=== PATIENT | male | born 1940 | race Caucasian/White ===

== ENCOUNTER → 2016-08-07 | Outpatient (CLI) | payer MEDICARE, BC ==
[~2016-08-07] MED LIST: REGADENOSON 0.4 MG/5 ML SYRINGE IV ONE
--- NOTE | 2016-08-07 11:11 | NM ---
EXAMINATION TYPE: NM stress Lexiscan cardiolite DATE OF EXAM: 08/07/2016 COMPARISON: NONE HISTORY: Atherosclerosis TECHNIQUE: After the intravenous administration of 10.6 mCi Tc 99m Sestamibi - Cardiolite resting SP ECT images acquired 45 minutes post injection. The patient received 0.4mg Lexiscan, 26.9 mCi Tc 99m Sestamibi - Stress images obtained [address] injection FINDINGS: There is good uptake of radiopharmaceutical by the left ventricle without fixed defect or i nducible ischemic change. Wall motion is normal and ejection fraction is calculated at 59%. IMPRESSION: I DO NOT SEE CONVINCING EVIDENCE OF INDUCIBLE ISCHEMIC CHANGE AT THIS TIME.
--- NOTE | 2016-08-07 11:45 | EST ---
DATE OF SERVICE: 08/07/2016 AGE: 76Y SEX: M HT: 5'5-1/2" WT: 173 lbs. Protocol Varun: Other: Lexiscan Cardiolite Stage: Dur. of Exercise: *Heart Rate Blood Pressure *Rest: 77 Rest: 143/76 * *Max. Achieved: 93 Maximum BP: 199/57 85% PMHR: 122 100% PMHR: 143 *METS: INDICATIONS: MEDICATIONS: Patient was given Lexiscan injection over a period of 15 seconds. The peak heart rate of 93 was achieved. Maximum blood pressure of 199/57 mmHg was noted. Resting EKG shows normal sinus rhythm with a QRS morphology suggestive of a right bundle branch block pattern was noted. No significant ST segment change from the baseline was noted. The results of the nuclear study will follow.
== END | disposition home or self-care (01) ==
LOC: RADNMMAIN 07:35
PROVIDERS: ATTEND Internal Medicine
DX: I25.810 Atherosclerosis of coronary artery bypass graft(s) without angina pectoris (principal); E11.9 Type 2 diabetes mellitus without complications; E78.2 Mixed hyperlipidemia; I61.9 Nontraumatic intracerebral hemorrhage, unspecified
CPT/HCPCS: 93017; 78452; A9500; J2785

== ENCOUNTER → 2016-09-03 | Outpatient (CLI) | payer MEDICARE, BC ==
--- NOTE | 2016-09-03 11:27 | XR ---
EXAMINATION TYPE: XR chest 2V DATE OF EXAM: 09/03/2016 COMPARISON: 11/07/10 HISTORY: Shortness of breath TECHNIQUE: Frontal and lateral views of the chest are obtained. FINDINGS: Scattered senescent parenchymal changes noted. Hyperinflation compatible with COPD. No evidence for infiltrate. No evidence for atelectasis. Heart size is stable. Mediastinal structures are stable and grossly unremarkable. No evidence for hilar prominence. Degenerative changes dorsal spine. IMPRESSION: 1. No evidence for acute pulmonary disease.
== END ==
LOC: RADXRMAIN 11:01
PROVIDERS: ATTEND Family Medicine
DX: R05 Cough (principal); R06.02 Shortness of breath
CPT/HCPCS: 71020

== ENCOUNTER → 2017-01-17 | Outpatient (CLI) | payer MEDICARE, BC ==
--- NOTE | 2017-01-17 15:47 | PN ---
PROGRESS NOTE DATE OF SERVICE: 01/17/2017 76-year-old gentleman has been followed in Sleep Center for treatment of obstructive sleep apnea-hypopnea syndrome. Patient continued successfully to use his CPAP equipment without problems related to the mask, tube, filters. [place] Sleepiness Scale today is 4. I checked his CPAP unit. CPAP pressure is 6 cm of water. Leak is only 11 L/minute which is acceptable. Apnea-hypopnea index is 1.4, which is normal range. Usage is 22/30 nights for more than 4 hours for 1 month and for 6 months is 115/180 nights for more than 4 hours. Average usage is 4.7 hours. MEDICATIONS: Verapamil, aspirin, omeprazole, Nitrostat, Lipitor, tamsulosin, finasteride, Flonase, tolterodine, Advil, , Martha, Gabapentin, calcium supplement. PHYSICAL EXAM: GENERAL Patient in no distress. VITAL SIGNS BP 125/56, HR 64, RR 16, oxygen saturation at room air 94% HEENT PERRLA, EOMI, evaluation of oropharynx showed extremely low position of soft palate. NECK Supple, no JVD. Thyroid is not palpable. LUNGS Clear to percussion and to auscultation. Good air exchange. No wheezing or rhonchi. HEART S1, S2 regular. No murmurs, gallops, or rubs. ABDOMEN Soft and nontender. Bowel sounds are present. No organomegaly appreciated. EXTREMITIES No clubbing or cyanosis. ARTIFICIAL GLASS EYE MAKER Awake, alert, and oriented X3. Cranial nerves 2 to 7 intact. There is no fasciculation or atrophy. noted. No focal deficits observed. IMPRESSION: 1. Obstructive sleep apnea-hypopnea syndrome on control with CPAP at 6 cm of water. Patient demonstrated great compliance with treatment benefitting from treatment. 2. Coronary artery disease, status post CABG in 1993. 3. Status post brain surgery for vessel problem in 1998. 4. Status post right knee surgery. 5. History of benign prostatic hypertrophy. 6. History of sinusitis. 7. Status post back surgery. 8. History of emphysema. PLAN: 1. Prescription for all necessary CPAP supplies. 2. Continue to use equipment every night for the whole night. 3. Sleep hygiene with time in bed for at least 8 hours. 4. No driving if feeling sleepiness. 5. Followup visit in 1 year or earlier if patient has any problems. Thank you very much for allowing me to participate in management of your patient. Sincerely, Ismael Aquino MD, PhD, FAASM Diplomat of [place] [employer] [place] [employer] Physician Office Rep of [facility] [place] OSORIO / FIFI: [id number] /
== END ==
LOC: SLEEP 14:01
PROVIDERS: ATTEND Internal Medicine
DX: G47.33 Obstructive sleep apnea (adult) (pediatric) (principal); I25.10 Atherosclerotic heart disease of native coronary artery without angina pectoris; N40.0 Benign prostatic hyperplasia without lower urinary tract symptoms; J43.9 Emphysema, unspecified; J32.9 Chronic sinusitis, unspecified; Z98.890 Other specified postprocedural states; Z79.899 Other long term (current) drug therapy; Z79.82 Long term (current) use of aspirin

== ENCOUNTER → 2017-04-19 | Outpatient (CLI) | payer MEDICARE, BC ==
--- NOTE | 2017-04-23 10:42 | P.ARTDOP ---
Arterial Doppler LOWER EXTREMITY ARTERIAL DOPPLER: DATE OF SERVICE: 04/19/17 Reason for study: Right leg claudication. Doppler waveforms: Atypical bilaterally throughout.. Pulse volume recording: []. Pressure gradients: Across the knee bilaterally. Ankle-brachial indices: 0.87 on the right and 0.80 on the left.. 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
== END | disposition home or self-care (01) ==
LOC: RADUSWWP 13:21
PROVIDERS: ATTEND Internal Medicine
DX: I25.810 Atherosclerosis of coronary artery bypass graft(s) without angina pectoris (principal); E11.9 Type 2 diabetes mellitus without complications; I61.9 Nontraumatic intracerebral hemorrhage, unspecified; G47.33 Obstructive sleep apnea (adult) (pediatric)
CPT/HCPCS: 93923

== ENCOUNTER → 2017-07-16 | Outpatient (CLI) | payer MEDICARE, BC ==
--- NOTE | 2017-07-16 18:15 | XR ---
EXAMINATION TYPE: XR chest 2V DATE OF EXAM: 07/16/2017 COMPARISON: Prior chest 09/03/2016 HISTORY: MRI clearance TECHNIQUE: Frontal and lateral views of the chest are obtained. FINDINGS: The exam is stable. Patient is post median sternotomy. 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 Ventriculoperitoneal shunt tubing is present. Cardiac mediastin al silhouette, pulmonary vascularity and vidya are stable. Suspect some postop change in the upper abd omen. No epicardial pacing leads are evident. IMPRESSION: No acute cardiopulmonary process.
--- NOTE | 2017-07-16 18:15 | XR ---
Skull series HISTORY: Pre-MRI 2 views of the skull. Ventriculostomy tube is noted. No radiopaque foreign body evident. IMPRESSION: Postop changes.
== END | disposition home or self-care (01) ==
LOC: RADXRMAIN 15:49
PROVIDERS: ATTEND Physical Medicine & Rehabilitation
DX: Z03.89 Encounter for observation for other suspected diseases and conditions ruled out (principal); Z95.1 Presence of aortocoronary bypass graft; Z98.890 Other specified postprocedural states
CPT/HCPCS: 70250; 71046

== ENCOUNTER → 2017-08-22 | Outpatient (CLI) | payer MEDICARE, BC ==
--- NOTE | 2017-08-27 10:49 | US ---
EXAMINATION TYPE: US thyroid st tissue head/neck DATE OF EXAM: 08/22/2017 COMPARISON: NONE CLINICAL HISTORY: 77-year-old male E11.0 Parotid mass. Right parotid mass seen on recent outside x-ra y per patient. TECHNIQUE: Multiple sonographic images of the thyroid gland are obtained. FINDINGS: GLAND SIZE: Right Lobe: 5.8 x 1.8 x 2.4 cm Overall Parenchyma: homogenous Left Lobe: 5.6 x 1.9 x 1.9 cm Overall Parenchyma: homogeneous Isthmus Thickness: 0.5 cm NODULES RIGHT: # of nodules measured on right: 1 1. 1.4 X 0.5 x 1.0 cm colloid cyst at the upper pole. This nodule is wider than tall and shows no i ntranodular vascularity. Prior size: no previous LEFT: # of nodules measured on left: 2 1. 0.9 X 0.8 x 1.0 cm hypoechoic mixed nodule at the lower pole with well-defined margins and small calcifications. This nodule is wider than tall and shows no intranodular vascularity. Prior size: no previous 2. 0.6 X 0.6 x 0.6 cm hypoechoic mixed nodule at the lower pole with well-defined margins and small calcifications. This nodule is wider than tall and shows no intranodular vascularity. Prior size: no previous ISTHMUS: # of nodules measured in the isthmus: 1 1. 0.9 X 0.7 x 0.8 cm hypoechoic mixed nodule well-defined margins. This nodule is wider than tall and shows no intranodular vascularity. Small calcifications are present within. Prior size: no previous Bilateral neck scanned, no evidence of lymphadenopathy. Cattle Examiner notes: Enlarged thyroid with bilateral nodules described above. Right parotid: 2.7 x 1.2cm hypoechoic vascular mass Left parotid: appears wnl IMPRESSION: 1. Findings suggest multinodular goiter. There are a few solid nodules on the left and in the isthmus measuring up to 1 cm. These can be followed. 2. A 1.4 cm colloid cyst on the right. 3. 2.7 x 1.2 cm hypoechoic vascular mass within the left parotid gland. Benign and malignant salivary gland tumors are in the differential. Tissue sampling should be considered.
== END | disposition home or self-care (01) ==
LOC: RADUSWWP 08-16 15:15
PROVIDERS: ATTEND Family Medicine
DX: E04.2 Nontoxic multinodular goiter (principal); E04.1 Nontoxic single thyroid nodule
CPT/HCPCS: 76536

== ENCOUNTER → 2017-09-12 | Outpatient (CLI) | payer MEDICARE, BC ==
--- NOTE | 2017-09-12 09:25 | FL ---
ESOPHOGRAM. HISTORY: Dysphagia Esophagram was performed per the air contrast technique. The patient swallowed barium and effervesce nt crystals without difficulty or delay. Esophageal peristalsis and motility appear to be within normal limits. There is no evidence for filling defect, mass or diverticulum. Small hiatal hernia noted. Subsequently single contrast cervical esophagram was performed which fails demonstrate evidence for a spiration penetration or mass. IMPRESSION: 1. Small reducible hiatal hernia. Otherwise unremarkable study.
== END | disposition home or self-care (01) ==
LOC: RADFLWHC 08:00
PROVIDERS: ATTEND Otolaryngology
DX: K44.9 Diaphragmatic hernia without obstruction or gangrene (principal)
CPT/HCPCS: 74220

== ENCOUNTER 2017-09-19 11:58 | Day surgery (SDC) | payer MEDICARE, BC ==
[2017-09-19 12:39] VITALS: RESP 16; TEMP 97.1
--- NOTE | 2017-09-19 14:09 | US ---
ULTRASOUND GUIDED FNA AND CORE BIOPSY right parotid gland mass: CLINICAL HISTORY: Right parotid gland mass FINDINGS: The procedure was explained to the patient. The risks, complications, benefits and alternatives were discussed and any questions were answered. Informed consent was obtained. Patient was placed supin e on the ultrasound table and prepped and draped in the usual sterile fashion. Utilizing a 25 gauge needle, five passes were made into the right parotid gland mass. A single 18-gauge core sample was a lso obtained. Patient was stable throughout the procedure. Pathology is pending. All elements of maximal barrier and sterile technique were utilized. IMPRESSION: 1. Successful ultrasound guided FNA and core biopsy right parotid mass.
[2017-09-19 14:31] VITALS: BP 144/70; PULSE 94
== END 2017-09-19 14:05 | disposition home or self-care (01) ==
LOC: RADPROMAIN 11:58 → EDSTATUS 12:20 → RADPROMAIN 14:05
PROVIDERS: ATTEND Otolaryngology
DX: D11.0 Benign neoplasm of parotid gland (principal)
CPT/HCPCS: 10022; 42400; 76942; 88173; 88305

== ENCOUNTER 2017-12-13 06:49 | Day surgery (SDC) | payer MEDICARE, BC ==
[2017-12-11 10:19] VITALS: BMI 28.4
[~2017-12-13 06:49] MED LIST changes: +LACTATED RINGERS 1,000 ML IV SCH; +LIDOCAINE 1% 20 ML VIAL (10MG/ML) FOR IV START INTRADERMA PRN; -REGADENOSON 0.4 MG/5 ML SYRINGE IV ONE
[2017-12-13 07:19] VITALS: TEMP 97.1
[2017-12-13 07:21] LABS: Glucose,Whole Blood 107 mg/dL (75-99)
[2017-12-13] MEDS ORDERED: PROPOFOL 10 MG/ML 20 ML VIAL IV ONE (07:27)
[2017-12-13] MEDS ORDERED: LIDOCAINE 1% INJ 10MG/ML (20 ML MDV) ONE (07:27)
--- NOTE | 2017-12-13 07:46 | P.GSHP ---
History of Present Illness H&P Date: 12/13/17 Chief Complaint: dysphagia, history of colon polyps patient here today for upper and lower endoscopy. Patient has had complaints of dysphagia. He believes he may have a hiatal hernia. Minimal reflux symptoms. Also having colonoscopy performed. Last colonoscopy over 10 years ago. History of known polyps. No bowel complaints. Past Medical History Past Medical History: Coronary Artery Disease (CAD), Diabetes Mellitus, GERD/ Reflux, GI Bleed, Hyperlipidemia, Myocardial Infarction (IA), Osteoarthritis (OA ), Prostate Disorder, Sleep Apnea/CPAP/BIPAP Additional Past Medical History / Comment(s): BRAIN BLEED 1998, HAD SHUNT PLACED. Blood pressure to be kept low for shunt. DIET-CONTROLLED DM. GI BLEEDING R/T ULCER IN . HIATAL HERNIA. BPH. USES CPAP. CHRONIC BACK PAIN. Last Myocardial Infarction Date:: 1993 History of Any Multi-Drug Resistant Organisms: MRSA Date of last positivie culture/infection: 2014 MDRO Source:: LT ELBOW Past Surgical History: Appendectomy, Back Surgery, Coronary Bypass/CABG, Heart Catheterization With Stent, Orthopedic Surgery, Tonsillectomy Additional Past Surgical History / Comment(s): Brain Shunt 1998. TRIPLE CABG 1993. RADIAL CARITOTOMY. RT KNEE SURG. PTCA W/ 2 STENTS 2016. Past Anesthesia/Blood Transfusion Reactions: Motion Sickness Additional Past Anesthesia/Blood Transfusion Reaction / Comment(s): MOTION SICKNESS CHILD Date of Last Stent Placement:: 2016 Smoking Status: Former smoker - Past Family History Father Family Medical History: Chest Pain / Angina, Myocardial Infarction (IA) Mother Family Medical History: CVA/TIA Medications and Allergies Home Medications Medication Instructions Recorded Confirmed Type Aspirin [Adult Low Dose Aspirin EC] 81 mg PO DAILY 02/02/16 12/13/17 History Atorvastatin [Lipitor] 20 mg PO MOTUWETHFR 02/02/16 12/13/17 History Finasteride [Proscar] 5 mg PO HS 02/02/16 12/13/17 History Fluticasone Nasal [place] [Flonase 2 spr EA NOSTRIL HS PRN 02/02/16 12/13/17 History Nasal [place]] Gabapentin [Neurontin] 1 tab PO Q8H 02/02/16 12/13/17 History Niacinamide [Niacin] 500 mg PO DAILY@1200 02/02/16 12/13/17 History Nitroglycerin Sl Tabs [Nitrostat] 0.4 mg SUBLINGUAL Q5M PRN 02/02/16 12/11/17 History Omeprazole [PriLOSEC] 20 mg PO DAILY 02/02/16 12/13/17 History Saw [place] 1,000 mg PO HS 02/02/16 12/11/17 History Tamsulosin HCl [Flomax] 0.4 mg PO HS 02/02/16 12/13/17 History Verapamil HCl [Verapamil ER] 120 mg PO DAILY 02/02/16 12/13/17 History Calcium Carbonate [Calcium] 500 mg PO DAILY 09/12/17 12/13/17 History Cetirizine HCl [Zyrtec] 10 mg PO DAILY 09/12/17 12/13/17 History Clopidogrel [Plavix] 75 mg PO DAILY 09/12/17 12/11/17 History Ibuprofen [Advil] 200 mg PO Q8HR PRN 09/12/17 12/11/17 History Tolterodine Tartrate [Detrol LA] 4 mg PO AC-SUPPER 09/12/17 12/13/17 History Ubidecarenone [Co Q-10] 100 mg PO DAILY 09/12/17 12/13/17 History Acetaminophen [Tylenol Extra 500 - 1,000 mg PO Q4-6H PRN 12/11/17 12/11/17 History Strength] Allergies Allergy/AdvReac Type Severity Reaction Status Date / Time Sulfa (Sulfonamide Allergy Rash/Hives Verified 12/13/17 07:10 Antibiotics) Surgical - Exam Vital Signs Temp Pulse Resp BP Pulse Ox 97.1 F L 77 17 145/67 93 L 12/13/17 07:13 12/13/17 07:13 12/13/17 07:13 12/13/17 07:13 12/13/17 07:13 Physical exam: General: Well-developed, well-nourished HEENT: Normocephalic, sclerae nonicteric Abdomen: Nontender, nondistended Extremities: No edema Neuro: Alert and oriented Results - Labs Abnormal Lab Results - Last 24 Hours (Table) 12/13/17 Range/Units 07:19 POC Glucose (mg/dL) 107 H (75-99) mg/dL Assessment and Plan (1) Dysphagia Narrative/Plan: Will proceed with upper and lower endoscopy at this time. Current Visit: Yes Status: Acute Code(s): R13.10 - DYSPHAGIA, UNSPECIFIED SNOMED Code(s): 23745386
--- NOTE | 2017-12-13 08:16 | P.PCN ---
Date of Procedure: 12/13/17 Procedure(s) Performed: PREOPERATIVE DIAGNOSIS: dysphagia, history of polyps POSTOPERATIVE DIAGNOSIS: gastritis, small gastric nodule, hiatal hernia, PROCEDURE: 1. EGD with biopsy 2. Colonoscopy with snare polypectomy ANESTHESIA: MAC SURGEON: Dariel Hennessy M.D. SPECIMENS: [] ENDOSCOPIC PROCEDURE: The patient was on the endoscopy table in the left decubitus position. The Olympus gastroscope was inserted into the oropharynx and passed under direct visualization to the region of the third portion of the duodenum. From that point the scope was slowly withdrawn inspecting all surfaces carefully. There were no neoplastic inflammatory or polypoid lesions throughout the duodenum. The pylorus was widely patent. The stomach was carefully inspected. There was mild gastritis present. A biopsy of the antrum took place to rule out H. pylori. also there was noted be a small nodule in the antrum and a biopsy was taken. This was very superficial in nature. Retroflexion revealed a small hiatal hernia. The patient's esophagus otherwise appeared normal without evidence of obstruction or narrowing. The patient was kept on the endoscopy table in the left decubitus position. The Olympus colonoscope was inserted into the anus and passed under direct visualization to the base of the cecum. The appendiceal orifice was visualized. From that point the scope was slowly withdrawn inspecting all surfaces carefully. There were no neoplastic inflammatory or polypoid lesions throughout the cecum. at the distal ascending colon near the hepatic flexure right 2 small polyps were seen and removed using the snare with cautery technique. Transverse colon appeared normal. The descending colon 2 additional polyps were identified and removed in a similar fashion. The sigmoid and rectum appeared normal with the exception of a distal rectal polyp that was present about 7 cm above the anus. This was removed using the snare with cautery technique. There was no visible diverticulosis. Digital rectal examination was normal. The patient was taken to the recovery room in stable condition per anesthesia guidelines. RECOMMENDATIONS: await biopsy results.
[2017-12-13 08:23] VITALS: RESP 16
[2017-12-13 08:46] VITALS: BP 117/59; PULSE 68
== END 2017-12-13 09:19 | disposition home or self-care (01) ==
LOC: ORWHC2ENDO 06:49
PROVIDERS: ATTEND Surgery
DX: K29.50 Unspecified chronic gastritis without bleeding (principal); K31.9 Disease of stomach and duodenum, unspecified; D12.4 Benign neoplasm of descending colon; D12.3 Benign neoplasm of transverse colon; D12.8 Benign neoplasm of rectum; K44.9 Diaphragmatic hernia without obstruction or gangrene; Z86.010 Personal history of colon polyps; K21.9 Gastro-esophageal reflux disease without esophagitis; I25.10 Atherosclerotic heart disease of native coronary artery without angina pectoris; E11.9 Type 2 diabetes mellitus without complications; E78.5 Hyperlipidemia, unspecified; M19.90 Unspecified osteoarthritis, unspecified site; N40.0 Benign prostatic hyperplasia without lower urinary tract symptoms; M54.9 Dorsalgia, unspecified; G89.29 Other chronic pain; G47.33 Obstructive sleep apnea (adult) (pediatric); I25.2 Old myocardial infarction; Z95.5 Presence of coronary angioplasty implant and graft; Z95.1 Presence of aortocoronary bypass graft; Z99.89 Dependence on other enabling machines and devices; Z79.02 Long term (current) use of antithrombotics/antiplatelets; Z79.82 Long term (current) use of aspirin; Z79.899 Other long term (current) drug therapy; Z88.2 Allergy status to sulfonamides; Z87.19 Personal history of other diseases of the digestive system; Z86.14 Personal history of Methicillin resistant Staphylococcus aureus infection; Z87.891 Personal history of nicotine dependence
CPT/HCPCS: 88305; 45385; 43239; J2001; J2704

== ENCOUNTER → 2017-12-26 | Outpatient (CLI) | payer MEDICARE, BC ==
--- NOTE | 2017-12-26 11:38 | SFUN ---
SLEEP CENTER FOLLOW UP NOTE DATE OF SERVICE: 12/26/2017 This 77-year-old gentleman has been followed in the sleep center for treatment of obstructive sleep apnea-hypopnea syndrome. The patient successfully continued to use his equipment every night for the whole night only one problem is that the patient referred that he is opening his mouth during the sleep even he has chinstrap with nasal mask. [place] Sleepiness Scale today is 3. I checked patient's CPAP unit. CPAP pressure is 6 cm of water. Patient using it every night and / nights more than 7 hours. Average usage 5.3 hours. Leak is 10 L/minute which is acceptable. Apnea-hypopnea index only 1.2, which is absolutely perfect. MEDICATIONS: Verapamil, Lipitor, tamsulosin, finasteride, Flonase, , Zyrtec, gabapentin, calcium, omeprazole, Nitrostat, niacinamide, Plavix. PHYSICAL EXAMINATION: During physical exam, patient in no distress. VITAL SIGNS: BP 138/68, HR 68, RR 16, height 5 feet 4-3/4 inches, weight 179.8, body mass index 30.2, temperature 97.8, oxygen saturation in room air 93%. HEENT: PERRLA, EOMI. Oropharynx extremely low position of soft palate. NECK: Supple, no JVD. Thyroid is not palpable. LUNGS: Clear to percussion and to auscultation. Good air exchange. No wheezing or rhonchi. HEART: S1, S2 regular. No murmurs, gallops, or rubs. ABDOMEN: Soft and nontender. Bowel sounds are present. No organomegaly appreciated. EXTREMITIES: No clubbing or cyanosis. TEACHING DIETITIAN: Awake, alert, and oriented X3. Cranial nerves 2 to 7 intact. There is no fasciculation or atrophy. noted. No focal deficits observed. IMPRESSION: 1. Obstructive sleep apnea-hypopnea syndrome. Patient demonstrated great compliance with treatment benefitting from treatment. 2. Coronary artery disease, status post CABG in 1993. 3. Status post brain surgery for vessel problem in 1998. 4. Status post right knee surgery. 5. Benign prostatic hypertrophy. 6. History of sinusitis. 7. Status post back surgery. 8. History of emphysema. PLAN: 1. Will fit patient with full-face mask DreamWear mid size. Patient likes this mask. 2. Prescription to maintain all necessary CPAP supplies including new mask, tubes, filters. 3. Patient will continue to use CPAP equipment every night for the whole night with the same pressure. 4. Watching weight. 5. No driving if feeling sleepiness. 6. Sleep hygiene with regular time in bed for at least 8 hours. Thank you very much for allowing me to participate in management of your patient. Sincerely, Ismael Aquino MD, PhD, FAASM Diplomat of [place] [employer] [employer] Midlevel Provider of [facility] [place] MMODL / EMILYN: [id number] /
== END | disposition home or self-care (01) ==
LOC: SLEEP 09:51
PROVIDERS: ATTEND Internal Medicine
DX: G47.33 Obstructive sleep apnea (adult) (pediatric) (principal); I25.10 Atherosclerotic heart disease of native coronary artery without angina pectoris; N40.0 Benign prostatic hyperplasia without lower urinary tract symptoms; Z96.651 Presence of right artificial knee joint; Z95.1 Presence of aortocoronary bypass graft; Z98.890 Other specified postprocedural states

== ENCOUNTER → 2018-05-27 | Outpatient (CLI) | payer MEDICARE, BC ==
--- NOTE | 2018-05-27 08:04 | US ---
EXAMINATION TYPE: US thyroid st tissue head/neck DATE OF EXAM: 05/27/2018 COMPARISON: US CLINICAL HISTORY: E04.1 Thyroid nodule; B11.0 Parotid mass. H/O parotid mass right side, pt states di fficulty swallowing GLAND SIZE: Right Lobe: 5.8 x 2.4 x 1.9 cm Overall Parenchyma: heterogenous Left Lobe: 5.1 x 2.1 x 1.6 cm Overall Parenchyma: heterogeneous Isthmus Thickness: 0.6 cm NODULES RIGHT: # of nodules measured on right: 1 1. 1.2 X 0.4 x 0.8 cm Colloid cyst upper pole Prior size: 1.4 x 0.5 x 1.0 LEFT: # of nodules measured on left: 2 1. 0.9 X 0.7 x 0.8 cm hypoechoic mixed nodule at the lower pole with well-defined margins; This no dule is wider than tall and shows no intranodular vascularity. Prior size: 0.9 x 0.8 x 1.0 2. 0.6 X 0.4 x 0.5 cm hypoechoic mixed nodule at the lower pole with well-defined margins; This nod ule is taller than wide and shows no intranodular vascularity. Prior size: 0.6 x 0.6 x 0.6 Bilateral neck scanned, no evidence of lymphadenopathy. Stable nodules bilateral thyroid/ Right parot id mass as seen on previous exam= 3.3 x 1.4 x 1.8 cm/ Previous measurement= 2.7 x 1.2 x 2.1 cm IMPRESSION: Stable nonspecific nodularity as discussed above.
== END | disposition home or self-care (01) ==
LOC: RADUSWWP 06:53
PROVIDERS: ATTEND Otolaryngology
DX: E04.1 Nontoxic single thyroid nodule (principal); K11.9 Disease of salivary gland, unspecified
CPT/HCPCS: 76536

== ENCOUNTER → 2018-12-25 | Outpatient (CLI) | payer OTHER ==
--- NOTE | 2018-12-25 12:23 | SFUN ---
SLEEP CENTER FOLLOW UP NOTE DATE OF SERVICE: 12/25/2018 This 78-year-old gentleman has been followed in sleep center for treatment of obstructive sleep apnea-hypopnea syndrome. Patient continued to use equipment most of the night. Does not snore with the machine. [place] Sleepiness Scale today is 3, which is felt to be normal. I checked CPAP unit. CPAP pressure is 6 cm of water. Patient using equipment for every night 180 out of 180 nights for 6 months and 136 out of 180 nights for more than 4 hours with average usage 5.6 hours per night. Leak is 5 L/minute, which is absolutely normal. Apnea-hypopnea index reading for the last 6 months is 4.4, which is in normal range. MEDICATIONS: Verapamil, aspirin, omeprazole, Nitrostat, Lipitor, tamsulosin, finasteride, Nasacort, tolterodine, Advil, vitamins, Zyrtec, gabapentin, Plavix, calcium supplement. PHYSICAL EXAMINATION: During physical exam, patient in no distress. VITAL SIGNS: BP 139/64, HR 66, RR 16, height 5 feet 4-1/2 inches, weight 166, body mass index 28, temperature 97.1, Oxygen saturation on room air 98%. HEENT: PERRLA, EOMI. Oropharynx extremely low soft palate, Mallampati 4. NECK: Supple, no JVD. Thyroid is not palpable. LUNGS: Clear to percussion and to auscultation. Good air exchange. No wheezing or rhonchi. HEART: S1, S2 regular. No murmurs, gallops, or rubs. ABDOMEN: Soft and nontender. Bowel sounds are present. No organomegaly appreciated. EXTREMITIES: No clubbing or cyanosis. PREFORM MACHINE OPERATOR: Awake, alert, and oriented X3. Cranial nerves 2 to 7 intact. There is no fasciculation or atrophy. noted. No focal deficits observed. IMPRESSION: 1. Obstructive sleep apnea-hypopnea syndrome. Patient demonstrated great compliance with treatment, benefitting from treatment. 2. Coronary artery disease, status post coronary artery bypass grafting in 1993. 3. Status post brain surgery for vessel problem in 1998. 4. Status post right knee surgery. 5. Benign prostatic hypertrophy. 6. History of sinusitis. 7. Status post back surgery. 8. History of emphysema. PLAN: 1. Patient will continue to use CPAP equipment every night for the whole night. 2. Watching weight. 3. Sleep hygiene with regular time in bed for 7-1/2 hours. 4. Precautions related to driving. No driving if feeling any sleepiness. 5. I will maintain all necessary prescriptions for CPAP supplies including mask, tube, filters. 6. Follow-up visit in one year or earlier if patient has any problems. Thank you very much for allowing me to participate in management of your patient. Sincerely, Ismael Aquino MD, PhD, FAASM Diplomat of [place] [employer] [place] [employer] Brim Ironer Hand of [facility] [place] MMODL / IJN: [id number] /
== END | disposition home or self-care (01) ==
LOC: SLEEP 11:13
PROVIDERS: ATTEND Internal Medicine
DX: G47.33 Obstructive sleep apnea (adult) (pediatric) (principal); I25.10 Atherosclerotic heart disease of native coronary artery without angina pectoris; N40.0 Benign prostatic hyperplasia without lower urinary tract symptoms; Z95.1 Presence of aortocoronary bypass graft; Z87.39 Personal history of other diseases of the musculoskeletal system and connective tissue; Z87.09 Personal history of other diseases of the respiratory system; Z98.890 Other specified postprocedural states; Z99.89 Dependence on other enabling machines and devices; Z79.82 Long term (current) use of aspirin; Z79.1 Long term (current) use of non-steroidal anti-inflammatories (NSAID); Z79.02 Long term (current) use of antithrombotics/antiplatelets; Z79.899 Other long term (current) drug therapy

== ENCOUNTER 2019-08-20 12:21 | Observation (INO) | payer MEDICARE, BC ==
[2019-08-20] MEDS: SODIUM CHLORIDE 0.9% 1,000 ML IV STA ×2 (12:34→20:34)
[2019-08-20 12:57] LABS: Basophils % (A) 1 %; Eosinophils # (A) 0.2 k/uL (0-0.7); Eosinophils % (A) 3 %; HCT 40.7 % (39.0-53.0); HGB 13.7 gm/dL (13.0-17.5); Lymphocytes # (A) 1.3 k/uL (1.0-4.8); Lymphocytes % (A) 18 %; MCH 33.3 pg (25.0-35.0); MCHC 33.7 g/dL (31.0-37.0); MCV 98.9 fL (80.0-100.0); Mean Platelet Volume 7.5; Monocytes # (A) 0.5 k/uL (0-1.0); Monocytes % (A) 7 %; Neutrophils # (A) 4.8 k/uL (1.3-7.7); Neutrophils % (A) 69 %; Platelet Count 169 k/uL (150-450); RBC 4.11 m/uL (4.30-5.90); RDW 12.4 % (11.5-15.5)
[2019-08-20 12:58] LABS: ALT 32 U/L (4-49); AST 32 U/L (17-59); African American GFR (CKD) >90 (>60 ml/min/1.73 sqM); Albumin 3.7 g/dL (3.5-5.0); Alkaline Phosphatase 49 U/L (38-126); Anion Gap 8 mmol/L; Blood Urea Nitrogen 19 mg/dL (9-20); Calcium 8.8 mg/dL (8.4-10.2); Carbon Dioxide 21 mmol/L (22-30); Chloride 109 mmol/L (98-107); Creatine Kinase 69 U/L (55-170); Glucose 148 mg/dL (74-99); Magnesium 1.9 mg/dL (1.6-2.3); Non-African American GFR(CKD) 82 (>60 ml/min/1.73 sqM); Potassium 3.8 mmol/L (3.5-5.1); Sodium 138 mmol/L (137-145); Total Bilirubin 0.5 mg/dL (0.2-1.3); Total Protein 6.5 g/dL (6.3-8.2)
--- NOTE | 2019-08-20 13:04 | XR ---
EXAMINATION TYPE: XR chest 2V DATE OF EXAM: 08/20/2019 COMPARISON: 07/16/2017 HISTORY: 79-year-old male with chest pain TECHNIQUE: AP and lateral views FINDINGS: Median sternotomy wires are present with post-CABG clips in the mediastinum. Heart normal size. Ather osclerotic arch calcifications. Bony vasculature within normal limits. Some mild strandy atelectasis is present. No consolidation or pleural effusion. Right-sided POWER PLANT OPERATOR APPRENTICE shunt catheter. Lower thoracic vertebroplasty change. IMPRESSION: No acute cardiopulmonary process.
[2019-08-20 13:07] LABS: Partial Thromboplastin Time 23.5 sec (22.0-30.0)
--- NOTE | 2019-08-20 13:28 | ED ---
Chest Pain HPI - General Chief Complaint: Chest Pain Stated Complaint: Chest Pain Time Seen by Provider: 08/20/19 12:22 Source: patient, EMS, RN notes reviewed, old records reviewed Mode of arrival: EMS Limitations: no limitations - History of Present Illness Initial Comments: This is an 79-year-old male DF for evaluation of chest pain patient's sudden onset of severe chest pain all working today. 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 She given nitro per EMS chest pain resolved here in the ER. No significant travel history or sick contacts. Patient has had CABG cardiac bypass in the past and states pain felt similar to then. No prior issues since is never to take nitro before has not had recurrent chest pain MD Complaint: chest pain -: minutes(s) Onset: during exertion Pain Location: substernal, left chest Pain Radiation: none Severity: moderate Severity scale (1-10): 7 Quality: heaviness Consistency: constant, now resolved Improves With: nothing Worsens With: nothing Context: other (None) Anginal Symptoms: diaphoresis, dyspnea Other Symptoms: palpitations Treatments Prior to Arrival: none - Related Data Home Medications Medication Instructions Recorded Confirmed Aspirin [Adult Low Dose Aspirin EC] 81 mg PO DAILY 02/02/16 12/13/17 Atorvastatin [Lipitor] 20 mg PO MOTUWETHFR 02/02/16 12/13/17 Finasteride [Proscar] 5 mg PO HS 02/02/16 12/13/17 Fluticasone Nasal Moran [Flonase 2 spr EA NOSTRIL HS PRN 02/02/16 12/13/17 Nasal Moran] Gabapentin [Neurontin] 1 tab PO Q8H 02/02/16 12/13/17 Niacinamide [Niacin] 500 mg PO DAILY@1200 02/02/16 12/13/17 Nitroglycerin Sl Tabs [Nitrostat] 0.4 mg SUBLINGUAL Q5M PRN 02/02/16 12/11/17 Omeprazole [PriLOSEC] 20 mg PO DAILY 02/02/16 12/13/17 Saw Aiken 1,000 mg PO HS 02/02/16 12/11/17 Tamsulosin HCl [Flomax] 0.4 mg PO HS 02/02/16 12/13/17 Verapamil HCl [Verapamil ER] 120 mg PO DAILY 02/02/16 12/13/17 Calcium Carbonate [Calcium] 500 mg PO DAILY 09/12/17 12/13/17 Cetirizine HCl [Zyrtec] 10 mg PO DAILY 09/12/17 12/13/17 Clopidogrel [Plavix] 75 mg PO DAILY 09/12/17 12/11/17 Ibuprofen [Advil] 200 mg PO Q8HR PRN 09/12/17 12/11/17 Tolterodine Tartrate [Detrol LA] 4 mg PO AC-SUPPER 09/12/17 12/13/17 Ubidecarenone [Co Q-10] 100 mg PO DAILY 09/12/17 12/13/17 Acetaminophen [Tylenol Extra 500 - 1,000 mg PO Q4-6H PRN 12/11/17 12/11/17 Strength] Allergies Allergy/AdvReac Type Severity Reaction Status Date / Time Sulfa (Sulfonamide Allergy Rash/Hives Verified 08/20/19 13:53 Antibiotics) Review of Systems ROS Statement: Those systems with pertinent positive or pertinent negative responses have been documented in the HPI. ROS Other: All systems not noted in ROS Statement are negative. EKG Findings - EKG Comments: EKG Findings:: EKG shows sinus a rate of 70, MD 156 QRS 130 QTc 470 Past Medical History Past Medical History: Hyperlipidemia, Hypertension, Myocardial Infarction ([place]) Additional Past Medical History / Comment(s): blood pressure to be kept low for shunt. Last Myocardial Infarction Date:: 1993 History of Any Multi-Drug Resistant Organisms: None Reported Past Surgical History: Back Surgery, Coronary Bypass/CABG, Orthopedic Surgery, Tonsillectomy Additional Past Surgical History / Comment(s): brain shunt Past Psychological History: No Psychological Hx Reported Smoking Status: Former smoker General Exam Limitations: no limitations General appearance: alert, in no apparent distress Head exam: Present: atraumatic, normocephalic, normal inspection Eye exam: Present: normal appearance, PERRL, EOMI. Absent: scleral icterus, conjunctival injection, periorbital swelling ENT exam: Present: normal exam, mucous membranes moist Neck exam: Present: normal inspection. Absent: tenderness, meningismus, lymphadenopathy Respiratory exam: Present: normal lung sounds bilaterally. Absent: respiratory distress, wheezes, rales, rhonchi, stridor Cardiovascular Exam: Present: regular rate, normal rhythm, normal heart sounds. Absent: systolic murmur, diastolic murmur, rubs, gallop, clicks GI/Abdominal exam: Present: soft, normal bowel sounds. Absent: distended, tenderness, guarding, rebound, rigid Extremities exam: Present: normal inspection, full ROM, normal capillary refill. Absent: tenderness, pedal edema, joint swelling, calf tenderness Back exam: Present: normal inspection Neurological exam: Present: alert, oriented X3, CN II-XII intact Psychiatric exam: Present: normal affect, normal mood Skin exam: Present: warm, dry, intact, normal color. Absent: rash Course Vital Signs 08/20/19 12:22 Temperature 98.5 F Pulse Rate 61 Respiratory 18 Rate Blood Pressure 145/61 O2 Sat by Pulse 96 Oximetry - Reevaluation(s) Reevaluation #1: 08/20/19 13:52 Medical record is reviewed Reevaluation #2: 08/20/19 13:52 Patient remains without chest pain - Consultations Consultation #1: Spoke with Dr. Urban who agrees to admit patient Chest Pain MDM - [facility] 79-year-old male to the ER for evaluation patient presents today for evaluation of chest pain. Patient will be admitted for chest pain observation EKG is normal troponin is negative Critical Care Time Critical Care Time: Yes Total Critical Care Time: 31 Disposition Clinical Impression: Chest pain Disposition: ADMITTED IP TO THIS [facility] Condition: Fair Is patient prescribed a controlled substance at d/c from ED?: No Referrals: Alfonso Urban DO [Primary Care Provider] - 1-2 days
[2019-08-20] MEDS ORDERED: NITROGLYCERIN SL TABS 0.4 MG TAB SUBLINGUAL PRN ×2 (14:09→18:00)
[2019-08-20] MEDS ORDERED: HEPARIN SODIUM,PORCINE 5,000 UNIT/ML 1 ML VIAL IV PRN (14:09)
[2019-08-20] MEDS ORDERED: MORPHINE SULFATE 4 MG/ML SYRINGE IV PRN (14:09)
[2019-08-20] MEDS ORDERED: ASPIRIN 81 MG PO STA (14:09)
[2019-08-20] MEDS ORDERED: HEPARIN SODIUM,PORCINE 5,000 UNIT/ML 1 ML VIAL IV ONE (14:09)
[2019-08-20] MEDS: HEPARIN SOD,PORK IN 0.45% NACL 25,000 UNIT in 0.45% NACL 1 250ML.BAG IV SCH (15:10)
[2019-08-20] MEDS: SODIUM CHLORIDE 0.9% 1,000 ML IV SCH (15:12)
--- NOTE | 2019-08-20 18:07 | P.HPIM ---
History of Present Illness Patient very pleasant 79-year-old male with known history of coronary disease follows up with the silicator in [facility] came in with the exertional chest pain while he was lifting boxes at [employer]. Patient also felt that dizzy lightheaded L chest pain started for few minutes and resolved after taking nitroglycerin chest pain is nonpleuritic localized to the precordial area up both on the right and left-sided associated with some lightheadedness denied any diaphoresis denied any shortness of breath. Patient chest pain was 7/10 in severity came down to 2/10 in severity after taking nitroglycerin. His chest pain is similar to when he had coronary artery bypass grafting. Patient denied any fever chills cough. Patient believes he had a stress test about any other ago at his silicator's office and a recent echocardiogram in his silicator's office. Review of Systems REVIEW OF SYSTEMS: CONSTITUTIONAL: No fever, no malaise, no fatigue. HEENT: No recent visual problems or hearing problems. Denied any sore throat. CARDIOVASCULAR: No orthopnea, PND, no palpitations, no syncope. PULMONARY: No shortness of breath, no cough, no hemoptysis. GASTROINTESTINAL: No diarrhea, no nausea, no vomiting, no abdominal pain. NEUROLOGICAL: No headaches, no weakness, no numbness. HEMATOLOGICAL: Denies any bleeding or petechiae. GENITOURINARY: Denies any burning micturition, frequency, or urgency. MUSCULOSKELETAL/RHEUMATOLOGICAL: Denies any joint pain, swelling, or any muscle pain. ENDOCRINE: Denies any polyuria or polydipsia. The rest of the 14-point review of systems is negative. Past Medical History Past Medical History: Hyperlipidemia, Hypertension, Myocardial Infarction ([place]) Additional Past Medical History / Comment(s): blood pressure to be kept low for shunt. Last Myocardial Infarction Date:: 1993 History of Any Multi-Drug Resistant Organisms: None Reported Past Surgical History: Back Surgery, Coronary Bypass/CABG, Orthopedic Surgery, Tonsillectomy Additional Past Surgical History / Comment(s): brain shunt Past Psychological History: No Psychological Hx Reported Smoking Status: Former smoker Medications and Allergies Home Medications Medication Instructions Recorded Confirmed Type Aspirin [Adult Low Dose Aspirin EC] 81 mg PO HS 02/02/16 08/20/19 History Atorvastatin [Lipitor] 20 mg PO MOTUWETHFR 02/02/16 08/20/19 History Finasteride [Proscar] 5 mg PO HS 02/02/16 08/20/19 History Gabapentin [Neurontin] 1 cap PO Q8H 02/02/16 08/20/19 History Niacinamide [Niacin] 1,000 mg PO DAILY@1200 02/02/16 08/20/19 History Nitroglycerin Sl Tabs [Nitrostat] 0.4 mg SUBLINGUAL Q5M PRN 02/02/16 08/20/19 History Omeprazole [PriLOSEC] 20 mg PO DAILY 02/02/16 08/20/19 History Tamsulosin HCl [Flomax] 0.4 mg PO HS 02/02/16 08/20/19 History Verapamil HCl [Verapamil ER] 120 mg PO DAILY 02/02/16 08/20/19 History Cetirizine HCl [Zyrtec] 10 mg PO DAILY@1200 09/12/17 08/20/19 History Clopidogrel [Plavix] 75 mg PO DAILY 09/12/17 08/20/19 History Ibuprofen [Advil] 200 mg PO Q8HR PRN 09/12/17 08/20/19 History Tolterodine Tartrate [Detrol LA] 4 mg PO AC-SUPPER 09/12/17 08/20/19 History Ubidecarenone [Co Q-10] 100 mg PO HS 09/12/17 08/20/19 History Calcium 500mg/Vit D3 400 Iu 1 tab PO BID 08/20/19 08/20/19 History Cholecalciferol [Vitamin D3] 400 unit PO AC-SUPPER 08/20/19 08/20/19 History Pygeum 25mg &Saw Nora 80mg 2 cap PO AC-SUPPER 08/20/19 08/20/19 History Triamcinolone Acetonide [Nasacort] 2 spray EA NOSTRIL HS 08/20/19 08/20/19 History Allergies Allergy/AdvReac Type Severity Reaction Status Date / Time Sulfa (Sulfonamide Allergy Rash/Hives Verified 08/20/19 13:53 Antibiotics) Physical Exam Vitals: Vital Signs Temp Pulse Resp BP Pulse Ox 08/20/19 15:50 56 L 18 134/80 97 08/20/19 14:46 57 L 20 144/64 96 08/20/19 12:22 98.5 F 61 18 145/61 96 Intake and Output 08/20/19 08/20/19 08/20/19 06:59 14:59 22:59 Other: Weight 74.389 kg PHYSICAL EXAMINATION: GENERAL: The patient is alert and oriented x3, not in any acute distress. Well developed, well nourished. HEENT: Pupils are round and equally reacting to light. EOMI. No scleral icterus. No conjunctival pallor. Normocephalic, atraumatic. No pharyngeal erythema. No thyromegaly. CARDIOVASCULAR: S1 and S2 present. No murmurs, rubs, or gallops. PULMONARY: Chest is clear to auscultation, no wheezing or crackles. ABDOMEN: Soft, nontender, nondistended, normoactive bowel sounds. No palpable organomegaly. MUSCULOSKELETAL: No joint swelling or deformity. EXTREMITIES: No cyanosis, clubbing, or pedal edema. NEUROLOGICAL: Gross neurological examination did not reveal any focal deficits. SKIN: No rashes. Results CBC & Chem 7: 08/20/19 12:33 08/20/19 12:33 Labs: Abnormal Lab Results - Last 24 Hours (Table) 08/20/19 08/20/19 Range/Units 12:33 12:33 RBC 4.11 L (4.30-5.90) m/uL Chloride 109 H (98-107) mmol/L Carbon Dioxide 21 L (22-30) mmol/L Glucose 148 H (74-99) mg/dL Assessment and Plan Plan: -Chest pain: We will rule out acute coronary syndromes patient has typical chest pain. Patient had a recent stress test which was negative. Patient wanted to get cardiac cath done here in this hospital if needed and if cardiology decides patient requires one. Patient was started on metoprolol by ER physician because of that reason I'll hold off on verapamil his heart rate is 54 now. -Hypertension -hyperlipidemia -History of coronary artery disease -Gastroesophageal reflux disease For above-mentioned chronic medical problems patient will be resumed and continued on appropriate home medications
[2019-08-20] MEDS ORDERED: hydrALAZINE HCL 20 MG/ML 1 ML VIAL IVP STA (20:11)
[2019-08-20] MEDS: TAMSULOSIN 0.4 MG CAP.ER.24H PO SCH (22:44)
[2019-08-20] MEDS: METOPROLOL TARTRATE 25 MG TAB PO SCH (22:45)
[2019-08-20] MEDS: FLUTICASONE 50MCG/SPRAY NASAL 16GM EA NOSTRIL SCH (23:56)
[2019-08-20] MEDS: FINASTERIDE 5 MG TAB PO SCH (23:56)
[2019-08-21] MEDS: GABAPENTIN 300 MG CAP PO SCH ×4 (00:44→23:54)
[2019-08-21] MEDS: SODIUM CHLORIDE 0.9% 1,000 ML IV SCH ×3 (05:22→21:23)
[2019-08-21 06:09] LABS: Mean Platelet Volume 7.9; Platelet Count 169 k/uL (150-450)
[2019-08-21 06:59] LABS: Cholesterol 103 mg/dL (<200); HDL Cholesterol 45 mg/dL (40-60); LDL Cholesterol,Calculated 43 mg/dL (0-99); Triglycerides 75 mg/dL (<150)
[2019-08-21] MEDS ORDERED: ASPIRIN 325 MG TAB PO SCH (09:00)
[2019-08-21] MEDS ORDERED: SODIUM CHLORIDE 0.9% 1,000 ML in EMPTY BAG 1 BAG IV ONE (09:32)
[2019-08-21] MEDS ORDERED: ASPIRIN 325 MG TAB PO STA (09:32)
[2019-08-21] MEDS ORDERED: ATORVASTATIN 80 MG TAB PO STA (09:32)
[2019-08-21] MEDS ORDERED: ALPRAZolam 0.5 MG TAB PO PRN (09:32)
[2019-08-21] MEDS ORDERED: NITROGLYCERIN SL TABS 0.4 MG TAB SUBLINGUAL PRN (09:32)
[2019-08-21] MEDS ORDERED: ALPRAZolam 0.25 MG TAB PO PRN (09:32)
--- NOTE | 2019-08-21 10:42 | CONS ---
CONSULTATION This is an 79-year-old gentleman who is remarkably active for his age. He has history of coronary artery disease, prior bypass surgery in 1994 at [facility] and has since then had his care at [facility]. In 2018, he had 2 stents placed in the LAD, details of which are not available. I looked at the stent card and he had 2 drug- eluting stents of 3.2 and 2.25 caliber and placed probably in the LAD. He is a reasonably active person. He works in [employer] and as he was working yesterday lifting boxes, he developed chest discomfort, took nitroglycerin, had relief, then came into the emergency room. After arrival, his troponins are normal. He is resting comfortably. His symptoms suggest exertional angina, but at the time of my evaluation, he is comfortable. Earlier today he had chest pressure of 3/10, but now he is asymptomatic. PAST MEDICAL HISTORY: 1. History of CAD with prior bypass surgery in 1993 and PCI at [facility] in 2018, details unavailable. 2. Hypertension. 3. Hypercholesterolemia. 4. It is unclear if he had a prior history of PR. MEDICATIONS: Medications at home include verapamil, Plavix 75 mg daily, vitamin supplements, Lipitor 20 mg daily, Proscar 5 mg daily, niacin, omeprazole and he also takes aspirin 81 mg daily. ALLERGIES: Allergies are SULFA. REVIEW OF SYSTEMS: Unremarkable other than above-mentioned facts. LABORATORY DATA: Suggests 3 sets of troponins are normal. Renal function is good. Patient is on intravenous heparin. PHYSICAL EXAMINATION: On examination, blood pressure is 140/60, pulse rate is 70 per minute. HEENT unremarkable. Fundus was not examined by me. Neck is supple. There is no JVD. I do hear a carotid bruit, more prominent on the right. Heart exam reveals S1, S2 with a short systolic murmur. Lungs are clear. Abdomen is soft, nontender. Lower extremities reveal diminished pulses. Central nervous system is normal. EKG revealed sinus mechanism, right bundle, left axis, no acute changes. IMPRESSION: 1. Unstable angina. 2. History of prior bypass surgery and PCI. 3. Hypertension. 4. Hyperlipidemia. RECOMMENDATIONS: I am recommending an echocardiogram, I am also advising coronary angiography. Beta blockers have been initiated. I am advising coronary angiography and based on findings, intervention. Patient understands the rationale, risks, benefits, options and wishes to proceed with the procedure which will be performed later on today. MMODL / IJN: [id number] /
[2019-08-21] MEDS: METOPROLOL TARTRATE 25 MG TAB PO SCH ×2 (10:53→21:23)
[2019-08-21] MEDS: PANTOPRAZOLE 40 MG TABLET PO SCH (10:54)
[2019-08-21] MEDS: CLOPIDOGREL 75 MG TAB PO SCH (10:54)
[2019-08-21] MEDS: ATORVASTATIN 80 MG TAB PO SCH (10:55)
[2019-08-21] MEDS: LORATADINE 10 MG TAB PO SCH (10:57)
[2019-08-21] MEDS ORDERED: IV FLUID CONTINUATION 1,000 ML IV ONE (13:20)
[2019-08-21] MEDS ORDERED: LIDOCAINE 1% INJ 10MG/ML (20 ML MDV) ONE (13:26)
[2019-08-21] MEDS ORDERED: MIDAZOLAM 2 MG/2 ML VIAL IV ONE (13:34)
[2019-08-21] MEDS ORDERED: LIDOCAINE 1% INJ 10MG/ML (20 ML MDV) SQ ONE (13:35)
--- NOTE | 2019-08-21 13:37 | ECHOF ---
Referral Reason:chest pain MEASUREMENTS -------- HEIGHT: 165.1 cm WEIGHT: 74.4 kg BP: RVIDd: 3.7 cm (< 3.3) IVSd: 1.2 cm (0.6 - 1.1) LVIDd: 4.5 cm (3.9 - 5.3) LVPWd: 0.8 cm (0.6 - 1.1) IVSs: 1.7 cm LVIDs: 3.1 cm LVPWs: 1.7 cm LA Diam: 3.8 cm (2.7 - 3.8) LAESV Index (A-L): 25.49 ml/m Ao Diam: 3.1 cm (2.0 - 3.7) AV Cusp: 1.9 cm (1.5 - 2.6) LA Diam: 4.1 cm (2.7 - 3.8) MV EXCURSION: 21.171 mm (> 18.000) MV EF SLOPE: 74 mm/s (70 - 150) EPSS: 0.4 cm MV E Al: 0.73 m/s MV DecT: 251 ms MV A Al: 1.02 m/s MV E/A Ratio: 0.72 RAP: 5.00 mmHg RVSP: 36.34 mmHg FINDINGS -------- Sinus rhythm. This was a technically good study. The left ventricular size is normal. There is mild concentric left ventricular hypertrophy. Overa ll left ventricular systolic function is low-normal with, an EF between 50 - 55 %. The right ventricle is normal in size. The left atrial size is normal. Normal LA size by volume 22+/-6 ml/m2. The right atrial size is normal. There is mild aortic valve sclerosis. There is no evidence of aortic regurgitation. Mild mitral annular calcification present. Mild mitral regurgitation is present. Mild tricuspid regurgitation present. There is mild pulmonary hypertension. The right ventricular systolic pressure, as measured by Doppler, is 36.34mmHg. Trace/mild (physiologic) pulmonic regurgitation. The aortic root size is normal. There is no pericardial effusion. CONCLUSIONS -------- 1. Sinus rhythm. 2. This was a technically good study. 3. The left ventricular size is normal. 4. There is mild concentric left ventricular hypertrophy. 5. Overall left ventricular systolic function is low-normal with, an EF between 50 - 55 %. 6. The right ventricle is normal in size. 7. The left atrial size is normal. 8. Normal LA size by volume 22+/-6 ml/m2. 9. The right atrial size is normal. 10. There is mild aortic valve sclerosis. 11. Mild mitral annular calcification present. 12. Mild mitral regurgitation is present. 13. Mild tricuspid regurgitation present. 14. There is mild pulmonary hypertension. 15. The right ventricular systolic pressure, as measured by Doppler, is 36.34mmHg. 16. Trace/mild (physiologic) pulmonic regurgitation. 17. The aortic root size is normal. 18. There is no pericardial effusion. REGULATORY SPECIALIST: Isabela Salas RDCS
--- NOTE | 2019-08-21 13:46 | P.PN ---
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
[2019-08-21] MEDS ORDERED: IOPAMIDOL-370 100ML BTL INJ ONE (13:51)
[2019-08-21] MEDS ORDERED: OXYBUTYNIN 10 MG TAB.ER.24 PO SCH (17:30)
[2019-08-21] MEDS: HEPARIN SOD,PORK IN 0.45% NACL 25,000 UNIT in 0.45% NACL 1 250ML.BAG IV SCH (17:37)
--- NOTE | 2019-08-21 17:39 | CC ---
CARDIAC CATHETERIZATION REPORT DATE OF SERVICE: 08/21/2019 PROCEDURE PERFORMED: Left heart catheterization and coronary angiography and selective injection of bypass grafts and left internal mammary artery injection. PERFORMED BY: Dr. Meagan Guillen. SEDATION: Moderate conscious sedation time was 22 minutes. Patient was administered Versed. Oxygen saturation, hemodynamics and EKG were monitored closely. CLINICAL INFORMATION: Mr. Prakash Rosenthal is an 79-year-old gentleman with history of known CAD and prior bypass surgery and PCI. He presented to the hospital with symptoms of unstable angina with equivocal EKG changes. No troponin elevation. Because of chest pain this morning, was advised cardiac cath. Risks, benefits, options, rationale were explained. He underwent aortocoronary bypass surgery in 1993 with 3 grafts probably BENITEZ to LAD, vein graft to the PDA branch of RCA and obtuse marginal branch of circumflex. He also had PCI performed of the LAD in 2018 at [facility]. CARDIAC CATHETERIZATION FINDINGS: The left ventricular end-diastolic pressure was about 14 mmHg without any gradient across aortic valve. CORONARY ANGIOGRAPHY FINDINGS: RIGHT CORONARY ARTERY: This is totally occluded with limited antegrade flow. LEFT MAIN CORONARY ARTERY: Short patent vessel that immediately bifurcates into LAD and circumflex. Left main is so small and has probably some 30% disease. LEFT ANTERIOR DESCENDING CORONARY: This vessel is presumably occluded in the midportion, but from the left main onwards there is a stent. The stent is widely patent. It tapers down into the opacified portion of the LAD. It continues into the diagonal branch, but the LAD itself is totally occluded and I cannot see a stump. The vessel starts off as LAD. There are 2 stents, then continues into diagonal and a small septal branch is free of significant disease. LEFT POSTERIOR CIRCUMFLEX CORONARY ARTERY. Small vessel. Limited flow distally with diffuse disease. Very limited circulation noted. LEFT INTERNAL MAMMARY ARTERY GRAFT TO LAD: This graft is widely patent, opacifies the entire LAD and at that site of the attachment, there is no significant disease. It also retrogradely fills some of the LAD and goes almost back to the origin. The proximal portion of the LAD is diffuse disease but distal portion has mild diffuse disease but good flow. SAPHENOUS VEIN GRAFT TO THE PDA BRANCH OF RCA: This graft is widely patent in its origin, course and insertion site and opacified PDA is free of significant disease. It goes back and fills the main trunk of the RCA and also opacifies an acute marginal branch, but there is diffuse disease within the RCA. The PDA branch has a decent flow. SAPHENOUS VEIN GRAFT TO THE OBTUSE MARGINAL BRANCH OF CIRCUMFLEX: This graft is totally occluded, seen as a stump. LV-gram was not performed. FINAL IMPRESSION: This patient has a totally occluded RCA, totally occluded mid LAD and very limited flow in the circumflex. The BENITEZ to the mid LAD is widely patent. It also fills retrogradely. The opacified LAD just after the left main has been stented and is widely patent. The circumflex is almost nonexistent. The obtuse marginal graft is totally occluded. The graft to the PDA branch of RCA is patent with good opacification of the PDA and also retrogradely fills the RCA which is diffusely disease. This patient has significant peripheral artery disease as well. I had difficulty cannulating the right femoral artery and there was a gradient of 40 mmHg between the central aorta and the femoral artery. RECOMMENDATIONS: I am recommending that we should continue aggressive medical therapy with risk factor modification. No intervention necessary. Patient can be discharged tomorrow on medical therapy. I will add a beta pia and discontinue verapamil. He will be on 25 mg of metoprolol tartrate b.i.d. and I will discontinue verapamil and add a small dose of losartan 50 mg daily for optimizing BP control. Findings were discussed with the patient in detail and I also spoke to his . OSORIO / FIFI: [id number] /
[2019-08-21] MEDS: FINASTERIDE 5 MG TAB PO SCH (21:22)
[2019-08-21] MEDS: FLUTICASONE 50MCG/SPRAY NASAL 16GM EA NOSTRIL SCH (21:22)
[2019-08-21] MEDS: HEPARIN SODIUM,PORCINE 5,000 UNIT/ML 1 ML VIAL SQ SCH (21:23)
[2019-08-21] MEDS: TAMSULOSIN 0.4 MG CAP.ER.24H PO SCH (21:23)
[2019-08-22 06:39] LABS: Mean Platelet Volume 7.7; Platelet Count 172 k/uL (150-450)
[2019-08-22] MEDS: GABAPENTIN 300 MG CAP PO SCH (08:45)
[2019-08-22] MEDS: ATORVASTATIN 80 MG TAB PO SCH (08:45)
[2019-08-22] MEDS: PANTOPRAZOLE 40 MG TABLET PO SCH (08:46)
[2019-08-22] MEDS: HEPARIN SODIUM,PORCINE 5,000 UNIT/ML 1 ML VIAL SQ SCH (08:46)
[2019-08-22] MEDS: SODIUM CHLORIDE 0.9% 1,000 ML IV SCH (08:46)
[2019-08-22] MEDS: METOPROLOL TARTRATE 25 MG TAB PO SCH (08:46)
[2019-08-22] MEDS: CLOPIDOGREL 75 MG TAB PO SCH (08:46)
[2019-08-22] MEDS ORDERED: LOSARTAN 50 MG TAB PO SCH (09:00)
[2019-08-22] MEDS ORDERED: ASPIRIN 81 MG PO SCH (09:00)
--- NOTE | 2019-08-22 09:28 | PN ---
PROGRESS NOTE Mr. Rosenthal is an 79-year-old gentleman underwent cardiac cath yesterday. Two of the grafts are open, 1 is occluded, has a patent LAD that was stented. I am recommending that we will continue medical therapy. I discontinued verapamil, placed him on metoprolol tartrate 25 mg b.i.d. and also suggested that he should take losartan 50 mg daily. Blood pressure is good. Right groin is clean and dry. Vitals are stable. No JVD. S1-S2 heard normally. Carotid bruit is audible. Lungs are clear. Abdomen and lower extremity exam unchanged. I am recommending home today with optimal medical therapy, not to return to work until I see him. Same medical regimen as indicated above. MMODL / IJN: [id number] /
[2019-08-22 09:31] VITALS: BP 159/63; PULSE 72; RESP 12; TEMP 98.2
[2019-08-22] MEDS: LORATADINE 10 MG TAB PO SCH (12:28)
--- NOTE | 2019-08-22 19:43 | P.DS ---
Providers Date of admission: 08/20/19 14:09 Attending physician: Alfonzo Diaz Consults: 08/20/19 14:09 Consult Physician Urgent Consulting Provider: Katlin Arteaga Consult Reason/Comments: cp Do you want consulting provider notified?: Yes Primary care physician: Alfonso Urban [facility] Course: diagnoses: -Chest pain secondary to CAD: underwent cardiac cath ( see below) -Hypertension -hyperlipidemia -History of coronary artery disease -Gastroesophageal reflux disease Hospital course Patient very pleasant 79-year-old male with known history of coronary disease follows up with the fur operator in came in with the exertional chest pain while he was lifting boxes. pt underwent cardiac cath on 08/20 where two of the grafts were open, one is occluded , has a patnet LAD that was stented. post procedure pt was doing well with no chest pain or dyspnea , no dizziness, no change in his bowel or urine habits, no fever. fur operator recommended to adjust medication ,metoprolol was added while verapamil was stopped , losartan added also pt was feeling well and he was asking medical team to be discharged home today stating he is back to his normal state pt was evaluated by fur operator on the day of discharge and cleared him for discharge Dr. Guillen which discussed the case with me, and he wanted to see him in the office within one week , pt informed and he agrees to call and make ap pointment. pt is advised not to drive for two day, avoid strenuous activities and not to be back to work till he sees in the office and pt agrees as well with these recommendations . Pt was instructed about the problems and management plan and Pt verbalized understanding and acceptance Pt is found stable and can be discharged to the community but needs follow up as outpt Pt instructed to follow up with his dr.James Hamilton PCP in one week and she agrees. and instructed to call and make appointment with office in one week and he agrees to call and make his appointment ( appointments could not be done by staff due to weekend) Discharge exam Gen.: Patient alert awake and oriented X 3, NOT IN DISTRESS CVS: s1-s2, RRR, no murmur CHEST:bilateral CTA, no wheezing or crepitation Abdomen: Soft, no tenderness, no distention, positive bowel sounds Extremities: No leg edema or induration time spent : more than 35 min Patient Condition at Discharge: Fair Plan - Discharge Summary Discharge Rx Participant: No New Discharge Prescriptions: New Losartan [Cozaar] 50 mg PO DAILY #30 tab Atorvastatin [Lipitor] 80 mg PO DAILY #30 tab Metoprolol Tartrate [Lopressor] 25 mg PO BID #60 tab Nitroglycerin Sl Tabs [Nitrostat] 0.4 mg SUBLINGUAL Q5M PRN #20 tab PRN Reason: Chest Pain Continue Niacinamide [Niacin] 1,000 mg PO DAILY@1200 Tamsulosin HCl [Flomax] 0.4 mg PO HS Nitroglycerin Sl Tabs [Nitrostat] 0.4 mg SUBLINGUAL Q5M PRN PRN Reason: Chest Pain Finasteride [Proscar] 5 mg PO HS Omeprazole [PriLOSEC] 20 mg PO DAILY Aspirin [Adult Low Dose Aspirin EC] 81 mg PO HS Gabapentin [Neurontin] 1 cap PO Q8H Ubidecarenone [Co Q-10] 100 mg PO HS Cetirizine HCl [Zyrtec] 10 mg PO DAILY@1200 Tolterodine Tartrate [Detrol LA] 4 mg PO AC-SUPPER Clopidogrel [Plavix] 75 mg PO DAILY Calcium 500mg/Vit D3 400 Iu 1 tab PO BID Pygeum 25mg &Saw [place] 80mg 2 cap PO AC-SUPPER Cholecalciferol [Vitamin D3] 400 unit PO AC-SUPPER Triamcinolone Acetonide [Nasacort] 2 spray EA NOSTRIL HS Discontinued Atorvastatin [Lipitor] 20 mg PO MOTUWETHFR Verapamil HCl [Verapamil ER] 120 mg PO DAILY Ibuprofen [Advil] 200 mg PO Q8HR PRN PRN Reason: Pain Discharge Medication List Aspirin [Adult Low Dose Aspirin EC] 81 mg PO HS 02/02/16 [History] Finasteride [Proscar] 5 mg PO HS 02/02/16 [History] Gabapentin [Neurontin] 1 cap PO Q8H 02/02/16 [History] Niacinamide [Niacin] 1,000 mg PO DAILY@1200 02/02/16 [History] Nitroglycerin Sl Tabs [Nitrostat] 0.4 mg SUBLINGUAL Q5M PRN 02/02/16 [History] Omeprazole [PriLOSEC] 20 mg PO DAILY 02/02/16 [History] Tamsulosin HCl [Flomax] 0.4 mg PO HS 02/02/16 [History] Cetirizine HCl [Zyrtec] 10 mg PO DAILY@1200 09/12/17 [History] Clopidogrel [Plavix] 75 mg PO DAILY 09/12/17 [History] Tolterodine Tartrate [Detrol LA] 4 mg PO AC-SUPPER 09/12/17 [History] Ubidecarenone [Co Q-10] 100 mg PO HS 09/12/17 [History] Calcium 500mg/Vit D3 400 Iu 1 tab PO BID 08/20/19 [History] Cholecalciferol [Vitamin D3] 400 unit PO AC-SUPPER 08/20/19 [History] Pygeum 25mg &Saw [place] 80mg 2 cap PO AC-SUPPER 08/20/19 [History] Triamcinolone Acetonide [Nasacort] 2 spray EA NOSTRIL HS 08/20/19 [History] Atorvastatin [Lipitor] 80 mg PO DAILY #30 tab 08/22/19 [Rx] Losartan [Cozaar] 50 mg PO DAILY #30 tab 08/22/19 [Rx] Metoprolol Tartrate [Lopressor] 25 mg PO BID #60 tab 08/22/19 [Rx] Nitroglycerin Sl Tabs [Nitrostat] 0.4 mg SUBLINGUAL Q5M PRN #20 tab 08/22/19 [Rx] Follow up Appointment(s)/Referral(s): Alfonso Urban DO [Primary Care Provider] - 1-2 days Catherine Guillen MD [STAFF PHYSICIAN] - 1 Week Activity/Diet/Wound Care/Special Instructions: heart healthy diet activity is limited till you see your doctor [facility] office will call you for a follow up appointment. Please call Dr. Urban for hospital follow up appointment next week. No pushing, pulling or lifting! Discharge/Stand Alone Forms: Work/Release Restrictions Form, Work/School Relea se / Restrict Discharge Disposition: HOME SELF-CARE
== END 2019-08-22 14:03 | disposition home or self-care (01) ==
LOC: EC 12:21 → 1SOBS 14:09
PROVIDERS: ADMIT Hospitalist; ATTEND Hospitalist
DX: I25.110 Atherosclerotic heart disease of native coronary artery with unstable angina pectoris (principal); I25.82 Chronic total occlusion of coronary artery; I25.710 Atherosclerosis of autologous vein coronary artery bypass graft(s) with unstable angina pectoris; I10 Essential (primary) hypertension; E78.5 Hyperlipidemia, unspecified; K21.9 Gastro-esophageal reflux disease without esophagitis; E78.00 Pure hypercholesterolemia, unspecified; I73.9 Peripheral vascular disease, unspecified; Z20.828 Contact with and (suspected) exposure to other viral communicable diseases; Z79.82 Long term (current) use of aspirin; Z79.02 Long term (current) use of antithrombotics/antiplatelets; Z88.2 Allergy status to sulfonamides; I25.2 Old myocardial infarction; Z95.1 Presence of aortocoronary bypass graft; Z98.2 Presence of cerebrospinal fluid drainage device; Z87.891 Personal history of nicotine dependence; Z95.5 Presence of coronary angioplasty implant and graft
CPT/HCPCS: 93005 ×2; 96366 ×3; 96375; 96376; 96361; 96365; 99291; 36415; 93306; 93459; 83880; 80061; 80053; 82550; 83735; 84484; 85025; 85049 ×2; 85610; 85730 ×3; 71046; 99152; G0378 ×3; C1769 ×4; C1894; U0003; S0138 ×2; J2250; J2270; J0360; J1644 ×4; J2001; Q9967

== ENCOUNTER → 2019-09-14 | Outpatient (CLI) | payer MEDICARE, BC ==
--- NOTE | 2019-09-14 16:45 | US ---
EXAMINATION TYPE: US thyroid st tissue head/neck DATE OF EXAM: 09/14/2019 COMPARISON: NONE CLINICAL HISTORY: E04.1 THYROID NODULE. Right parotid mass, thyroid nodules GLAND SIZE: Right Lobe: 5.7 x 1.9 x 2.1 cm Overall Parenchyma: heterogenous Left Lobe: 5.4 x 1.8 x 1.9 cm Overall Parenchyma: heterogeneous Isthmus Thickness: 0.5 cm NODULES RIGHT: # of nodules measured on right: 1 1. 1.3 X 0.5 x 0.9 cm Colloid cyst upper pole Prior size: 1.2 x 0.4 x 0.8 cm LEFT: # of nodules measured on left: 2 1. 0.9 X 0.7 x 0.9 cm hypoechoic mixed nodule at the lower pole with well-defined margins; . This nodule is wider than tall and shows no intranodular vascularity. Prior size: 0.9 x 0.7 x 0.8 cm 2. 0.5 X 0.6 x 0.6 cm hypoechoic mixed nodule at the lower pole with well-defined margins; . This n odule is taller than wide and shows no intranodular vascularity. Prior size: 0.6 x 0.4 x 0.5 cm ISTHMUS: # of nodules measured in the isthmus: 0 Bilateral neck scanned, no evidence of lymphadenopathy. Right parotid mass as seen on prior exam = 3. 6 x 1.2 x 2.6cm. This is homogenous and has internal vascular flow. Previous measurement 3.3 x 1.4 x 1.8 cm. IMPRESSION: 1. Thyroid nodules present bilaterally. 2. Right parotid mass.
== END | disposition home or self-care (01) ==
LOC: RADUSWWP 09:27
PROVIDERS: ATTEND Otolaryngology
DX: E04.2 Nontoxic multinodular goiter (principal)
CPT/HCPCS: 76536

== ENCOUNTER 2019-12-24 16:22 | Observation (INO) | payer MEDICARE, BC ==
[2019-12-24] MEDS ORDERED: NITROGLYCERIN-D5W PMX 50 MG in DEXTROSE/WATER 1 250ML.BAG IV ONE (16:52)
[2019-12-24] MEDS ORDERED: MORPHINE SULFATE 4 MG/ML SYRINGE IVP STA (16:52)
[2019-12-24 17:08] LABS: Albumin 3.9 g/dL (3.5-5.0); Calcium 9.5 mg/dL (8.4-10.2); Potassium 4.2 mmol/L (3.5-5.1); Total Bilirubin 0.9 mg/dL (0.2-1.3); Total Protein 7.2 g/dL (6.3-8.2)
[2019-12-24 17:21] LABS: HCT 40.4 % (39.0-53.0); HGB 12.8 gm/dL (13.0-17.5); MCH 31.6 pg (25.0-35.0); MCHC 31.8 g/dL (31.0-37.0); MCV 99.3 fL (80.0-100.0); Platelet Count 186 k/uL (150-450); RBC 4.07 m/uL (4.30-5.90)
--- NOTE | 2019-12-24 17:41 | XR ---
EXAMINATION: XR chest 2V DATE AND TIME: 12/24/2019 5:29 PM CLINICAL INDICATION: PHH; Chest Pain TECHNIQUE: Departmental protocol COMPARISON: 08/20/2019 FINDINGS: Sternotomy sutures and mediastinal clips noted. Vertically oriented catheter overlies the r ight hemithorax, primarily over the spine. EKG leads. The lungs are clear. The pleural spaces are negative. The cardiac silhouette is not enlarged. The remainder of the mediastinal silhouette is unremarkable. The skeletal structures and soft tissues are negative for acute findings. IMPRESSION: NO ACUTE PROCESS.
[2019-12-24 18:24] LABS: Eosinophils # (M) 0.63 k/uL (0-0.7); Lymphocytes # (M) 2.16 k/uL (1.0-4.8); Monocytes # (M) 1.44 k/uL (0-1.0); Neutrophils # (M) 4.77 k/uL (1.3-7.7); Neutrophils % (M) 53 %; Nucleated Red Blood Cells 0 /100 WBC (0-0); Total Cells Counted 100
--- NOTE | 2019-12-24 18:40 | ED ---
Chest Pain HPI - General Chief Complaint: Chest Pain Stated Complaint: Chest pain Time Seen by Provider: 12/24/19 16:25 Source: EMS Mode of arrival: EMS Limitations: no limitations - History of Present Illness Initial Comments: Patient is an 79-year-old male with past mental history of coronary artery disease status post bypass who presents emergency room with reported chest pain. Patient states this chest pain began at 3:30 and he was driving home from work. States that it is located substernal without radiation. It is graded as a 10 out of 10. Normally he can take a nitro and it alleviates his chest pain however he had no improvement after he took nitro. He was able to get home and told his who called EMS. EMS did provide him with 2 additional nitro and 4 aspirins en route to the hospital. Patient had transient improvement in his symptoms. He denies associated nausea, vomiting or diaphoresis. No ripping or tearing sensation to his back. Denies any numbness or tingling in his extremities. No fevers or chills. No cough. No other alleviating, precipitating or modifying factors - Related Data Home Medications Medication Instructions Recorded Confirmed Aspirin [Adult Low Dose Aspirin EC] 81 mg PO HS 02/02/16 12/24/19 Finasteride [Proscar] 5 mg PO HS 02/02/16 12/24/19 Gabapentin [Neurontin] 300 mg PO Q8H 02/02/16 12/24/19 Niacinamide [Niacin] 1,000 mg PO DAILY@1200 02/02/16 12/24/19 Nitroglycerin Sl Tabs [Nitrostat] 0.4 mg SUBLINGUAL Q5M PRN 02/02/16 12/24/19 Omeprazole [PriLOSEC] 20 mg PO DAILY 02/02/16 12/24/19 Tamsulosin HCl [Flomax] 0.4 mg PO HS 02/02/16 12/24/19 Cetirizine HCl [Zyrtec] 10 mg PO DAILY@1200 09/12/17 12/24/19 Clopidogrel [Plavix] 75 mg PO DAILY 09/12/17 12/24/19 Tolterodine Tartrate [Detrol LA] 4 mg PO AC-SUPPER 09/12/17 12/24/19 Ubidecarenone [Co Q-10] 100 mg PO HS 09/12/17 12/24/19 Calcium 500mg/Vit D3 400 Iu 1 tab PO BID 08/20/19 12/24/19 Cholecalciferol [Vitamin D3] 400 unit PO AC-SUPPER 08/20/19 12/24/19 Pygeum 25mg &Saw [place] 80mg 2 cap PO AC-SUPPER 08/20/19 12/24/19 Triamcinolone Acetonide [Nasacort] 2 spray EA NOSTRIL HS 08/20/19 12/24/19 Previous Rx's Medication Instructions Recorded Atorvastatin [Lipitor] 80 mg PO DAILY #30 tab 08/22/19 Metoprolol Tartrate [Lopressor] 25 mg PO BID #60 tab 08/22/19 Isosorbide Mononitrate ER [Imdur] 60 mg PO DAILY #30 tab.er.24h 12/26/19 Allergies Allergy/AdvReac Type Severity Reaction Status Date / Time Sulfa (Sulfonamide Allergy Rash/Hives Verified 12/24/19 17:33 Antibiotics) Review of Systems ROS Statement: Those systems with pertinent positive or pertinent negative responses have been documented in the HPI. ROS Other: All systems not noted in ROS Statement are negative. EKG Findings - EKG Comments: EKG Findings:: EKG demonstrates a sinus rhythm with a ventricular rate of 63. AK interval 200. QRS 138. QTC of 509. Right bundle branch block present. Right bundle branch block was present on previous EKG in August Past Medical History Past Medical History: Hyperlipidemia, Hypertension, Myocardial Infarction ([place]) Additional Past Medical History / Comment(s): blood pressure to be kept low for shunt. Last Myocardial Infarction Date:: 1993 History of Any Multi-Drug Resistant Organisms: None Reported Past Surgical History: Back Surgery, Coronary Bypass/CABG, Heart Catheterization With Stent, Orthopedic Surgery, Tonsillectomy Additional Past Surgical History / Comment(s): brain shunt Date of Last Stent Placement:: 2017 Past Psychological History: No Psychological Hx Reported Past Alcohol Use History: None Reported Past Drug Use History: None Reported - Past Family History Father Family Medical History: Diabetes Mellitus, Myocardial Infarction ([place]) Additional Family Medical History / Comment(s): heart attack 86 Mother Additional Family Medical History / Comment(s): of stroke General Exam Limitations: no limitations General appearance: alert, in no apparent distress Head exam: Present: atraumatic, normocephalic, normal inspection Eye exam: Present: normal appearance, PERRL, EOMI. Absent: scleral icterus, conjunctival injection, periorbital swelling ENT exam: Present: normal exam, mucous membranes moist Neck exam: Present: normal inspection. Absent: tenderness, meningismus, lymphadenopathy Respiratory exam: Present: normal lung sounds bilaterally. Absent: respiratory distress, wheezes, rales, rhonchi, stridor Cardiovascular Exam: Present: regular rate, normal rhythm, normal heart sounds. Absent: systolic murmur, diastolic murmur, rubs, gallop, clicks GI/Abdominal exam: Present: soft, normal bowel sounds. Absent: distended, tenderness, guarding, rebound, rigid Extremities exam: Present: normal inspection, full ROM, normal capillary refill. Absent: tenderness, pedal edema, joint swelling, calf tenderness Back exam: Present: normal inspection Neurological exam: Present: alert, oriented X3, CN II-XII intact Psychiatric exam: Present: normal affect, normal mood Skin exam: Present: warm, dry, intact, normal color. Absent: rash Course Vital Signs 12/24/19 12/24/19 12/24/19 16:22 16:49 17:34 Temperature 97.4 F L Pulse Rate 62 59 L 60 Pulse Rate [ Oil Lease Broker ] Respiratory 16 16 16 Rate Blood Pressure 95/48 110/61 155/69 Blood Pressure [Right Arm] O2 Sat by Pulse 100 99 97 Oximetry 12/24/19 12/24/19 12/24/19 17:52 18:51 20:21 Temperature Pulse Rate 57 L 79 Pulse Rate [ Oil Lease Broker ] Respiratory 16 16 Rate Blood Pressure 152/65 149/95 154/75 Blood Pressure [Right Arm] O2 Sat by Pulse 97 95 Oximetry 12/24/19 12/25/19 12/25/19 22:14 01:07 01:43 Temperature 99.6 F Pulse Rate 100 Pulse Rate [ Oil Lease Broker ] Respiratory 16 Rate Blood Pressure 127/54 142/65 Blood Pressure [Right Arm] O2 Sat by Pulse 95 Oximetry 12/25/19 12/25/19 12/25/19 03:00 06:33 08:00 Temperature 99.3 F 99.1 F Pulse Rate 96 Pulse Rate [ 63 Oil Lease Broker ] Respiratory 18 16 Rate Blood Pressure 112/47 Blood Pressure 113/60 [Right Arm] O2 Sat by Pulse 97 97 Oximetry 12/25/19 12:00 Temperature 99.1 F Pulse Rate Pulse Rate [ 56 L Oil Lease Broker ] Respiratory 18 Rate Blood Pressure Blood Pressure 113/58 [Right Arm] O2 Sat by Pulse 94 L Oximetry Chest Pain MDM - MDM Upon arrival patient is placed into room 9. A thorough history and physical exam was performed. Peripheral IV is established. The patient was given 4 mg of morphine for pain control. 12-lead EKG was performed which demonstrates a normal sinus rhythm. Laboratory studies were conducted. Patient went for chest x-ray. Patient continues to have tendon a 10 chest pain and therefore he is started on a nitro drip. Laboratory studies reviewed. First troponin is negative. Patient is reevaluated and continues to complain of significant 8 out of 10 chest pain. Because of this patient was sent for a CT of his chest which demonstrates no signs of pulmonary embolism or dissection. Prominent coronary calcifications. He should was given a dose of Protonix and maintained on the nitro drip. Reevaluation demonstrates the patient is now pain-free at this time. Because of his significant cardiac history did recommend hospitalization. Discussed case with Dr. Urban who agreed to admit the patient. I will consult cardiology. Patient remained in stable condition awaiting a bed on the floor Disposition Clinical Impression: Chest pain Disposition: ADMITTED IP TO THIS HOSP Condition: Serious Is patient prescribed a controlled substance at d/c from ED?: No Decision to Admit Reason: Admit from EC Decision Date: 12/24/19 Decision Time: 19:17
[2019-12-24] MEDS ORDERED: PANTOPRAZOLE 40 MG/10 ML VIAL IVP STA (19:16)
[2019-12-24] MEDS ORDERED: MORPHINE SULFATE 4 MG/ML SYRINGE IV PRN (19:18)
[2019-12-24] MEDS ORDERED: NALOXONE 0.4 MG/ML 1 ML VIAL IV PRN (19:18)
--- NOTE | 2019-12-24 19:27 | CT ---
EXAMINATION TYPE: CT chest angio for PE without contrast and with 3-D reconstruction renderings DATE OF EXAM: 12/24/2019 COMPARISON: None HISTORY: Chest pain CT DLP: 387.4 mGycm Automated exposure control for dose reduction was used. CONTRAST: CT Chest for pulmonary embolism performed with with IV Contrast, patient injected with 80 m L of Isovue 370. FINDINGS: AIRWAYS: There is an 6 mm mean diameter partial filling defect in the right posterolateral trachea, on axial lung algorhythm series 406, image 32/159. Its heterogeneous CT attenuation suggests the find ing represents phlegm, but this suspicion can be confirmed with continued clinical surveillance, or 3 month follow-up CT. LUNGS: There are no acute bony findings. A few scattered subcentimeter pulmonary nodules are present, greater on the right. These are of questionable silhouette significance. There is no prior outside i nstitution CT with which to compare, would recommend 3 month follow-up CT recommended characterizatio n. MEDIASTINUM: There is satisfactory enhancement of the pulmonary artery and its branches, with no CT e vidence for pulmonary embolism. No acute aortic findings. There are no greater than 1 cm hilar or med iastinal lymph nodes. Prominent left and right coronary calcifications are noted. There is no cardiom egaly and no pericardial effusion. However, there are several subcentimeter lymph nodes throughout th e bilateral vidya and mediastinum; nonspecific but if no prior outside institution CT with which to co mpare, would recommend 3 month follow-up CT recommended characterization. OTHER: No additional significant abnormality is seen. IMPRESSION: 1. NEGATIVE FOR PULMONARY EMBOLISM. 2. PROMINENT CORONARY CALCIFICATIONS. 3. Incidentals: 6 mm mean diameter intratracheal tracheal filling defect, subcentimeter pulmonary n odules, and multifocal 1 cm mediastinal and bilateral hilar lymph nodes. Would suggest retrieval of outside institution prior chest CT for an addendum to be made to this repo rt. If such CT not available, would recommend 3 month follow-up CT.
[2019-12-24] MEDS: NITROGLYCERIN-D5W PMX 50 MG in DEXTROSE/WATER 1 250ML.BAG IV ONE ×2 (20:02→20:04)
[2019-12-24] MEDS: GABAPENTIN 300 MG CAP PO SCH (20:07)
[2019-12-24] MEDS ORDERED: NON FORMULARY DRUG (Ubidecarenone [Co Q-10] 300 MG Capsule) PO SCH (21:00)
[2019-12-25] MEDS ORDERED: ACETAMINOPHEN TAB 325 MG TAB PO STA (01:45)
[2019-12-25] MEDS: TAMSULOSIN 0.4 MG CAP.ER.24H PO SCH ×2 (01:56→20:53)
[2019-12-25] MEDS: FINASTERIDE 5 MG TAB PO SCH ×2 (01:56→01:57)
[2019-12-25] MEDS: ASPIRIN 81 MG PO SCH ×2 (01:56→20:53)
[2019-12-25] MEDS: METOPROLOL TARTRATE 25 MG TAB PO SCH ×3 (01:57→20:53)
[2019-12-25] MEDS: CALCIUM CARB-VIT D 500MG-200UN 1 EACH TAB PO SCH ×3 (02:15→21:11)
[2019-12-25] MEDS: GABAPENTIN 300 MG CAP PO SCH ×3 (06:37→21:10)
[2019-12-25] MEDS: SODIUM CHLORIDE 0.9% 1,000 ML IV SCH ×2 (08:59→20:54)
[2019-12-25] MEDS: FLUTICASONE 50MCG/SPRAY NASAL 16GM EA NOSTRIL SCH ×2 (08:59→20:53)
[2019-12-25 09:20] LABS: Basophils % (A) 0 %; Eosinophils # (A) 0.2 k/uL (0-0.7); Eosinophils % (A) 3 %; HCT 40.1 % (39.0-53.0); Lymphocytes # (A) 1.3 k/uL (1.0-4.8); Lymphocytes % (A) 13 %; MCH 32.4 pg (25.0-35.0); MCHC 32.6 g/dL (31.0-37.0); MCV 99.6 fL (80.0-100.0); Mean Platelet Volume 7.2; Monocytes % (A) 11 %; Neutrophils # (A) 6.6 k/uL (1.3-7.7); Neutrophils % (A) 71 %; Platelet Count 164 k/uL (150-450); RBC 4.02 m/uL (4.30-5.90); RDW 12.5 % (11.5-15.5); WBC 9.4 k/uL (3.8-10.6)
[2019-12-25 09:39] LABS: Calcium 8.9 mg/dL (8.4-10.2)
[2019-12-25] MEDS: ATORVASTATIN 80 MG TAB PO SCH (09:59)
[2019-12-25] MEDS: CLOPIDOGREL 75 MG TAB PO SCH (10:00)
[2019-12-25] MEDS: PANTOPRAZOLE 40 MG TABLET PO SCH (10:01)
[2019-12-25] MEDS: LOSARTAN 50 MG TAB PO SCH (10:01)
--- NOTE | 2019-12-25 11:46 | CONS ---
CONSULTATION CHIEF COMPLAINT: Chest pain. HISTORY OF PRESENT ILLNESS: Prakash is an 79-year-old gentleman with history of coronary artery disease status post CABG, who presented to hospital with chest pain. He works at [employer] and while driving home, had an episode of chest tightness following which he came to the hospital and got admitted. It is mild to moderate intensity at rest, unassociated with diaphoresis without definite radiation to neck, arm or back. At the time of my evaluation, he is pain free and hemodynamically stable. There are no clear-cut relieving or exacerbating factors. He has had 3 sets of troponins that are negative. His creatinine is 1. Hemoglobin is normal at 13. His EKG shows sinus rhythm with right bundle branch block and nonspecific ST-T wave changes. He had a CT scan of the chest that was negative for pulmonary embolism. He has extensive coronary calcification. He presented with similar symptoms in August of this year and underwent cardiac catheterization by my associate, Dr. Meagan Guillen. His heart catheterization revealed a totally occluded right coronary artery, mid LAD and with very limited flow into the circumflex coronary artery. BENITEZ to LAD was patent. There was no [place] circumflex coronary artery to revascularize. The obtuse marginal graft was occluded. Graft to the PDA was patent. The patient was advised medical therapy and was discharged home. The patient follows with a global marketing operations manager at [facility]. Given his recent cardiac catheterization and advised medical therapy, I am going to continue with medical therapy at this time. The patient is on aspirin, Plavix, Lipitor, Cozaar and Lopressor which I am going to continue and add Imdur 60 mg daily. We will feed him. Stop the IV heparin with IV nitroglycerin that he is on. PAST MEDICAL HISTORY: Significant for coronary artery disease status post CABG, status post multiple prior revascularizations, hypertension, dyslipidemia. MEDICATIONS: Medications at home include: Lopressor 25 b.i.d., Cozaar 50 q. daily, Neurontin, Proscar, Plavix 75 daily, Zyrtec, Lipitor and aspirin. ALLERGIES: He is allergic to SULFA. FAMILY HISTORY: Negative for premature coronary artery disease. SOCIAL HISTORY: Negative for current smoking, EtOH abuse, or drug abuse. REVIEW OF SYSTEMS: HEENT is unremarkable. CARDIAC as described above. RESPIRATORY as described above. GI negative. GENITOURINARY negative. ALLERGY/IMMUNOLOGY: Negative. SKIN negative. MUSCULOSKELETAL significant for arthritis. PSYCHOSOCIAL negative. ENDOCRINE: Negative. DERM: Negative. CONSTITUTIONAL negative. ONCOLOGICAL: Negative. ISOTOPE TECHNOLOGIST negative. Rest of the system review is not relevant. EXAM: Heart rate is 96 beats per minute. Blood pressure is 112/46. Respiratory rate is 18. O2 saturation is 97% on 2 L. NECK: There is no jugular venous distention. Carotid upstroke is diminished. There is no bruit. CHEST exam reveals good air entry bilaterally. HEART exam reveals first and second heart sounds and ejection systolic murmur in the aortic area. ABDOMEN: Soft. Exam of EXTREMITIES did not reveal any edema. Peripheral pulses are felt. LABS: Show a hemoglobin of 13, platelet count is 164. Potassium is 4, creatinine is 1. Tropes are negative. EKGs as described above. CT scan of the chest is negative for pulmonary embolism. ASSESSMENT: 1. Unstable angina, known coronary artery disease, status post coronary artery bypass grafting, status post multiple revascularizations. 2. Hypertension. 3. Dyslipidemia. PLAN: Given the recent heart catheterization, we did not find anything that we could revascularize. The patient is best managed with optimal medical therapy and we will keep him here overnight and ambulate him. Feeling good. He can be discharged home and outpatient followup arranged with his own global marketing operations manager out of town. MMODL / IJN: [id number] /
[2019-12-25] MEDS ORDERED: NIACIN TR 500 MG CAPLET PO SCH (12:00)
[2019-12-25] MEDS ORDERED: LORATADINE 10 MG TAB PO SCH (12:00)
--- NOTE | 2019-12-25 13:27 | P.HPIM ---
History of Present Illness H&P Date: 12/25/19 Chief Complaint: Chest pain This is a 79-year-old gentleman with past medical history of CAD, history of [place], CABG, angina, CVA/TIA, 1999 brain shunt,diabetes mellitus, to gastroesophageal reflux disease, hypertension, sleep apnea, degenerative joint disease with chronic back pain, back surgery, former smoker, former alcohol use and multiple other medical issues presented to the ER with midsternal nonradiating chest pain, not accompanied by shortness of breath or diaphoresis, while driving home from [employer]. Denies any heavy lifting or strenuous work that day. Chest pain not reproducible. Afebrile on admission, T-max 99.6. Currently requiring 2 L nasal cannula O2 to maintain O2 sats in the 90s. Borderline hypotension on admission, currently systolic blood pressure in the low 1 teens. Troponins negative 3. EKG reported normal sinus rhythm, right bundle branch block with ST-T wave changes.Chest x-ray per no acute process. Chest CTA reported negative for PE, prominent coronary calcifications, incidental findings a 6 mm intratracheal filling defect, subcentimeter pulmonary nodules and multifocal 1 cm mediastinal and bilateral hilar lymph nodes-currently no prior CT for comparison. Creatinine 1. Maintained on nitroglycerin drip, Currently denies chest pain. Evaluated by cardiology, heparin drip discontinued with Imdur added to med regimen. Review of Systems ROS Statement: Those systems with pertinent positive or pertinent negative responses have been documented in the HPI. ROS Other: All systems not noted in ROS Statement are negative. Past Medical History Past Medical History: Hyperlipidemia, Hypertension, Myocardial Infarction ([place]) Additional Past Medical History / Comment(s): blood pressure to be kept low for shunt. Last Myocardial Infarction Date:: 1993 History of Any Multi-Drug Resistant Organisms: None Reported Past Surgical History: Back Surgery, Coronary Bypass/CABG, Heart Catheterization With Stent, Orthopedic Surgery, Tonsillectomy Additional Past Surgical History / Comment(s): brain shunt Date of Last Stent Placement:: 2017 Past Psychological History: No Psychological Hx Reported Past Alcohol Use History: None Reported Past Drug Use History: None Reported - Past Family History Father Family Medical History: Diabetes Mellitus, Myocardial Infarction ([place]) Additional Family Medical History / Comment(s): heart attack 86 Mother Additional Family Medical History / Comment(s): of stroke Medications and Allergies Home Medications Medication Instructions Recorded Confirmed Type Aspirin [Adult Low Dose Aspirin EC] 81 mg PO HS 02/02/16 12/24/19 History Finasteride [Proscar] 5 mg PO HS 02/02/16 12/24/19 History Gabapentin [Neurontin] 300 mg PO Q8H 02/02/16 12/24/19 History Niacinamide [Niacin] 1,000 mg PO DAILY@1200 02/02/16 12/24/19 History Nitroglycerin Sl Tabs [Nitrostat] 0.4 mg SUBLINGUAL Q5M PRN 02/02/16 12/24/19 History Omeprazole [PriLOSEC] 20 mg PO DAILY 02/02/16 12/24/19 History Tamsulosin HCl [Flomax] 0.4 mg PO HS 02/02/16 12/24/19 History Cetirizine HCl [Zyrtec] 10 mg PO DAILY@1200 09/12/17 12/24/19 History Clopidogrel [Plavix] 75 mg PO DAILY 09/12/17 12/24/19 History Tolterodine Tartrate [Detrol LA] 4 mg PO AC-SUPPER 09/12/17 12/24/19 History Ubidecarenone [Co Q-10] 100 mg PO HS 09/12/17 12/24/19 History Calcium 500mg/Vit D3 400 Iu 1 tab PO BID 08/20/19 12/24/19 History Cholecalciferol [Vitamin D3] 400 unit PO AC-SUPPER 08/20/19 12/24/19 History Pygeum 25mg &Saw [place] 80mg 2 cap PO AC-SUPPER 08/20/19 12/24/19 History Triamcinolone Acetonide [Nasacort] 2 spray EA NOSTRIL HS 08/20/19 12/24/19 History Atorvastatin [Lipitor] 80 mg PO DAILY #30 tab 08/22/19 12/24/19 Rx Losartan [Cozaar] 50 mg PO DAILY #30 tab 08/22/19 12/24/19 Rx Metoprolol Tartrate [Lopressor] 25 mg PO BID #60 tab 08/22/19 12/24/19 Rx Allergies Allergy/AdvReac Type Severity Reaction Status Date / Time Sulfa (Sulfonamide Allergy Rash/Hives Verified 12/24/19 17:33 Antibiotics) Physical Exam Vitals: Vital Signs Temp Pulse Resp BP Pulse Ox 12/25/19 06:33 96 18 112/47 97 12/25/19 03:00 99.3 F 12/25/19 01:43 99.6 F 12/25/19 01:07 100 16 142/65 95 12/24/19 22:14 127/54 12/24/19 20:21 154/75 12/24/19 18:51 79 16 149/95 95 12/24/19 17:52 57 L 16 152/65 97 12/24/19 17:34 60 16 155/69 97 12/24/19 16:49 59 L 16 110/61 99 12/24/19 16:22 97.4 F L 62 16 95/48 100 Intake and Output 12/24/19 12/25/19 12/25/19 22:59 06:59 14:59 Output Total 100 Balance -100 Output: Urine 100 Other: Weight 74.843 kg PHYSICAL EXAM: VITAL SIGNS: As above GENERAL: Sitting up on stretcher, no acute distress HEENT: Conjunctivae normal. eyes normal. NECK: No JVD. No thyroid enlargement. CARDIOVASCULAR: S1, S2 regular. Systolic murmur RESPIRATION: Breath sounds diminished in the bases. No rhonchi or crackles. No bronchial breathing. ABDOMEN: Soft, nontender . No guarding. no masses palpable. No ascites, No hepatosplenomegaly.Bowel sounds heard. LEGS: No edema. no swelling PSYCHIATRY: Alert and oriented X3, mood and affect normal. NERVOUS SYSTEM: Cranial N 2-12 grossly normal. Moves all 4 limbs. No focal deficits. Strength and sensation grossly intact.. Skin: Warm and dry, no rash Results CBC & Chem 7: 12/25/19 08:37 12/25/19 08:37 Labs: Abnormal Lab Results - Last 24 Hours (Table) 12/24/19 12/24/19 12/25/19 Range/Units 16:48 16:48 08:37 RBC 4.07 L 4.02 L (4.30-5.90) m/uL Hgb 12.8 L (13.0-17.5) gm/dL Monocytes # (Manual) 1.44 H (0-1.0) k/uL Sodium 136 L (137-145) mmol/L BUN 26 H (9-20) mg/dL Glucose 124 H (74-99) mg/dL 12/25/19 Range/Units 08:37 RBC (4.30-5.90) m/uL Hgb (13.0-17.5) gm/dL Monocytes # (Manual) (0-1.0) k/uL Sodium 136 L (137-145) mmol/L BUN 21 H (9-20) mg/dL Glucose (74-99) mg/dL Assessment and Plan Assessment: Acute chest pain, in a patient with significant history of CAD, angina. troponin is negative 3, possible unstable angina. Diabetes mellitus Gastroesophageal reflux disease History of CABG, history of [place] History of CVA, TIA, brain shunt 1998 DJD with chronic back pain, history of back surgery Hypertension Hyperlipidemia History of nicotine dependence History of alcohol use Plan: Continue on current medication regime ,monitoring and symptomatic treatment. Evaluated by cardiology with recommendations noted appreciated. Maximizing medical therapy as patient reported to have had recent heart eunice terization requiring no revascularization. Increased induration as tolerated. Discharge planning in progress for tomorrow, pending radiology's clearance. The impression and plan of care has been dictated as directed. : I performed a history and examination of this patient, discussed the same with the dictator. I agree with the dictator's note ,documented as a scribe. Any additional findings or plans will be noted.
[2019-12-25 13:54] VITALS: BMI 27.4
[2019-12-25] MEDS ORDERED: OXYBUTYNIN 10 MG TAB.ER.24 PO SCH (17:30)
[2019-12-25] MEDS ORDERED: CHOLECALCIFEROL 400 UNIT TAB PO SCH (17:30)
[2019-12-25] MEDS ORDERED: PYGEUM PO SCH (17:30)
[2019-12-25] MEDS ORDERED: INSULIN ASPART (NovoLOG) 100 UNIT/ML VIAL SQ SCH (17:30)
[2019-12-25] MEDS ORDERED: SAW PALMETTO 80 MG PO SCH (17:30)
[2019-12-26 00:14] VITALS: RESP 16
[2019-12-26] MEDS: GABAPENTIN 300 MG CAP PO SCH (05:06)
[2019-12-26 06:09] VITALS: BP 102/56; TEMP 98
[2019-12-26 07:40] LABS: Basophils # (A) 0.1 k/uL (0-0.2); Basophils % (A) 1 %; Eosinophils # (A) 0.8 k/uL (0-0.7); Eosinophils % (A) 8 %; HCT 44.6 % (39.0-53.0); HGB 13.7 gm/dL (13.0-17.5); Lymphocytes # (A) 1.3 k/uL (1.0-4.8); Lymphocytes % (A) 14 %; MCH 31.5 pg (25.0-35.0); MCHC 30.8 g/dL (31.0-37.0); MCV 102.3 fL (80.0-100.0); Macrocytosis Slight; Mean Platelet Volume 7.4; Monocytes # (A) 1.1 k/uL (0-1.0); Monocytes % (A) 12 %; Neutrophils # (A) 6.1 k/uL (1.3-7.7); Neutrophils % (A) 62 %; Platelet Count 163 k/uL (150-450); RBC 4.36 m/uL (4.30-5.90); WBC 9.8 k/uL (3.8-10.6)
[2019-12-26 08:31] LABS: Calcium 8.8 mg/dL (8.4-10.2); Potassium 4.3 mmol/L (3.5-5.1)
--- NOTE | 2019-12-26 08:33 | P.PN ---
Subjective Progress Note Date: 12/26/19 History of present illness: This isan 79-year-old male with past history of coronary artery dise ase status post CABG his troponins were negative and creatinine of 1. Hemoglobin 13. EKG was sinus rhythm with right bundle branch block and nonspecific ST-T wave changes. CAT scan of the chest was negative for pulmonary embolism. He had similar symptoms in August of this year underwent heart cath eterization with Dr. SHERRILL Guillen that revealed a totally occluded right coronary artery, mid LAD and limited flow into the circumflex. BENITEZ to LAD was patent. There was no [place] circumflex coronary artery to revascularize. Obtuse marginal graft was occluded. Graft to the PDA was patent. Patient was advised medical therapy at that time. Patient follows with a section weaver at [facility]. Current plan is to optimize medical therapy. patient was started on Imdur 60 mg daily and will receive his first dose this morning. repeat blood work reveals hemoglobin 13.7.patient denies having any chest pain. He states he's walked in his room but limited due to IV fluids. He has not had any chest pain with ambulation. No lightheadedness or dizziness. No shortness of breath. Physical examination: Gen: This is an 79-year-old male. He is resting in bed and appears to be comfortable and in no acute distress. VS: afebrile, heart rate 67, blood pressure 102/56, pulse ox 95% on room air. HEENT: Head is atraumatic, normocephalic. Pupils equal, round. Sclerae is anicteric. NECK: Supple. No JVD. No lymphadenopathy. LUNGS: Clear to auscultation. No wheezes or rhonchi. No intercostal retractions. HEART: Regular rate and rhythm. systolic ejection murmur. ABDOMEN: Soft. Bowel sounds are present. No masses. No tenderness. EXTREMITIES: No pedal edema. No calf tenderness. NEUROLOGICAL: Patient is awake, alert and oriented x3. Cranial nerves 2 through 12 are grossly intact. Assessment: unstable angina with known coronary artery disease status post CABG and stents hypertension Dyslipidemia Plan: patient ambulate in the hallway and is asymptomatic, cleared for discharge home today continue Imdur 60 mg follow-up with cardiology at [facility] in 1-2 weeks Thank you kindly for this consultation. Nurse practitioner note has been reviewed, I agree with documented findings and plan of care. Patient was seen and examined. Objective - Vital Signs Vital signs: Vital Signs Temp 98.0 F 12/26/19 03:00 Pulse 67 12/26/19 03:00 Resp 16 12/26/19 03:00 BP 102/56 12/26/19 03:00 Pulse Ox 95 12/26/19 03:00 Intake & Output 12/25/19 12/26/19 12/26/19 18:59 06:59 18:59 Intake Total 240 Output Total 300 Balance -60 Weight 74.843 kg Intake: Oral 240 Output: Urine 300 Other: # Voids 1 1 - Labs CBC & Chem 7: 12/26/19 06:31 12/26/19 06:31 Labs: Abnormal Lab Results - Last 24 Hours (Table) 12/25/19 12/25/19 12/26/19 Range/Units 08:37 08:37 06:31 RBC 4.02 L (4.30-5.90) m/uL MCV 102.3 H (80.0-100.0) fL MCHC 30.8 L (31.0-37.0) g/dL Monocytes # 1.1 H (0-1.0) k/uL Eosinophils # 0.8 H (0-0.7) k/uL Sodium 136 L (137-145) mmol/L BUN 21 H (9-20) mg/dL
[2019-12-26] MEDS: ATORVASTATIN 80 MG TAB PO SCH (08:37)
[2019-12-26] MEDS: LOSARTAN 50 MG TAB PO SCH (08:37)
[2019-12-26] MEDS: CALCIUM CARB-VIT D 500MG-200UN 1 EACH TAB PO SCH (08:37)
[2019-12-26] MEDS: METOPROLOL TARTRATE 25 MG TAB PO SCH (08:38)
[2019-12-26] MEDS: CLOPIDOGREL 75 MG TAB PO SCH (08:38)
[2019-12-26] MEDS: PANTOPRAZOLE 40 MG TABLET PO SCH (08:38)
[2019-12-26] MEDS ORDERED: ISOSORBIDE MONONITRATE ER 60 MG TAB.ER.24H PO SCH (09:00)
[2019-12-26 09:33] VITALS: PULSE 70
--- NOTE | 2019-12-26 16:09 | P.DS ---
Providers Date of admission: 12/24/19 19:18 Attending physician: Alfonso Urban Consults: 12/24/19 19:19 Consult Physician Urgent Consulting Provider: [facility] Consult Reason/Comments: acute chest pain, hx ascad Do you want consulting provider notified?: Yes Primary care physician: Alfonso Urban Hospital Course: Patient is admitted for possible unstable angina was evaluated by cardiology patient had history of coronary artery disease and prior PCI and CABG in the past cardiology increase the dose of Imdur . blood pressure is low because of which I'm discontinued and losartan patient doesn't have any history of congestive heart failure. Patient does have pulmonary nodules patient did see Dr. Arabella Guillen pulmonology in the past patient will be referred back to the same assistant women's soccer coach and will be discharged today. PHYSICAL EXAMINATION: GENERAL: The patient is alert and oriented x3, not in any acute distress. Well developed, well nourished. HEENT: Pupils are round and equally reacting to light. EOMI. No scleral icterus. No conjunctival pallor. Normocephalic, atraumatic. No pharyngeal erythema. No thyromegaly. CARDIOVASCULAR: S1 and S2 present. No murmurs, rubs, or gallops. PULMONARY: Chest is clear to auscultation, no wheezing or crackles. ABDOMEN: Soft, nontender, nondistended, normoactive bowel sounds. No palpable organomegaly. MUSCULOSKELETAL: No joint swelling or deformity. EXTREMITIES: No cyanosis, clubbing, or pedal edema. NEUROLOGICAL: Gross neurological examination did not reveal any focal deficits. SKIN: No rashes. For further he days and hospice physician course please refer to history of present from Dr. Alfonso Urban from yesterday Patient Condition at Discharge: Serious Plan - Discharge Summary Discharge Rx Participant: No New Discharge Prescriptions: New Isosorbide Mononitrate ER [Imdur] 60 mg PO DAILY #30 tab.er.24h Continue Niacinamide [Niacin] 1,000 mg PO DAILY@1200 Tamsulosin HCl [Flomax] 0.4 mg PO HS Nitroglycerin Sl Tabs [Nitrostat] 0.4 mg SUBLINGUAL Q5M PRN PRN Reason: Chest Pain Finasteride [Proscar] 5 mg PO HS Omeprazole [PriLOSEC] 20 mg PO DAILY Aspirin [Adult Low Dose Aspirin EC] 81 mg PO HS Gabapentin [Neurontin] 300 mg PO Q8H Ubidecarenone [Co Q-10] 100 mg PO HS Cetirizine HCl [Zyrtec] 10 mg PO DAILY@1200 Tolterodine Tartrate [Detrol LA] 4 mg PO AC-SUPPER Clopidogrel [Plavix] 75 mg PO DAILY Calcium 500mg/Vit D3 400 Iu 1 tab PO BID Pygeum 25mg &Saw [place] 80mg 2 cap PO AC-SUPPER Cholecalciferol [Vitamin D3] 400 unit PO AC-SUPPER Triamcinolone Acetonide [Nasacort] 2 spray EA NOSTRIL HS Atorvastatin [Lipitor] 80 mg PO DAILY #30 tab Metoprolol Tartrate [Lopressor] 25 mg PO BID #60 tab Discontinued Losartan [Cozaar] 50 mg PO DAILY #30 tab Discharge Medication List Aspirin [Adult Low Dose Aspirin EC] 81 mg PO HS 02/02/16 [History] Finasteride [Proscar] 5 mg PO HS 02/02/16 [History] Gabapentin [Neurontin] 300 mg PO Q8H 02/02/16 [History] Niacinamide [Niacin] 1,000 mg PO DAILY@1200 02/02/16 [History] Nitroglycerin Sl Tabs [Nitrostat] 0.4 mg SUBLINGUAL Q5M PRN 02/02/16 [History] Omeprazole [PriLOSEC] 20 mg PO DAILY 02/02/16 [History] Tamsulosin HCl [Flomax] 0.4 mg PO HS 02/02/16 [History] Cetirizine HCl [Zyrtec] 10 mg PO DAILY@1200 09/12/17 [History] Clopidogrel [Plavix] 75 mg PO DAILY 09/12/17 [History] Tolterodine Tartrate [Detrol LA] 4 mg PO AC-SUPPER 09/12/17 [History] Ubidecarenone [Co Q-10] 100 mg PO HS 09/12/17 [History] Calcium 500mg/Vit D3 400 Iu 1 tab PO BID 08/20/19 [History] Cholecalciferol [Vitamin D3] 400 unit PO AC-SUPPER 08/20/19 [History] Pygeum 25mg &Saw [place] 80mg 2 cap PO AC-SUPPER 08/20/19 [History] Triamcinolone Acetonide [Nasacort] 2 spray EA NOSTRIL HS 08/20/19 [History] Atorvastatin [Lipitor] 80 mg PO DAILY #30 tab 08/22/19 [Rx] Metoprolol Tartrate [Lopressor] 25 mg PO BID #60 tab 08/22/19 [Rx] Isosorbide Mononitrate ER [Imdur] 60 mg PO DAILY #30 tab.er.24h 12/26/19 [Rx] Follow up Appointment(s)/Referral(s): Alfonso Urban DO [Primary Care Provider] - 3 Days Chris Guillen MD [STAFF PHYSICIAN] - 1 Week Activity/Diet/Wound Care/Special Instructions: follow-up with hardware engineering manager at [facility]. Discharge Disposition: HOME SELF-CARE
== END 2019-12-26 11:53 | disposition home or self-care (01) ==
LOC: EC 16:22 → 3SCARD 19:18 → 3NCARDOBS 12-25 13:10
PROVIDERS: ADMIT Family Medicine; ATTEND Family Medicine
DX: I25.110 Atherosclerotic heart disease of native coronary artery with unstable angina pectoris (principal); E11.9 Type 2 diabetes mellitus without complications; E78.5 Hyperlipidemia, unspecified; G89.29 Other chronic pain; I10 Essential (primary) hypertension; I25.2 Old myocardial infarction; R91.8 Other nonspecific abnormal finding of lung field; I25.82 Chronic total occlusion of coronary artery; I45.10 Unspecified right bundle-branch block; K21.9 Gastro-esophageal reflux disease without esophagitis; M19.90 Unspecified osteoarthritis, unspecified site; Z79.02 Long term (current) use of antithrombotics/antiplatelets; Z79.82 Long term (current) use of aspirin; Z79.899 Other long term (current) drug therapy; Z82.3 Family history of stroke; Z86.73 Personal history of transient ischemic attack (TIA), and cerebral infarction without residual deficits; Z87.891 Personal history of nicotine dependence; Z95.1 Presence of aortocoronary bypass graft; Z98.61 Coronary angioplasty status
CPT/HCPCS: 93005 ×2; 96366 ×2; 96365; 96375; 99285; 36415; 83880; 80053; 80048 ×2; 82553; 83735; 84484 ×2; 85025 ×3; 85610; 85730; 71046; 71275; G0378 ×4; S0138; J2270; C9113; Q9967

== ENCOUNTER 2020-02-22 05:34 | Observation (INO) | payer MEDICARE, BC ==
[2020-02-22 06:22] LABS: Basophils # (A) 0.1 k/uL (0-0.2); Basophils % (A) 1 %; Eosinophils # (A) 0.7 k/uL (0-0.7); Eosinophils % (A) 7 %; HCT 41.6 % (39.0-53.0); HGB 13.9 gm/dL (13.0-17.5); Lymphocytes # (A) 1.8 k/uL (1.0-4.8); Lymphocytes % (A) 18 %; MCH 32.1 pg (25.0-35.0); MCHC 33.4 g/dL (31.0-37.0); Monocytes % (A) 10 %; Neutrophils # (A) 6.2 k/uL (1.3-7.7); Neutrophils % (A) 62 %; Platelet Count 181 k/uL (150-450); RBC 4.34 m/uL (4.30-5.90); RDW 12.2 % (11.5-15.5)
[2020-02-22] MEDS ORDERED: MORPHINE SULFATE 2 MG/ML SYRINGE IVP STA (06:29)
[2020-02-22 06:32] LABS: MCV 95.9 fL (80.0-100.0)
[2020-02-22 06:33] LABS: ALT 35 U/L (4-49); AST 32 U/L (17-59); African American GFR (CKD) >90 (>60 ml/min/1.73 sqM); Albumin 3.7 g/dL (3.5-5.0); Alkaline Phosphatase 51 U/L (38-126); Anion Gap 3 mmol/L; Blood Urea Nitrogen 21 mg/dL (9-20); Carbon Dioxide 27 mmol/L (22-30); Chloride 109 mmol/L (98-107); Glucose 114 mg/dL (74-99); Magnesium 1.9 mg/dL (1.6-2.3); Non-African American GFR(CKD) 78 (>60 ml/min/1.73 sqM); Potassium 3.8 mmol/L (3.5-5.1); Sodium 139 mmol/L (137-145); Total Bilirubin 0.7 mg/dL (0.2-1.3)
[2020-02-22 06:37] LABS: Partial Thromboplastin Time 22.5 sec (22.0-30.0); Prothrombin Time 10.5 sec (9.0-12.0)
--- NOTE | 2020-02-22 06:45 | XR ---
EXAM: XR Chest, 1 View CLINICAL HISTORY: ITS.REASON XR Reason: chest pain TECHNIQUE: Frontal view of the chest. COMPARISON: 12/24/2019 FINDINGS: Lungs: Unremarkable. No consolidation. Pleural space: No pleural effusions. No pneumothorax. Heart: Unremarkable. No cardiomegaly. Mediastinum: Median sternotomy wires in place. Aortic arch calcifications. Bones/joints: Unremarkable. IMPRESSION: No acute pulmonary process.
--- NOTE | 2020-02-22 07:08 | ED ---
Chest Pain HPI - General Source: patient, EMS Mode of arrival: EMS Limitations: no limitations <Jane Jara - Last Filed: 02/22/20 10:35> <Susan Conti - Last Filed: 02/25/20 00:43> - General Chief Complaint: Chest Pain Stated Complaint: Chest pain Time Seen by Provider: 02/22/20 06:04 - History of Present Illness Initial Comments: 79yo male hx of CAD with stent, angina-on plavix, HTN, HLD and brain stent. Patient states that he has had chest pain since last night he states it is burning in the lower chest/upper abdomen, at times pressure like. pt dnies jaw, arm pain or back pain. denies URI symptoms, cough, fevers. Admits to right calf pain. Denies pain with deep inspiration or hemoptysis. Denies history of DVT/PE. Pt on plavix states he is compliant. pt states he recently had an episode of "angina" when he came to the ER. Pt states he took total of 3 nitroglycerin prior to arrival, aspirin. he states it didnt seem to help very much. patient denies nause, vomiting, diarrhea. denies lwoer abdominal pain, denies headache. (Jane Jara) - Related Data Home Medications Medication Instructions Recorded Confirmed Aspirin [Adult Low Dose Aspirin EC] 81 mg PO HS 02/02/16 02/22/20 Finasteride [Proscar] 5 mg PO HS 02/02/16 02/22/20 Gabapentin [Neurontin] 300 - 600 mg PO Q8H 02/02/16 02/22/20 Niacinamide [Niacin] 1,000 mg PO DAILY@1200 02/02/16 02/22/20 Nitroglycerin Sl Tabs [Nitrostat] 0.4 mg SUBLINGUAL Q5M PRN 02/02/16 02/22/20 Omeprazole [PriLOSEC] 20 mg PO DAILY 02/02/16 02/22/20 Tamsulosin HCl [Flomax] 0.4 mg PO HS 02/02/16 02/22/20 Cetirizine HCl [Zyrtec] 10 mg PO DAILY@1200 09/12/17 02/22/20 Tolterodine Tartrate [Detrol LA] 4 mg PO AC-SUPPER 09/12/17 02/22/20 Ubidecarenone [Co Q-10] 100 mg PO HS 09/12/17 02/22/20 Calcium 500mg/Vit D3 400 Iu 1 tab PO BID 08/20/19 02/22/20 Cholecalciferol [Vitamin D3] 400 unit PO AC-SUPPER 08/20/19 02/22/20 Pygeum 25mg &Saw [place] 80mg 2 cap PO AC-SUPPER 08/20/19 02/22/20 Triamcinolone Acetonide [Nasacort] 2 spray EA NOSTRIL HS 08/20/19 02/22/20 Metoprolol Tartrate [Lopressor] 25 mg PO BID-W/MEALS 02/22/20 02/22/20 Previous Rx's Medication Instructions Recorded Atorvastatin [Lipitor] 80 mg PO DAILY #30 tab 08/22/19 Isosorbide Mononitrate ER [Imdur] 60 mg PO DAILY #30 tab.er.24h 12/26/19 amLODIPine [Norvasc] 5 mg PO DAILY #30 tab 02/23/20 Allergies Allergy/AdvReac Type Severity Reaction Status Date / Time Sulfa (Sulfonamide Allergy Rash/Hives Verified 02/22/20 08:18 Antibiotics) Review of Systems ROS Other: All systems not noted in ROS Statement are negative. <Jane Jara - Last Filed: 02/22/20 10:35> ROS Other: All systems not noted in ROS Statement are negative. <Susan Conti - Last Filed: 02/25/20 00:43> ROS Statement: Those systems with pertinent positive or pertinent negative responses have been documented in the HPI. Past Medical History Past Medical History: Hyperlipidemia, Hypertension, Myocardial Infarction ([place]) Additional Past Medical History / Comment(s): blood pressure to be kept low for shunt. Last Myocardial Infarction Date:: 1993 History of Any Multi-Drug Resistant Organisms: None Reported Date of last positivie culture/infection: 2009 MDRO Source:: L elbow Past Surgical History: Back Surgery, Coronary Bypass/CABG, Heart Catheterization With Stent, Orthopedic Surgery, Tonsillectomy Additional Past Surgical History / Comment(s): brain shunt Past Anesthesia/Blood Transfusion Reactions: No Reported Reaction, Motion Sickness Additional Past Anesthesia/Blood Transfusion Reaction / Comment(s): Pt has clausterphobia. Date of Last Stent Placement:: 2017 Past Psychological History: No Psychological Hx Reported Past Alcohol Use History: None Reported Past Drug Use History: None Reported - Past Family History Father Family Medical History: Diabetes Mellitus, Myocardial Infarction ([place]) Additional Family Medical History / Comment(s): heart attack 86 Mother Family Medical History: CVA/TIA Additional Family Medical History / Comment(s): of stroke <Jane Jara - Last Filed: 02/22/20 10:35> General Exam Limitations: no limitations <Jane Jara - Last Filed: 02/22/20 10:35> - General Exam Comments Initial Comments: General: The patient is awake and alert, in no distress Eye: Pupils are equal, round and reactive to light, extra-ocular movements are intact. No nystagmus. There is normal conjunctiva bilaterally. No signs of icterus. Ears, nose, mouth and throat: There are moist mucous membranes and no oral lesions. Neck: The neck is supple, there is no tenderness or JVD. Cardiovascular: There is a regular rate and rhythm. No murmur, rub or gallop is appreciated. Respiratory: Lungs are clear to auscultation, respirations are non-labored, breath sounds are equal. No wheezes, stridor, rales, or rhonchi. Gastrointestinal: Soft, non-distended, epigastric tenderness to palpation of t he abdomen, abdomen without masses or organomegaly noted. There is no rebound or guarding present. Musculoskeletal: Normal ROM, no tenderness. Strength 5/5. Sensation intact. Radial pulses equal bilaterally 2+. Neurological: A&O x 3. CN II-XII intact, There are no obvious motor or sensory deficits. Coordination appears grossly intact. Speech is normal. Skin: Skin is warm and dry and no rashes or lesions are noted. Psychiatric: Cooperative, appropriate mood & affect, normal judgment. (Jane Jara) Course Vital Signs 02/22/20 02/22/20 02/22/20 05:35 07:58 09:48 Temperature 97.8 F Pulse Rate 71 73 82 Respiratory 18 18 18 Rate Blood Pressure 164/73 171/67 171/74 O2 Sat by Pulse 96 96 98 Oximetry 02/22/20 10:42 Temperature Pulse Rate 75 Respiratory 18 Rate Blood Pressure 174/69 O2 Sat by Pulse 99 Oximetry Chest Pain MDM <Jane Jara - Last Filed: 02/22/20 10:35> <Susan Conti - Last Filed: 02/25/20 00:43> - [facility] 79yo male presenting for cc of lower chest pain. hx of CAD/[place]. Patient has history of angina as well. on exam there is some pain to the epigastric region- pt winces. GB thickening no secondary signs of acute cholecystitis. no relief after 3 nitroglycerin, aspirin, morphine x 2, low intensity heparin cancelled because of patient history of ruptured cerebral aneurysm. initial troponin (-). Patient will be admitted for serial troponin and monitoring. pt pain improving on admission. cardiology on consult. pt CT obtained due to fall without evaluation in December. NO obvious process. but claude hole noted. pt questioned and it was noted he has previous intracranial hemorrhage. (Jane Jara) I was available for consultation in the emergency department. The history and physical exam were done by the midlevel provider. I was consulted for this patients care. I reviewed the case with the midlevel provider and based on thei r presentation of the patient, I agree with the assessment, medical decision making and plan of care as documented. Chart was dictated using [employer] dictation software. Attempts were made to correct any dictation errors however some typographical errors may persist. Patient was seen during a national state of emergency due to the Covid-19 pandemic. (Susan Conti) Disposition Is patient prescribed a controlled substance at d/c from ED?: No Time of Disposition: 08:42 Decision to Admit Reason: Admit from EC Decision Date: 02/22/20 Decision Time: 08:43 <Jane Jara - Last Filed: 02/22/20 10:35> <Susan Conti - Last Filed: 02/25/20 00:43> Clinical Impression: Chest discomfort, Abdominal pain Disposition: ADMITTED IP TO THIS HOSP Condition: Stable
--- NOTE | 2020-02-22 07:26 | US ---
EXAMINATION TYPE: US venous doppler duplex LE RT DATE OF EXAM: 02/22/2020 7:16 AM COMPARISON: NONE CLINICAL HISTORY: 79-year-old male pain right leg. On/off right leg pain and swelling x couple weeks, patient on blood thinners SIDE PERFORMED: Right TECHNIQUE: The lower extremity deep venous system is examined utilizing real time linear array sonog diana with graded compression, doppler sonography and color-flow sonography. FINDINGS: VESSELS IMAGED: Common Femoral Vein Deep Femoral Vein Greater Saphenous Vein * Femoral Vein Popliteal Vein Small Saphenous Vein * Proximal Calf Veins (* superficial vessels) Right Leg: Appears negative for DVT IMPRESSION: No evidence for DVT within the right lower extremity imaged from the groin to the upper calf.
[2020-02-22] MEDS ORDERED: ONDANSETRON 4 MG/2 ML VIAL IVP STA (08:04)
[2020-02-22] MEDS ORDERED: NITROGLYCERIN OINT 1 INCH/GM PACKET TOPICAL STA (08:05)
[2020-02-22] MEDS ORDERED: MORPHINE SULFATE 4 MG/ML SYRINGE IVP STA (08:05)
--- NOTE | 2020-02-22 08:16 | CT ---
EXAMINATION TYPE: CT abdomen pelvis w con DATE OF EXAM: 02/22/2020 COMPARISON: None. HISTORY: Chest pain, epigastric pain CT DLP: 1113 (CTA chest and abd pelvis) mGycm, Automated Exposure Control for Dose Reduction was Util ized. CONTRAST: CT scan of the abdomen and pelvis is performed without oral but with IV Contrast, patient injected wi th 100 mL of Isovue 370. FINDINGS: LUNG BASES: Overlying sternal wires partially imaged. Right greater than left dependent atelectasis. LIVER/GB: Gallbladder is distended margins without surrounding inflammatory change. Visualized liver is heterogeneously hypodense with trace adjacent ascites. Correlate for underlying hepatocellular dis ease. PANCREAS: No significant abnormality is seen. SPLEEN: No significant abnormality is seen. ADRENALS: No significant abnormality is seen. KIDNEYS: Simple appearing 1.5 cm thin-walled cyst medially lower pole of right kidney. Symmetric tolu ical medullary uptake and excretion without concerning renal mass or hydronephrosis seen bilaterally BOWEL: Suboptimal evaluation without enteric contrast. No suspicious small or large bowel dilatation. Stomach poorly distended and thus suboptimally evaluated. PROSTATE/SEMINAL VESICLES: Central calcification. Adjacent calcified pelvic phlebolith LYMPH NODES: No greater than 1cm abdominal or pelvic lymph nodes are appreciated. OSSEOUS STRUCTURES: Moderate to severe multilevel spurring in the visualized spine. Multilevel mild-t o-moderate disc space narrowing and vacuum disc phenomenon. Vertebroplasty performed at T12 level wit h mild height loss extending into T12-L1 disc space. Facet arthropathy lower lumbar levels. OTHER: Right-sided percutaneous peritoneal dialysis catheter terminates in the pelvis with small amou nt of free fluid. Moderate to severe calcified plaque of the aorta extends into iliac branch vessels IMPRESSION: Gallbladder has distended margins without additional secondary CT evidence for acute chol ecystitis. Possible underlying hepatocellular disease or mild diffuse fatty infiltration. Small amoun t of pelvic ascites presumed related to peritoneal dialysis catheter. No bowel obstruction. No acute findings clearly identified.
--- NOTE | 2020-02-22 08:28 | CT ---
EXAMINATION TYPE: CT chest angio for PE DATE OF EXAM: 02/22/2020 COMPARISON: CTA chest and chest x-ray December 24, 2019. Chest x-ray earlier today. HISTORY: Chest pain, epigastric pain CT DLP: 1113 (CTA chest and abd pelvis) mGycm Automated exposure control for dose reduction was used. CONTRAST: CT Chest for pulmonary embolism performed with with IV Contrast, patient injected with 100 mL of Isov ue 370. FINDINGS: LUNGS: Stable 16 x 6 mm scarlike opacity right upper lung axial image 22 for reference.. Stable 15 x 10 mm scarlike opacity posterior right upper lobe axial image 62 abutting the major fissure. Dependen t atelectasis in both lower lobes. Some small scattered nodules particularly in the right lower lobe redemonstrated for reference 6 mm right basilar nodule axial image 95 and 4 to 5 mm mm anterolateral right mid lung nodular axial image 80. No new consolidation. No pleural effusion or pneumothorax seen bilaterally. Occasional scattered blebs or thin-walled cyst. Prior visualized tracheal lesion is not seen. MEDIASTINUM: There is satisfactory enhancement of the pulmonary artery and its branches, there is no CT evidence for pulmonary embolism. Enlarged bilateral hilar lymph nodes redemonstrated. Enlarged tho racic lymph nodes involving the prevascular space, AP window, paratracheal region, subcarinal region all redemonstrated. Severe [place] coronary artery calcifications are post-CABG changes are present. No cardiomegaly or pericardial effusion is seen. OTHER: S-shaped scoliosis with multilevel spurring in the spine. Smaller degree of subareolar gyneco mastia bilaterally redemonstrated. IMPRESSION: 1. No CTA evidence for acute pulmonary embolism. 2. Chronic changes without new suspicious acute pulmonary process. Persistent scattered small nodules and more prominent thoracic adenopathy that warrants follow-up.
[2020-02-22] MEDS ORDERED: PIPERACILLIN-TAZOBACTAM 3.375 GM in SODIUM CHLORIDE 0.9% 100 ML IVPB STA (08:38)
[2020-02-22] MEDS ORDERED: NITROGLYCERIN SL TABS 0.4 MG TAB SUBLINGUAL PRN ×2 (08:47→11:12)
[2020-02-22] MEDS ORDERED: HEPARIN SODIUM,PORCINE 5,000 UNIT/ML 1 ML VIAL IV PRN (09:19)
[2020-02-22] MEDS ORDERED: HEPARIN SOD,PORK IN 0.45% NACL 25,000 UNIT in 0.45% NACL 1 250ML.BAG IV SCH (09:30)
[2020-02-22] MEDS: HEPARIN SODIUM,PORCINE 5,000 UNIT/ML 1 ML VIAL IV ONE ×2 (09:44→10:39)
--- NOTE | 2020-02-22 09:54 | US ---
EXAMINATION TYPE: US abdomen limited DATE OF EXAM: 02/22/2020 COMPARISON: NONE CLINICAL HISTORY: 79-year-old male epigastric Pain TECHNIQUE: Multiple sonographic images of the right upper quadrant are obtained. FINDINGS: EXAM MEASUREMENTS: Liver Length: 17 cm Gallbladder Wall: .4 cm CBD: .5 cm Right Kidney: 9.0 x 4.2 x 3.9 cm Pancreas: Obscured by bowel gas, suboptimally visualized Liver: Limited due to rib shadowing, no gross abnormality of the visualized portions. Gallbladder: Hydropic measuring 4.0 cm wide. No stones seen though the wall is thickened. Evidence for sonographic Mosley's sign: No CBD: wnl Right Kidney: wnl IMPRESSION: 1. Mildly hydropic gallbladder with mild wall thickening. No gallstones or sonographic Mosley sign. F indings may reflect chronic cholecystitis. If pain medication was given 4 there is concern for early acute cholecystitis, consider HIDA scan. 2. No biliary ductal dilatation.
--- NOTE | 2020-02-22 10:23 | CT ---
EXAMINATION TYPE: CT brain w con DATE OF EXAM: 02/22/2020 COMPARISON: None HISTORY: 79-year-old male patient on heparin, pain after Fall on 12/21/19. CT DLP: 1070.4 mGycm Automated exposure control for dose reduction was used. TECHNIQUE: CT scan of the head is performed with IV Contrast administered 2 hours prior for a PE CT o f the chest, patient injected with 100 mL of Isovue 370. Coronal and sagittal reconstructions perform ed. FINDINGS: There is some residual intracranial contrast bilaterally limiting assessment. There is enhancement of the dural venous sinuses and vasculature. Dense prostatic calcifications within the carotid siphons. Moderate patchy and confluent white matter hypodensities in both cerebral hemispheres. Old claude hole within the right frontal calvarium and some underlying encephalomalacia in the anterior right frontal lobe. Allowing for the residual intracranial contrast, no convincing evidence for acute intracranial hemorr ida, acute ischemic change, mass, mass effect, midline shift, or extra-axial fluid collection. No hy drocephalus. No effacement of cerebral sulci or basal subarachnoid cisterns. Antonio-white matter differentiation is maintained. Right posterior parietal approach [employer] shunt catheter tip is within the anterior body of the left later al ventricle. Trace air-fluid level within the left maxillary sinus. Scattered trace mucosal thickening ethmoid air cells. Mastoid air cells show minimal fluid inferiorly on both sides. Globes are intact. IMPRESSION: 1. Some residual intracranial contrast remains from the PE CT of the chest performed earlier today. A llowing for this limitation, no definite acute intracranial abnormality is seen. 2. Moderate burden of chronic small vessel ischemic disease. Old right frontal claude hole with underly ing small area of encephalomalacia. 3. Small air-fluid level within the left maxillary sinus. Correlate for any symptoms of acute sinusit is. 4. Additionally, there is minimal fluid within the inferior mastoid air cells on both sides. Correlat e for any mastoid pain to exclude mastoiditis.
[2020-02-22] MEDS ORDERED: PANTOPRAZOLE 40 MG TABLET PO SCH (11:15)
[2020-02-22] MEDS: HYDROmorphone 0.5 MG/0.5 ML SYRINGE IVP PRN ×2 (11:17→16:00)
[2020-02-22] MEDS ORDERED: ISOSORBIDE MONONITRATE ER 60 MG TAB.ER.24H PO STA (11:40)
[2020-02-22] MEDS ORDERED: METOPROLOL TARTRATE 25 MG TAB PO STA (11:41)
[2020-02-22] MEDS ORDERED: amLODIPine 10 MG TAB PO SCH (11:42)
[2020-02-22] MEDS: GABAPENTIN 300 MG CAP PO SCH ×3 (11:59→23:29)
[2020-02-22] MEDS ORDERED: LORATADINE 10 MG TAB PO SCH (12:00)
[2020-02-22] MEDS ORDERED: NIACIN TR 500 MG CAPLET PO SCH (12:00)
--- NOTE | 2020-02-22 12:28 | CONS ---
MASOOD Randall is an 79-year-old gentleman with history of known coronary artery disease, status post CABG, who presented to hospital complaining of chest pain. He describes it as chest tightness that is mild intensity in the precordial area and also extends to the abdomen. It is not associated with diaphoresis, who is unrelated to exertion. At the time of my evaluation, his chest pain has improved significantly. His EKG revealed sinus rhythm with right bundle branch block and nonspecific ST-T wave changes. Cardiac enzymes showed that 2 sets of troponins are negative. Hemoglobin is 13.9, creatinine is 0.98. He has known coronary artery disease and underwent cardiac catheterization in August that revealed a totally occluded right coronary artery and mid LAD with very limited flow into the circumflex coronary artery. BENITEZ to LAD was patent. [place] circumflex coronary artery could not be revascularized. Graft to the OM was occluded. Graft to the PDA was patent. The patient was advised medical therapy by Dr. Guillen, who did the angiogram. The patient has extensive peripheral vascular disease. He follows with a stretcher drier operator at . PAST MEDICAL HISTORY: Significant for CAD, status post CABG, status post multiple prior revascularizations, hypertension, dyslipidemia. MEDICATIONS: Current medications include Lopressor 25 b.i.d., Imdur 60 daily, Proscar, Plavix 75 daily, Lipitor, aspirin, Zyrtec. ALLERGIES: Allergic to SULFA. FAMILY HISTORY: Negative for premature coronary artery disease. SOCIAL HISTORY: Negative for smoking, EtOH abuse or drug abuse. REVIEW OF SYSTEMS: HEENT is unremarkable. CARDIAC: As described above. RESPIRATORY: Negative. GI: Negative. GENITOURINARY: Negative. ALLERGY/IMMUNOLOGY: Negative. Negative. SKIN: Negative. MUSCULOSKELETAL: Significant for arthritis. PSYCHOSOCIAL: Negative. ENDOCRINE: Negative. DERM: Negative. CONSTITUTIONAL: Negative. ONCOLOGICAL: Negative. WARP HAULER: Negative. Rest of the system review is not relevant. PHYSICAL EXAMINATION: On exam, comfortable at rest. Heart rate is 75 beats per minute, blood pressure is 174/69, respiratory rate is 18. There is no jugular venous distention. Carotid upstroke is normal. There is no bruit. Chest exam reveals good air entry bilaterally. Heart exam reveals first and second heart sounds and ejection systolic murmur in the aortic area. Abdomen is soft. Exam of extremities did not reveal any edema. Peripheral pulses are felt. LABS: Labs show that the hemoglobin is 13.9. D-dimer is elevated at 1.9. Creatinine is 0.9. Two sets of troponins are negative. CT scan of the chest is negative for pulmonary embolism. An abdominal ultrasound has been done and it is negative for any gallstones. ASSESSMENT: 1. Precordial chest pain. 2. Coronary artery disease, status post bypass with multiple prior interventions. 3. Uncontrolled hypertension. PLAN: I am going to treat this patient with optimal medical therapy given the recent cardiac catheterization in August. I do not see the need to repeat a heart catheterization on him at this time. Will ambulate him and if he is pain free, I will consider letting him go home tomorrow and follow up with his own stretcher drier operator. Will better control his blood pressure with amlodipine 10 mg daily. If necessary, we will add an JOI inhibitor. OSORIO / EMILYN: [id number] /
--- NOTE | 2020-02-22 16:28 | ECHOF ---
Referral Reason:chest pain, LV function MEASUREMENTS -------- HEIGHT: 162.6 cm WEIGHT: 73.5 kg BP: IVSd: 0.9 cm (0.6 - 1.1) LVIDd: 3.5 cm (3.9 - 5.3) LVPWd: 1.2 cm (0.6 - 1.1) IVSs: 1.5 cm LVIDs: 1.8 cm LVPWs: 1.5 cm Ao Diam: 3.4 cm (2.0 - 3.7) AV Cusp: 1.5 cm (1.5 - 2.6) LA Diam: 3.0 cm (2.7 - 3.8) MV EXCURSION: 23.928 mm (> 18.000) MV EF SLOPE: 130 mm/s (70 - 150) EPSS: 0.6 cm MV E Al: 0.99 m/s MV DecT: 234 ms MV A Al: 1.17 m/s MV E/A Ratio: 0.84 RAP: 5.00 mmHg RVSP: 19.93 mmHg FINDINGS -------- This was a technically difficult study with suboptimal views. The left ventricular size is normal. There is mild concentric left ventricular hypertrophy. Overa ll left ventricular systolic function is normal with, an EF between 55 - 60 %. The right ventricle is normal in size. The left atrial size is normal. The right atrial size is normal. 5.0mg of Lumason was utilized for enhancement of images The aortic valve is trileaflet and appears structurally normal. The mitral valve is normal. There is trace mitral regurgitation. The tricuspid valve appears structurally normal. Mild tricuspid regurgitation present. Right vent ricular systolic pressure is normal at < 35 mmHg. There is no pulmonic regurgitation present. The aortic root size is normal. IVC Not well visulized. There is no pericardial effusion. CONCLUSIONS -------- 1. This was a technically difficult study with suboptimal views. 2. The left ventricular size is normal. 3. There is mild concentric left ventricular hypertrophy. 4. Overall left ventricular systolic function is normal with, an EF between 55 - 60 %. 5. There is trace mitral regurgitation. 6. Mild tricuspid regurgitation present. 7. There is no pericardial effusion. HORTICULTURE WORKER: Marbella Tsang RDCS
[2020-02-22] MEDS: METOPROLOL TARTRATE 25 MG TAB PO SCH (16:51)
[2020-02-22] MEDS ORDERED: CHOLECALCIFEROL 400 UNIT TAB PO SCH (17:30)
[2020-02-22] MEDS ORDERED: OXYBUTYNIN XL 5 MG TAB.ER.24 PO SCH (17:30)
[2020-02-22] MEDS: PANTOPRAZOLE 40 MG/10 ML VIAL IVP SCH (17:36)
[2020-02-22] MEDS: CALCIUM CARB-VIT D 500MG-200UN 1 EACH TAB PO SCH (20:35)
[2020-02-22] MEDS ORDERED: FINASTERIDE 5 MG TAB PO SCH (21:00)
[2020-02-22] MEDS ORDERED: FLUTICASONE 50MCG/SPRAY NASAL 16GM EA NOSTRIL SCH (21:00)
[2020-02-22] MEDS ORDERED: NON FORMULARY DRUG (Ubidecarenone [Co Q-10] 300 MG Capsule) PO SCH (21:00)
[2020-02-22] MEDS ORDERED: ASPIRIN 81 MG PO SCH (21:00)
[2020-02-22] MEDS ORDERED: CLOPIDOGREL 75 MG TAB PO SCH (21:00)
[2020-02-22] MEDS ORDERED: TAMSULOSIN 0.4 MG CAP.ER.24H PO SCH (21:00)
[2020-02-23 03:12] LABS: Cholesterol 100 mg/dL (<200); HDL Cholesterol 37 mg/dL (40-60); LDL Cholesterol,Calculated 46 mg/dL (0-99); Triglycerides 85 mg/dL (<150)
[2020-02-23] MEDS: METOPROLOL TARTRATE 25 MG TAB PO SCH (06:27)
[2020-02-23] MEDS: GABAPENTIN 300 MG CAP PO SCH (08:24)
[2020-02-23] MEDS: CALCIUM CARB-VIT D 500MG-200UN 1 EACH TAB PO SCH (08:24)
[2020-02-23] MEDS: PANTOPRAZOLE 40 MG/10 ML VIAL IVP SCH (08:24)
[2020-02-23 08:46] VITALS: BP 105/51; PULSE 75; RESP 16; TEMP 98.7
[2020-02-23] MEDS ORDERED: ISOSORBIDE MONONITRATE ER 60 MG TAB.ER.24H PO SCH (09:00)
[2020-02-23] MEDS ORDERED: amLODIPine 10 MG TAB PO SCH (09:00)
[2020-02-23] MEDS ORDERED: ATORVASTATIN 80 MG TAB PO SCH (09:00)
[2020-02-23] MEDS ORDERED: ASPIRIN 325 MG TAB PO SCH (09:00)
--- NOTE | 2020-02-23 10:46 | P.PN ---
Subjective Progress Note Date: 02/23/20 CHIEF COMPLAINT: Chest pain HISTORY OF PRESENT ILLNESS: Patient examined this morning at the bedside. He denies chest pain or pressure. Denies shortness of breath. He states he has been out of bed and ambulating. Echocardiogram completed revealing ejection fraction 55-60%, trace mitral regurgitation, and mild tricuspid regurgitation. PHYSICAL EXAM: VITAL SIGNS: Reviewed. GENERAL: Well-developed in no acute distress. NECK: Supple. No JVD or thyromegaly LUNGS: Respirations even and unlabored. Lungs essentially clear to auscultation bilaterally. HEART: Regular rate and rhythm. S1 and S2 heard. EXTREMITIES: Normal range of motion. No clubbing or cyanosis. Peripheral pulses intact. No lower extremity edema ASSESSMENT: Precordial chest pain, resolved Coronary artery disease with previous CABG and multiple prior interventions Hypertension PLAN: Continue current cardiac medications Patient is stable for discharge from a cardiac standpoint. 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 Nurse practitioner note has been reviewed by physician. Signing provider agrees with the documented findings, assessment, and plan of care. Objective - Vital Signs Vital signs: Vital Signs Temp 98.7 F 02/23/20 08:44 Pulse 75 02/23/20 08:44 Resp 16 02/23/20 08:44 BP 105/51 02/23/20 08:44 Pulse Ox 96 02/23/20 08:44 Intake & Output 02/22/20 02/23/20 02/23/20 18:59 06:59 18:59 Intake Total 400 126 Balance 400 126 Weight 73.482 kg Intake: Oral 400 126 Other: Voiding Method Toilet Toilet # Voids 2 1 1 - Labs CBC & Chem 7: 02/22/20 06:08 02/22/20 06:08 Labs: Abnormal Lab Results - Last 24 Hours (Table) 02/22/20 Range/Units 06:08 HDL Cholesterol 37 L (40-60) mg/dL
--- NOTE | 2020-02-23 11:05 | P.GSCN ---
History of Present Illness Consult date: 02/22/20 History of present illness: 79-year-old male presents to the emergency department with complaints of chest pain and epigastric pain that began suddenly and he described as pressure-like. He states that he had a similar episode as this approximately 2 months ago. He does have a chronic history of multiple cardiac issues including coronary artery disease with stent placement and previous CABG history. He has also on anticoagulation with Plavix and aspirin along with hypertension medication and beta blockade. He also is complaining of some acid reflux. He denies any vomiting episodes with states that he has had some nausea. He states that after receiving pain medication, his pain has improved. He has been evaluated by cardiology and echo was performed. He states he is compliant with his medications. Concern of the upper abdominal pain led to workup with CT of the abdomen and pelvis along with abdominal ultrasound. These imaging studies revealed a hydropic gallbladder with concern for chronic cholecystitis. There were no evidence of cholelithiasis. Patient denies any fevers, chills, shortness of breath. Review of Systems All systems: negative Past Medical History Past Medical History: Coronary Artery Disease (CAD), Hyperlipidemia, Hypertension, Myocardial Infarction (OR) Additional Past Medical History / Comment(s): blood pressure to be kept low for shunt. Last Myocardial Infarction Date:: 1993 History of Any Multi-Drug Resistant Organisms: None Reported Year Discovered:: 2009 MDRO Source:: Robert zamudio Past Surgical History: Back Surgery, Coronary Bypass/CABG, Heart Catheterization With Stent, Orthopedic Surgery, Tonsillectomy Additional Past Surgical History / Comment(s): brain shunt Past Anesthesia/Blood Transfusion Reactions: No Reported Reaction, Motion Sickness Additional Past Anesthesia/Blood Transfusion Reaction / Comm: Pt has clausterphobia. Date of Last Stent Placement:: 2017 Past Psychological History: No Psychological Hx Reported Additional Psychological History / Comment(s): Pt resides with his spouse. He is independent. Smoking Status: Former smoker Past Alcohol Use History: None Reported Additional Past Alcohol Use History / Comment(s): Pt started smoking in 5 and quit in 1994. He states he has hx of heavier drinking but quit years ago. Past Drug Use History: None Reported - Past Family History Father Family Medical History: Diabetes Mellitus, Myocardial Infarction (OR) Additional Family Medical History / Comment(s): heart attack 86 Mother Family Medical History: CVA/TIA Additional Family Medical History / Comment(s): of stroke Medications and Allergies Home Medications Medication Instructions Recorded Confirmed Type Aspirin [Adult Low Dose Aspirin EC] 81 mg PO HS 02/02/16 02/22/20 History Finasteride [Proscar] 5 mg PO HS 02/02/16 02/22/20 History Gabapentin [Neurontin] 300 - 600 mg PO Q8H 02/02/16 02/22/20 History Niacinamide [Niacin] 1,000 mg PO DAILY@1200 02/02/16 02/22/20 History Nitroglycerin Sl Tabs [Nitrostat] 0.4 mg SUBLINGUAL Q5M PRN 02/02/16 02/22/20 History Omeprazole [PriLOSEC] 20 mg PO DAILY 02/02/16 02/22/20 History Tamsulosin HCl [Flomax] 0.4 mg PO HS 02/02/16 02/22/20 History Cetirizine HCl [Zyrtec] 10 mg PO DAILY@1200 09/12/17 02/22/20 History Clopidogrel [Plavix] 75 mg PO HS 09/12/17 02/22/20 History Tolterodine Tartrate [Detrol LA] 4 mg PO AC-SUPPER 09/12/17 02/22/20 History Ubidecarenone [Co Q-10] 100 mg PO HS 09/12/17 02/22/20 History Calcium 500mg/Vit D3 400 Iu 1 tab PO BID 08/20/19 02/22/20 History Cholecalciferol [Vitamin D3] 400 unit PO AC-SUPPER 08/20/19 02/22/20 History Pygeum 25mg &Saw [place] 80mg 2 cap PO AC-SUPPER 08/20/19 02/22/20 History Triamcinolone Acetonide [Nasacort] 2 spray EA NOSTRIL HS 08/20/19 02/22/20 History Atorvastatin [Lipitor] 80 mg PO DAILY #30 tab 08/22/19 02/22/20 Rx Isosorbide Mononitrate ER [Imdur] 60 mg PO DAILY #30 tab.er.24h 12/26/19 02/22/20 Rx Metoprolol Tartrate [Lopressor] 25 mg PO BID-W/MEALS 02/22/20 02/22/20 History Allergies Allergy/AdvReac Type Severity Reaction Status Date / Time Sulfa (Sulfonamide Allergy Rash/Hives Verified 02/22/20 08:18 Antibiotics) Surgical - Exam Osteopathic Statement: *. No significant issues noted on an osteopathic structural exam other than those noted in the History and Physical/Consult. Vital Signs Temp Pulse Resp BP Pulse Ox 97.8 F 71 18 164/73 96 02/22/20 05:35 02/22/20 05:35 02/22/20 05:35 02/22/20 05:35 02/22/20 05:35 - General well developed, well nourished - Eyes PERRL - ENT no hearing loss - Neck trachea midline - Respiratory normal respiratory effort - Abdomen Soft, some tenderness to palpation in the epigastrium, nondistended, no rebound, no guarding - Psychiatric oriented to time, oriented to person, oriented to place Results - Labs 02/22/20 06:08 02/22/20 06:08 Abnormal Lab Results - Last 24 Hours (Table) 02/22/20 02/22/20 Range/Units 06:08 06:08 D-Dimer 1.99 H (<0.60) mg/L FEU Chloride 109 H (98-107) mmol/L BUN 21 H (9-20) mg/dL Glucose 114 H (74-99) mg/dL Diabetes panel 02/22/20 Range/Units 06:08 Sodium 139 (137-145) mmol/L Potassium 3.8 (3.5-5.1) mmol/L Chloride 109 H (98-107) mmol/L Carbon Dioxide 27 (22-30) mmol/L BUN 21 H (9-20) mg/dL Creatinine 0.92 (0.66-1.25) mg/dL Glucose 114 H (74-99) mg/dL Calcium 10.0 (8.4-10.2) mg/dL AST 32 (17-59) U/L ALT 35 (4-49) U/L Alkaline Phosphatase 51 (38-126) U/L Total Protein 7.0 (6.3-8.2) g/dL Albumin 3.7 (3.5-5.0) g/dL Calcium panel 02/22/20 Range/Units 06:08 Calcium 10.0 (8.4-10.2) mg/dL Albumin 3.7 (3.5-5.0) g/dL Pituitary panel 02/22/20 Range/Units 06:08 Sodium 139 (137-145) mmol/L Potassium 3.8 (3.5-5.1) mmol/L Chloride 109 H (98-107) mmol/L Carbon Dioxide 27 (22-30) mmol/L BUN 21 H (9-20) mg/dL Creatinine 0.92 (0.66-1.25) mg/dL Glucose 114 H (74-99) mg/dL Calcium 10.0 (8.4-10.2) mg/dL Adrenal panel 02/22/20 Range/Units 06:08 Sodium 139 (137-145) mmol/L Potassium 3.8 (3.5-5.1) mmol/L Chloride 109 H (98-107) mmol/L Carbon Dioxide 27 (22-30) mmol/L BUN 21 H (9-20) mg/dL Creatinine 0.92 (0.66-1.25) mg/dL Glucose 114 H (74-99) mg/dL Calcium 10.0 (8.4-10.2) mg/dL Total Bilirubin 0.7 (0.2-1.3) mg/dL AST 32 (17-59) U/L ALT 35 (4-49) U/L Alkaline Phosphatase 51 (38-126) U/L Total Protein 7.0 (6.3-8.2) g/dL Albumin 3.7 (3.5-5.0) g/dL Assessment and Plan Plan: 79-year-old male with complaint of epigastric pain and chronic cholecystitis. At this point, the patient's pain level is much improved from his initial presentation. Abdominal ultrasound and abdominal CT does show concerning finding of chronic cholecystitis with thickened gallbladder wall and these fin dings certainly could explain the patient's sudden epigastric and right upper quadrant pain. However, the patient does take Plavix as anticoagulation and is compliant with this medication with last dose yesterday evening. With improved abdominal pain, I would recommend surgical intervention with cholecystectomy as an outpatient after patient has held Plavix with clearance from cardiology. 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 If patient is cleared by cardiology for holding Plavix, we'll plan for cholecystectomy next week.
--- NOTE | 2020-02-23 11:37 | P.HPIM ---
History of Present Illness H&P Date: 02/23/20 Chief Complaint: Right upper quadrant abdominal pain, lower left chest pain History and Physical and Discharge Summary This is a 79-year-old gentleman with past medical history of CAD, history of SD, CABG, angina, recent cardiac catheterization in August 2019, CVA/TIA, 1999 brain shunt,diabetes mellitus, gastroesophageal reflux disease, hypertension, sleep apnea, degenerative joint disease with chronic back pain, back surgery, former smoker, former alcohol use and multiple other medical issues presented to the ER with lower midsternal nonradiating chest pain, not accompanied by shortness of breath or diaphoresis. Denies nausea vomiting or diarrhea. Reports right upper quadrant pain. Reports he took 3 nitroglycerin sublingual at home with minimal relief. Denies lightheadedness dizziness or focal deficits. Patient also reported fall in December, not evaluated and Brain CT obtained, reporting no definite acute intracranial abnormality seen, right frontal claude hole with underlying small area of encephalomalacia. Hypertensive on admission with systolic blood pressures in the 160s to 170s, heart rate 70s to 80s , respiratory rate 18, maintaining O2 sats in the 90s on room air. Troponins negative 3, EKG reporting normal sinus rhythm, right bundle branch block, left axis deviation. Afebrile, normal WBC. Hematology unremarkable. Elevated d-dime r, Doppler reported no evidence of DVT within the right lower extremity, CTA reported no acute PE , persistent scattered small nodules in a more prominent thoracic adenopathy. Chest x-ray reported no acute pulmonary process .sodium 139, potassium 3.8 BUN 21, creatinine 0.92, Magnesium 1.9. Triglycerides 85, cholesterol 100, LDL 46, HDL 37. Lipase 70. CT of abdomen and pelvis reported distended gallbladder margins, possible underlying hepatocellular disease, mild diffuse fatty infiltration, small pelvic ascites, no bowel obstruction and no acute findings clearly identified. Abdominal ultrasound reporting mildly hydropic gallbladder with mild wall thickening, no gallstones or sonographic M urphy sign possible chronic cholecystitis, possible early acute cholecystitis. Review of Systems ROS Statement: Those systems with pertinent positive or pertinent negative responses have been documented in the HPI. ROS Other: All systems not noted in ROS Statement are negative. Past Medical History Past Medical History: Coronary Artery Disease (CAD), Hyperlipidemia, Hypertension, Myocardial Infarction (SD) Additional Past Medical History / Comment(s): blood pressure to be kept low for shunt. Last Myocardial Infarction Date:: 1993 History of Any Multi-Drug Resistant Organisms: None Reported Date of last positivie culture/infection: 2009 MDRO Source:: L elbow Past Surgical History: Back Surgery, Coronary Bypass/CABG, Heart Catheterization With Stent, Orthopedic Surgery, Tonsillectomy Additional Past Surgical History / Comment(s): brain shunt Past Anesthesia/Blood Transfusion Reactions: No Reported Reaction, Motion Sickness Additional Past Anesthesia/Blood Transfusion Reaction / Comment(s): Pt has clausterphobia. Date of Last Stent Placement:: 2017 Past Psychological History: No Psychological Hx Reported Additional Psychological History / Comment(s): Pt resides with his spouse. He is independent. Smoking Status: Former smoker Past Alcohol Use History: None Reported Additional Past Alcohol Use History / Comment(s): Pt started smoking in 1955 and quit in 1994. He states he has hx of heavier drinking but quit years ago. Past Drug Use History: None Reported - Past Family History Father Family Medical History: Diabetes Mellitus, Myocardial Infarction (SD) Additional Family Medical History / Comment(s): heart attack 86 Mother Family Medical History: CVA/TIA Additional Family Medical History / Comment(s): of stroke Medications and Allergies Home Medications Medication Instructions Recorded Confirmed Type Aspirin [Adult Low Dose Aspirin EC] 81 mg PO HS 02/02/16 02/22/20 History Finasteride [Proscar] 5 mg PO HS 02/02/16 02/22/20 History Gabapentin [Neurontin] 300 - 600 mg PO Q8H 02/02/16 02/22/20 History Niacinamide [Niacin] 1,000 mg PO DAILY@1200 02/02/16 02/22/20 History Nitroglycerin Sl Tabs [Nitrostat] 0.4 mg SUBLINGUAL Q5M PRN 02/02/16 02/22/20 History Omeprazole [PriLOSEC] 20 mg PO DAILY 02/02/16 02/22/20 History Tamsulosin HCl [Flomax] 0.4 mg PO HS 02/02/16 02/22/20 History Cetirizine HCl [Zyrtec] 10 mg PO DAILY@1200 09/12/17 02/22/20 History Tolterodine Tartrate [Detrol LA] 4 mg PO AC-SUPPER 09/12/17 02/22/20 History Ubidecarenone [Co Q-10] 100 mg PO HS 09/12/17 02/22/20 History Calcium 500mg/Vit D3 400 Iu 1 tab PO BID 08/20/19 02/22/20 History Cholecalciferol [Vitamin D3] 400 unit PO AC-SUPPER 08/20/19 02/22/20 History Pygeum 25mg &Saw [place] 80mg 2 cap PO AC-SUPPER 08/20/19 02/22/20 History Triamcinolone Acetonide [Nasacort] 2 spray EA NOSTRIL HS 08/20/19 02/22/20 History Atorvastatin [Lipitor] 80 mg PO DAILY #30 tab 08/22/19 02/22/20 Rx Isosorbide Mononitrate ER [Imdur] 60 mg PO DAILY #30 tab.er.24h 12/26/19 02/22/20 Rx Metoprolol Tartrate [Lopressor] 25 mg PO BID-W/MEALS 02/22/20 02/22/20 History amLODIPine [Norvasc] 5 mg PO DAILY #30 tab 02/23/20 Rx Allergies Allergy/AdvReac Type Severity Reaction Status Date / Time Sulfa (Sulfonamide Allergy Rash/Hives Verified 02/22/20 08:18 Antibiotics) Physical Exam Vitals: Vital Signs Temp Pulse Pulse Resp BP BP Pulse Ox 02/23/20 03:00 98.3 F 78 15 106/59 93 L 02/22/20 21:00 97.6 F 69 18 151/66 93 L 02/22/20 15:00 97.9 F 69 18 150/68 95 02/22/20 11:33 180/74 02/22/20 11:03 97.7 F 70 18 95 02/22/20 10:42 75 18 174/69 99 02/22/20 09:48 82 18 171/74 98 Intake and Output 02/22/20 02/23/20 02/23/20 22:59 06:59 14:59 Intake Total 526 Balance 526 Intake: Oral 526 Other: Voiding Method Toilet Toilet # Voids 1 1 PHYSICAL EXAM: VITAL SIGNS: As above GENERAL: Sitting up in bed, no acute distress HEENT: Conjunctivae normal. eyes normal. Mucosa dry NECK: No JVD. No thyroid enlargement. CARDIOVASCULAR: S1, S2 regular. Systolic murmur RESPIRATION: Breath sounds diminished in the bases. No rhonchi or crackles. No bronchial breathing. ABDOMEN: Soft, right upper quadrant tenderness .No guarding. no masses palpable. No ascites, No hepatosplenomegaly.Bowel sounds heard. LEGS: No edema. no swelling PSYCHIATRY: Alert and oriented X3, mood and affect normal. NERVOUS SYSTEM: Cranial N 2-12 grossly normal. Moves all 4 limbs. No focal def icits. Strength and sensation grossly intact.. Skin: Warm and dry, no rash Results CBC & Chem 7: 02/22/20 06:08 02/22/20 06:08 Labs: Abnormal Lab Results - Last 24 Hours (Table) 02/22/20 Range/Units 06:08 HDL Cholesterol 37 L (40-60) mg/dL Thrombosis Risk Factor Assmnt - Choose All That Apply Any of the Below Risk Factors Present?: Yes Each Factor Represents 1 point: Obesity (BMI >25) Other Risk Factors: Yes Each Risk Factor Represents 3 Points: Age 75 years or older Thrombosis Risk Factor Assessment Total Risk Factor Score: 4 Thrombosis Risk Factor Assessment Level: Moderate Risk Assessment and Plan Assessment: Acute chest pain, in a patient with significant history of CAD, angina. troponin is negative 3, possible unstable angina. Right upper quadrant abdominal pain, significantly improved ,chronic cholecystitis with thickened gallbladder wall reported per abdominal ultrasound. Hypertension, uncontrolled on admission Persistent scattered small nodules in a more prominent thoracic adenopathy,further outpatient follow-up recommended. Diabetes mellitus Gastroesophageal reflux disease History of CABG, history of SD History of CVA, TIA, brain shunt 1998 DJD with chronic back pain, history of back surgery Hypertension Hyperlipidemia History of nicotine dependence History of alcohol use Plan: Continue on current medication regime ,monitoring and symptomatic treatment. Evaluated by cardiology. Echo reported normal LV function, EF 55- 60%. Blood pressure controlled with addition of Norvasc. Surgeon discussed with PCP, patient will need cholecystectomy and will need to hold Plavix for 5-7 days prior to the procedure, but continue on aspirin. Patient will be discharged home today pending final DC recommendations and clearance from cardiology, confirmation/set up of surgery plan as per surgery. Patient will need cardiac clearance prior to surgery. The impression and plan of care has been dictated as directed. : I performed a history and examination of this patient, discussed the same with the dictator. I agree with the dictator's note ,documented as a scribe. Any additional findings or plans will be noted.
== END 2020-02-23 10:50 ==
LOC: EC 05:34 → 1SOBS 08:47
PROVIDERS: ADMIT Family Medicine; ATTEND Family Medicine
DX: R07.9 Chest pain, unspecified (principal); I25.10 Atherosclerotic heart disease of native coronary artery without angina pectoris; I10 Essential (primary) hypertension; I45.2 Bifascicular block; I08.1 Rheumatic disorders of both mitral and tricuspid valves; E78.5 Hyperlipidemia, unspecified; K81.1 Chronic cholecystitis; K82.1 Hydrops of gallbladder; E11.9 Type 2 diabetes mellitus without complications; G89.29 Other chronic pain; M54.9 Dorsalgia, unspecified; K21.9 Gastro-esophageal reflux disease without esophagitis; I25.2 Old myocardial infarction; Z95.1 Presence of aortocoronary bypass graft; Z95.5 Presence of coronary angioplasty implant and graft; Z87.891 Personal history of nicotine dependence; M47.819 Spondylosis without myelopathy or radiculopathy, site unspecified; Z91.81 History of falling; Z98.890 Other specified postprocedural states; Z90.89 Acquired absence of other organs; Z86.73 Personal history of transient ischemic attack (TIA), and cerebral infarction without residual deficits; Z98.2 Presence of cerebrospinal fluid drainage device; Z86.19 Personal history of other infectious and parasitic diseases; Z83.3 Family history of diabetes mellitus; Z82.49 Family history of ischemic heart disease and other diseases of the circulatory system; Z82.3 Family history of stroke; Z79.02 Long term (current) use of antithrombotics/antiplatelets; Z79.82 Long term (current) use of aspirin; Z79.899 Other long term (current) drug therapy; Z88.2 Allergy status to sulfonamides
CPT/HCPCS: 93005 ×2; 96375 ×2; 96376 ×3; 96374; 99285; 36415; 85379; 80061; 80053; 83690; 83735; 84484; 85025; 85610; 85730; 71045; 76705; 93971; 70460; 71275; 74177; G0378 ×2; C8929; S0138; J2270 ×2; J2405; C9113 ×2; J1170; Q9950; Q9967; 93306

== ENCOUNTER → 2020-03-01 | Outpatient (CLI) | payer MEDICARE, BC | LOC: LABPAT 08:29 | PROVIDERS: ATTEND Surgery | DX: Z01.812 Encounter for preprocedural laboratory examination (principal); Z11.52 Encounter for screening for COVID-19; K82.1 Hydrops of gallbladder | CPT/HCPCS: 86900; 86901; 86850; 36415; U0003; C9803; U0005 ==

== ENCOUNTER → 2020-03-03 | Outpatient (CLI) | payer MEDICARE, BC ==
--- NOTE | 2020-03-03 14:09 | SFUN ---
SLEEP CENTER FOLLOW UP NOTE DATE OF SERVICE: 03/03/2020 This 79-year-old gentleman has been followed in Sleep Center for treatment of obstructive sleep apnea-hypopnea syndrome. The patient continued to use his CPAP equipment every night and does not have problems with the machine indicated that he sleeps well. For the chest pain, he was evaluated in the hospital recently and was found to have some gallbladder problems. The patient is planning for cholecystectomy at the present time. I checked his CPAP unit. CPAP pressure is 6 cm of water. Usage is /30 nights and 21/30 nights for more than 4 hours. Average usage 5.4 hours. The patient explained that he did not use machine for a few days because he was in the hospital. Leak is 10 L/minute which is acceptable. Apnea-hypopnea index although increased to 14.2. [place] Sleepiness Scale is 4, which is normal. MEDICATIONS: Metoprolol 25 mg twice a day, aspirin 81mg once a day, omeprazole 20 mg once a day, Nitrostat 0.4 mg on p.r.n. basis for chest pain, Lipitor 80 mg once a day, Tamsulosin capsule 0.4 mg once a day, finasteride tablets 5 mg once a day, Nasacort 2 puffs at bedtime, tolterodine tartrate ER 4 mg capsules once a day, isosorbide 60 mg once a day, niacinamide 500 mg 2 tablets once a day, Zyrtec 10 mg once a day, Gabapentin 300 mg one to two capsules every 8 hours, Plavix 75 mg once a day. PHYSICAL EXAMINATION: GENERAL: Patient in no distress. VITAL SIGNS: BP 114/58, HR 64, RR 15, height 5 feet 4-1/2 inches, weight 157, BMI 26.5, temperature 97.8, oxygen saturation at room air 97%. HEENT: PERRLA, EOMI. Oropharynx extremely low position of soft palate, Mallampati 4. NECK: Supple, no JVD. Thyroid is not palpable. LUNGS: Clear to percussion and to auscultation. Good air exchange. No wheezing or rhonchi. HEART: S1, S2 regular. No murmurs, gallops, or rubs. ABDOMEN: Soft and nontender. Bowel sounds are present. No organomegaly appreciated. EXTREMITIES: No clubbing or cyanosis. ENVIRONMENTAL RESOURCE SPECIALIST: Awake, alert, and oriented X3. Cranial nerves 2 to 7 intact. There is no fasciculation or atrophy. noted. No focal deficits observed. IMPRESSION: 1. Obstructive sleep apnea-hypopnea syndrome. Patient demonstrated good compliance with treatment, benefitting from treatment. Apnea-hypopnea index in the machine increased to 14.2. 2. Coronary artery disease, status post coronary artery bypass grafting, status post stent implanted in 2018 left coronary artery. 3. Status post brain surgery for shunt in 1998. 4. Status post right knee surgery. 5. History of cholecystitis. Patient is preparing for cholecystectomy at the present time. 6. Benign prostatic hypertrophy. 7. History of sinusitis. 8. Status post back surgery. 9. History of emphysema. 10.Status post bilateral cataract surgery in 2000. 11.Status post tonsillectomy. 12.Status post appendectomy in the past. PLAN: 1. I changed regimen of the machine to the automatic with range of the pressure 4-10. 2. Patient will continue to use PAP equipment every night for the whole night. 3. Sleep hygiene with regular time in bed for at least 7-1/2 to 8 hours. 4. Precautions related to driving. No driving if feeling sleepiness. 5. I will maintain all necessary prescription for PAP supplies including mask, tube, filters. 6. Watching weight. 7. No driving if feeling sleepiness. 8. Follow-up visit in 3 months or earlier if patient has any problems. Thank you very much for allowing me to participate in management of your patient. Sincerely, Ismael Aquino MD, PhD, FAASM Diplomat of [employer] [employer] [employer]visor [employer] [facility] [place] MMODL / IJN: [id number] /
== END | disposition home or self-care (01) ==

== ENCOUNTER 2020-03-08 07:13 | Day surgery (SDC) | payer MEDICARE, BC ==
[2020-03-03 13:31] VITALS: BMI 26.5
[~2020-03-08 07:13] MED LIST changes: +DEXAMETHASONE SOD PHOSPHATE 4 MG/ML 1 ML VIAL IV ONE; +HEPARIN SODIUM,PORCINE 5,000 UNIT/ML 1 ML VIAL SQ PRN; +HYDROmorphone 0.5 MG/0.5 ML SYRINGE IVP PRN; +LIDOCAINE 1% (10MG/ML) FOR IV START INTRADERMA PRN; -LIDOCAINE 1% 20 ML VIAL (10MG/ML) FOR IV START INTRADERMA PRN; +MIDAZOLAM 2 MG/2 ML VIAL IV PRN; +ONDANSETRON 4 MG/2 ML VIAL IVP ONE; +fentaNYL (PF) 50 MCG/ML 2 ML AMP IV PRN
[2020-03-08] MEDS ORDERED: TAMSULOSIN 0.4 MG CAP.ER.24H PO ONE (08:27)
[2020-03-08] MEDS ORDERED: GLYCOPYRROLATE 0.2 MG/ML 2 ML VIAL ONE (08:38)
[2020-03-08] MEDS ORDERED: PHENYLEPHRINE 10 MG/ML VIAL ONE (08:38)
[2020-03-08] MEDS ORDERED: PROPOFOL 10 MG/ML 20 ML VIAL IV ONE (08:38)
[2020-03-08] MEDS ORDERED: ROCURONIUM 10 MG/ML (10 ML VIAL) IV ONE (08:38)
[2020-03-08] MEDS ORDERED: NEOSTIGMINE 1 MG/ML 10 ML VIAL ONE (08:38)
[2020-03-08] MEDS ORDERED: SUCCINYLCHOLINE CHLORIDE 100 MG/5 ML SYR IV ONE (08:38)
[2020-03-08] MEDS ORDERED: fentaNYL (PF) 50 MCG/ML 2 ML AMP ONE (08:38)
[2020-03-08] MEDS ORDERED: LIDOCAINE 1% INJ 10MG/ML (20 ML MDV) ONE (08:38)
[2020-03-08] MEDS ORDERED: BUPIVACAINE (PF) 0.25% 30 ML VIAL SQ ONE ×2 (08:59)
--- NOTE | 2020-03-08 09:53 | P.OP ---
Date of Procedure: 03/08/20 Preoperative Diagnosis: Chronic cholecystitis Hydrops of gallbladder Postoperative Diagnosis: Chronic cholecystitis Hydrops of gallbladder Procedure(s) Performed: Laparoscopic cholecystectomy Anesthesia: KWAN Surgeon: Alyssa Mccarthy Pathology: other (Gallbladder and contents) Condition: stable Disposition: floor Indications for Procedure: 79-year-old male presents today for laparoscopic cholecystectomy. He had recent admission to the hospital with finding of hydrops of the gallbladder. He also was having epigastric and right upper quadrant pain at that time. Surgery was delayed based on the patient's taking Plavix. He has held his Plavix now for 1 week. He presents for cholecystectomy. Risks, benefits and alternatives were provided to the patient. He did provide consent prior to attending the operating suite. Operative Findings: Edematous gallbladder Hydrops of gallbladder Description of Procedure: Patient was brought into the operating suite and placed in supine position on the operating table. Anesthesia was administered and patient underwent endotracheal intubation. The patient was prepped and draped in regular sterile fashion. A infraumbilical incision was made dissection was carried to the fascia. The fascia was incised and the abdomen was entered. A 12 mm port was placed and pneumoperitoneum was achieved. 3 additional 5 mm ports were placed. One was placed in the subxiphoid location and 2 were placed in the right upper quadrant. The gallbladder was grasped and elevated. It was noted to be significantly edematous and on clasping was noted to have hydrops. The gallbladder was then retracted laterally. Dissection was carried along the infundibulum and the cystic artery and cystic duct were clearly visualized. Both were skeletonized. 2 clips were placed proximally on the cystic duct and one was placed distally and the cystic duct was ligated. Similarly, 2 clips were placed proximally on the cystic artery and one on the cystic duct and cystic artery was ligated. Cautery was then used to dissect the gallbladder from the gallbladder fossa. Hemostasis was maintained. The gallbladder was placed in an Endo Catch bag and removed from the abdomen. Copious amounts of irrigation was placed in the right upper quadrant and suctioned. The stasis continue to be maintained and coagulant material was placed in the liver bed. The infraumbilical fascial incision site was closed under direct visualization using a David Espinosa device with 0 Vicryl suture. All ports were then removed from the abdomen. Pneumoperitoneum was released. All incisions were closed with 4-0 Vicryl subcuticular suture. The patient was awakened in the operative and taken to postanesthesia care unit in stable condition.
[2020-03-08] MEDS ORDERED: NALOXONE 0.4 MG/ML 1 ML VIAL IV PRN (09:54)
[2020-03-08] MEDS ORDERED: ONDANSETRON 4 MG/2 ML VIAL IVP PRN (09:54)
[2020-03-08] MEDS ORDERED: NITROGLYCERIN SL TABS 0.4 MG TAB SUBLINGUAL PRN (09:58)
[2020-03-08] MEDS ORDERED: LACTATED RINGERS 1,000 ML IV ONE (11:07)
[2020-03-08] MEDS: LORATADINE 10 MG TAB PO SCH (12:06)
[2020-03-08] MEDS: NIACIN TR 500 MG CAPLET PO SCH (12:06)
[2020-03-08] MEDS: HYDROcodone/APAP 5-325MG 1 EACH TAB PO PRN ×2 (12:57→20:49)
[2020-03-08] MEDS: PIPERACILLIN-TAZOBACTAM 3.375 GM in SODIUM CHLORIDE 0.9% 100 ML IVPB SCH ×2 (13:54→20:48)
--- NOTE | 2020-03-08 15:26 | P.CNNES ---
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 General Surgery team wanted neurology to evaluate the patient after the surgery especially with the COMPONENT LAB TECH shunt. I spoke with Dr. Mccarthy via phone and he stated they were informed by the patient about his shunt after the procedure. Patient denies any headaches, diplopia, any focal weakness, any numbness. He feels he is at baseline. He doesn't feel any changes before after the episode except for some abdominal pain. He denies any nausea or vomiting. Denies any visual disturbance. Patient stated regarding his shunt because of 5 the spontaneous brain aneurysm i n 1998 he had that procedure at [facility] ([place]). He states that he followed up with the neurosurgeon last 2000 and he was told that he did not have to follow back according to him. He also has chronic Bactrim he has surgery he thinks it's 2 2001 but not exactly sure and he is to follow up with orthopedic where he was given gabapentin. He denies any radiation of the back pain the or any focal weakness. He stated that he is on aspirin and Plavix because of his coronary artery disease in which she had the CABG in 1993 at. The patient blood pressure today that is recorded has been in the range of 110s predominantly to 140 systolic diastolic is between [address] of the head was on 02/22/2020 and it was reported as some residual intracranial contrast removed from the PES CT of the chest performed earlier today. Allowing for this limitation, no definite acute intracranial abnormality seen. Moderate burden of chronic small vessel ischemic disease appeared old right frontal bur hole with underlying small area of encephalomalacia. Small air- fluid level within the left maxillary sinus. Correlate for any symptom of acute sinusitis. Additionally, there is minimal fluid within the inferior mastoid air cells of both sides. Correlate for any mastoid pain to exclude mastoiditis. Review of Systems Review of system: The 12 point system was reviewed and apparent positive and negative per HPI. Past Medical History Past Medical History: Coronary Artery Disease (CAD), Hyperlipidemia, Hypertension, Myocardial Infarction ([place]) Additional Past Medical History / Comment(s): blood pressure to be kept low for shunt. Last Myocardial Infarction Date:: 1993 History of Any Multi-Drug Resistant Organisms: None Reported Date of last positivie culture/infection: 2009 MDRO Source:: L elbow Past Surgical History: Back Surgery, Coronary Bypass/CABG, Heart Catheterization With Stent, Orthopedic Surgery, Tonsillectomy Additional Past Surgical History / Comment(s): brain shunt Past Anesthesia/Blood Transfusion Reactions: No Reported Reaction, Motion Sickness Additional Past Anesthesia/Blood Transfusion Reaction / Comment(s): Pt has claustrophobia. Date of Last Stent Placement:: 2017 Past Psychological History: No Psychological Hx Reported Additional Psychological History / Comment(s): Pt resides with his spouse. He is independent. Smoking Status: Former smoker Past Alcohol Use History: None Reported Additional Past Alcohol Use History / Comment(s): Pt started smoking in 1955 and quit in 1994. He states he has hx of heavier drinking but quit years ago. Past Drug Use History: None Reported - Past Family History Father Family Medical History: Diabetes Mellitus, Myocardial Infarction ([place]) Additional Family Medical History / Comment(s): heart attack 86 Mother Family Medical History: CVA/TIA Additional Family Medical History / Comment(s): of stroke Medications and Allergies Home Medications Medication Instructions Recorded Confirmed Type Aspirin [Adult Low Dose Aspirin EC] 81 mg PO HS 02/02/16 03/03/20 History Finasteride [Proscar] 5 mg PO HS 02/02/16 03/03/20 History Gabapentin [Neurontin] 300 - 600 mg PO Q8H 02/02/16 03/03/20 History Niacinamide [Niacin] 1,000 mg PO DAILY@1200 02/02/16 03/03/20 History Nitroglycerin Sl Tabs [Nitrostat] 0.4 mg SUBLINGUAL Q5M PRN 02/02/16 03/03/20 History Omeprazole [PriLOSEC] 20 mg PO DAILY 02/02/16 03/03/20 History Tamsulosin HCl [Flomax] 0.4 mg PO HS 02/02/16 03/03/20 History Cetirizine HCl [Zyrtec] 10 mg PO DAILY@1200 07/26/18 01/14/21 History Tolterodine Tartrate [Detrol LA] 4 mg PO AC-SUPPER 09/12/17 03/03/20 History Ubidecarenone [Co Q-10] 100 mg PO HS 09/12/17 03/03/20 History Calcium 500mg/Vit D3 400 Iu 1 tab PO BID 08/20/19 03/03/20 History Cholecalciferol [Vitamin D3 (10 400 unit PO AC-SUPPER 08/20/19 03/03/20 History Mcg = 400 Iu)] Pygeum 25mg &Saw [place] 80mg 2 cap PO AC-SUPPER 08/20/19 03/03/20 History Triamcinolone Acetonide [Nasacort] 2 spray EA NOSTRIL 08/20/19 03/03/20 History Atorvastatin [Lipitor] 80 mg PO DAILY #30 tab 08/22/19 03/03/20 Rx Isosorbide Mononitrate ER [Imdur] 60 mg PO DAILY #30 tab.er.24h 12/26/19 03/03/20 Rx Metoprolol Tartrate [Lopressor] 25 mg PO BID-W/MEALS 02/22/20 03/03/20 History amLODIPine [Norvasc] 5 mg PO DAILY #30 tab 02/23/20 03/03/20 Rx Clopidogrel [Plavix] 75 mg PO DAILY 03/03/20 03/03/20 History Allergies Allergy/AdvReac Type Severity Reaction Status Date / Time Sulfa (Sulfonamide Allergy Rash/Hives Verified 03/08/20 07:43 Antibiotics) Physical Examination - Vital Signs Vital Signs: Vital Signs Temp Pulse Pulse Resp BP Pulse Ox 03/08/20 13:35 79 137/64 90 L 03/08/20 13:20 79 133/62 93 L 03/08/20 13:05 78 135/64 94 L 03/08/20 12:50 75 135/64 94 L 03/08/20 12:35 54 L 120/55 93 L 03/08/20 12:20 57 L 126/55 94 L 03/08/20 12:05 68 124/62 94 L 03/08/20 11:50 62 143/69 94 L 03/08/20 11:35 52 L 117/53 93 L 03/08/20 11:03 52 L 16 122/57 100 03/08/20 10:45 53 L 16 124/58 100 03/08/20 10:31 51 L 16 127/60 100 03/08/20 10:17 52 L 16 143/63 100 03/08/20 10:00 52 L 16 154/65 100 03/08/20 09:54 96.9 F L 63 20 181/77 100 03/08/20 07:40 97.6 F 64 16 130/66 95 Intake and Output 03/07/20 03/08/20 03/08/20 22:59 06:59 14:59 Intake Total 1000 Output Total 5 Balance 995 Intake: IV 1000 Output: Estimated Blood Loss 5 Other: Weight 71.9 kg GENERAL: The patient is lying in bed and is not in acute distress. CHEST: The heart rate is regular rate rhythm. No murmurs to auscultation. LUNG: Clear to auscultation bilaterally no wheezing noted throughout. Not lab ored breathing. ABDOMEN/GI: Bowel sounds present in all 4 quadrants. No tenderness to palpation throughout. NEUROLOGICAL: Higher mental function: The patient is awake, alert, oriented to self, place and time. Patient is following commands. No aphasia and no neglect. Cranial nerves: The pupils are round, equal and reactive to light and accommodation. Visual freeman are full to confrontation throughout. Extraocular movement is intact no nystagmus is noted. Facial sensation is normal to touch throughout. The facial strength is normal throughout. Hearing is normal bilaterally to hand rub. Tongue is midline and moved [id number] without any difficulty. No dysarthria is noted. Shoulder shrug is normal bilaterally. Motor: Gait is deferred because of patient pain. The strength is non-localized but had at least 4+/5 throughout and was limited because with resistance was having abdominal pain. Bilateral hand continuous improvement analyst are 5/5. Normal tone and bulk. Cerebellum: Normal finger to nose bilaterally. Sensation: Sensation is normal to touch throughout. Reflexes (right/left): 3+ over bilateral patellar. Otherwise 2+ throughout. Plantars are downgoing bilaterally. Assessment and Plan Assessment: History of Spontaneous ruptured brain aneurysm status post COMPONENT LAB TECH shunt in 1998 chronic lower back pain status post surgery (at least 20 years ago) History of coronary artery disease status post CABG 1993 Chronic cholecystitis and dryrops of gallbladder s/p laparoscopic cholecystectomy POD#0 Plan: Neuro checks every 4 hours. If There is no change in the patient's neurological examination, then there is no further neurological workup needed. I notified the patient that he needs to follow-up with a neurologist within 2 weeks as well as neurosurgeon within 2 weeks upon discharge. He needs to follow-up with a neurosurgeon to assess his COMPONENT LAB TECH shunt. He needs to follow-up with a neurologist and concerns with the lower back pain. As well as usually neurologist work with the neurosurgeon when it comes to history of brain aneurysm. If he stable by tomorrow then the patient is clear from neurology perspective and isn't to follow-up with his neurologist within 2 weeks upon discharge. Thank you for the consultation. River Baig M.D. Neuro-hospitalist Time with Patient: Greater than 30
[2020-03-08] MEDS: HEPARIN SODIUM,PORCINE 5,000 UNIT/ML 1 ML VIAL SQ SCH ×2 (17:04→22:53)
[2020-03-08] MEDS: GABAPENTIN 300 MG CAP PO SCH ×2 (17:04→22:51)
[2020-03-08] MEDS: METOPROLOL TARTRATE 25 MG TAB PO SCH (17:05)
[2020-03-08] MEDS ORDERED: PYGEUM PO SCH (17:30)
[2020-03-08] MEDS ORDERED: CHOLECALCIFEROL 10 MCG (400 IU) TABLET PO SCH (17:30)
[2020-03-08] MEDS ORDERED: SAW PALMETTO 80 MG PO SCH (17:30)
[2020-03-08] MEDS ORDERED: OXYBUTYNIN XL 5 MG TAB.ER.24 PO SCH (17:30)
[2020-03-08] MEDS: LACTATED RINGERS 1,000 ML IV SCH ×2 (17:40→22:10)
[2020-03-08] MEDS: FAMOTIDINE 20 MG TAB PO SCH (20:49)
[2020-03-08] MEDS ORDERED: FINASTERIDE 5 MG TAB PO SCH (21:00)
[2020-03-08] MEDS ORDERED: NON FORMULARY DRUG (Ubidecarenone [Co Q-10] 300 MG Capsule) PO SCH (21:00)
[2020-03-08] MEDS ORDERED: ASPIRIN 81 MG PO SCH (21:00)
[2020-03-08] MEDS ORDERED: TAMSULOSIN 0.4 MG CAP.ER.24H PO SCH (21:00)
[2020-03-08] MEDS ORDERED: FLUTICASONE 50MCG/SPRAY NASAL 16GM EA NOSTRIL SCH (21:00)
[2020-03-08] MEDS: CALCIUM CARB-VIT D 500 MG-5 MCG TAB PO SCH (22:13)
[2020-03-09] MEDS: HYDROcodone/APAP 5-325MG 1 EACH TAB PO PRN (01:57)
[2020-03-09] MEDS: PIPERACILLIN-TAZOBACTAM 3.375 GM in SODIUM CHLORIDE 0.9% 100 ML IVPB SCH ×2 (03:42→12:57)
[2020-03-09] MEDS: LACTATED RINGERS 1,000 ML IV SCH (03:44)
[2020-03-09 07:10] LABS: Basophils % (A) 0 %; Eosinophils % (A) 0 %; HCT 43.6 % (39.0-53.0); HGB 14.2 gm/dL (13.0-17.5); Lymphocytes # (A) 1.6 k/uL (1.0-4.8); Lymphocytes % (A) 9 %; MCH 31.6 pg (25.0-35.0); MCHC 32.7 g/dL (31.0-37.0); MCV 96.7 fL (80.0-100.0); Monocytes # (A) 1.3 k/uL (0-1.0); Monocytes % (A) 7 %; Neutrophils # (A) 14.9 k/uL (1.3-7.7); Neutrophils % (A) 83 %; Platelet Count 233 k/uL (150-450); RBC 4.51 m/uL (4.30-5.90); RDW 12.2 % (11.5-15.5); WBC 18.1 k/uL (3.8-10.6)
[2020-03-09] MEDS ORDERED: ATORVASTATIN 80 MG TAB PO SCH (09:00)
[2020-03-09] MEDS ORDERED: ISOSORBIDE MONONITRATE ER 60 MG TAB.ER.24H PO SCH (09:00)
[2020-03-09] MEDS ORDERED: amLODIPine 5 MG TAB PO SCH (09:00)
[2020-03-09] MEDS ORDERED: CLOPIDOGREL 75 MG TAB PO SCH (09:00)
[2020-03-09] MEDS: FAMOTIDINE 20 MG TAB PO SCH (09:46)
[2020-03-09] MEDS: CALCIUM CARB-VIT D 500 MG-5 MCG TAB PO SCH (09:46)
[2020-03-09] MEDS: METOPROLOL TARTRATE 25 MG TAB PO SCH (09:46)
[2020-03-09] MEDS: GABAPENTIN 300 MG CAP PO SCH (09:47)
[2020-03-09] MEDS: HEPARIN SODIUM,PORCINE 5,000 UNIT/ML 1 ML VIAL SQ SCH (09:47)
[2020-03-09] MEDS: NIACIN TR 500 MG CAPLET PO SCH (12:57)
[2020-03-09] MEDS: LORATADINE 10 MG TAB PO SCH (12:57)
[2020-03-09] MEDS ORDERED: PANTOPRAZOLE 40 MG/10 ML VIAL IVP SCH (13:00)
[2020-03-09 13:03] LABS: Albumin 4.1 g/dL (3.80-4.90); Albumin/Globulin Ratio 1.58 (1.60-3.17); Anion Gap 10.8 mmol/L (4.00-12.00); Calcium 9.5 mg/dL (8.7-10.3); Carbon Dioxide 26.2 mmol/L (21.6-31.8); Globulin 2.6 g/dL (1.6-3.3); Non-African American GFR(CKD) 70.8 (60.0-200.0); Potassium 4.9 mmol/L (3.5-5.5); Total Bilirubin 0.7 mg/dL (0.3-1.2); Total Protein 6.7 g/dL (6.2-8.2)
[2020-03-09 13:11] VITALS: BP 157/67; PULSE 64; RESP 21; TEMP 97.9
--- NOTE | 2020-03-09 14:20 | P.HPIM ---
History of Present Illness H&P Date: 03/09/20 Please change this to a consult. This is a 79-year-old gentleman with past medical history of CAD, history of SD, CABG, angina, recent cardiac catheterization in August 2019, CVA/TIA, 1999 brain shunt, chronic lower back pain -status post surgery ,diabetes mellitus, gastroesophageal reflux disease, hypertension, sleep apnea, degenerative joint disease with chronic back pain, back surgery, former smoker, former alcohol use and multiple other medical issues admitted for elective laparoscopic cho lecystectomy. Patient reports he held his Plavix for 1 week prior to surgery. Tolerated procedure well. Evaluated by neurology related to his history of spontaneous rupture brain aneurysm with REIMBURSEMENT DIRECTOR shunt, recommendations noted including neuro checks every 4 hours postop. Denies chest pain, palpitations or shortness of breath. Denies lightheadedness, dizziness or focal deficits. Pain controlled. Passing flatus. Afebrile. Labs pending. Review of Systems ROS Statement: Those systems with pertinent positive or pertinent negative responses have been documented in the HPI. ROS Other: All systems not noted in ROS Statement are negative. Past Medical History Past Medical History: Coronary Artery Disease (CAD), Hyperlipidemia, Hypertension, Myocardial Infarction ([place]) Additional Past Medical History / Comment(s): blood pressure to be kept low for shunt. Last Myocardial Infarction Date:: 1993 History of Any Multi-Drug Resistant Organisms: None Reported Date of last positivie culture/infection: 2009 MDRO Source:: L elbow Past Surgical History: Back Surgery, Coronary Bypass/CABG, Heart Catheterization With Stent, Orthopedic Surgery, Tonsillectomy Additional Past Surgical History / Comment(s): brain shunt Past Anesthesia/Blood Transfusion Reactions: No Reported Reaction, Motion Sickness Additional Past Anesthesia/Blood Transfusion Reaction / Comment(s): Pt has claustrophobia. Date of Last Stent Placement:: 2017 Past Psychological History: No Psychological Hx Reported Additional Psychological History / Comment(s): Pt resides with his spouse. He is independent. Smoking Status: Former smoker Past Alcohol Use History: None Reported Additional Past Alcohol Use History / Comment(s): Pt started smoking in 1956 and quit in 1994. He states he has hx of heavier drinking but quit years ago. Past Drug Use History: None Reported - Past Family History Father Family Medical History: Diabetes Mellitus, Myocardial Infarction ([place]) Additional Family Medical History / Comment(s): heart attack 86 Mother Family Medical History: CVA/TIA Additional Family Medical History / Comment(s): of stroke Medications and Allergies Home Medications Medication Instructions Recorded Confirmed Type Aspirin [Adult Low Dose Aspirin EC] 81 mg PO HS 02/02/16 03/03/20 History Finasteride [Proscar] 5 mg PO HS 02/02/16 03/03/20 History Gabapentin [Neurontin] 300 - 600 mg PO Q8H 02/02/16 03/03/20 History Niacinamide [Niacin] 1,000 mg PO DAILY@1200 02/02/16 03/03/20 History Nitroglycerin Sl Tabs [Nitrostat] 0.4 mg SUBLINGUAL Q5M PRN 02/02/16 03/03/20 History Omeprazole [PriLOSEC] 20 mg PO DAILY 02/02/16 03/03/20 History Tamsulosin HCl [Flomax] 0.4 mg PO HS 02/02/16 03/03/20 History Cetirizine HCl [Zyrtec] 10 mg PO DAILY@1200 09/12/17 03/03/20 History Tolterodine Tartrate [Detrol LA] 4 mg PO AC-SUPPER 09/12/17 03/03/20 History Ubidecarenone [Co Q-10] 100 mg PO HS 09/12/17 03/03/20 History Calcium 500mg/Vit D3 400 Iu 1 tab PO BID 08/20/19 03/03/20 History Cholecalciferol [Vitamin D3 (10 400 unit PO AC-SUPPER 08/20/19 03/03/20 History Mcg = 400 Iu)] Pygeum 25mg &Saw [place] 80mg 2 cap PO AC-SUPPER 08/20/19 03/03/20 History Triamcinolone Acetonide [Nasacort] 2 spray EA NOSTRIL HS 08/20/19 03/03/20 History Atorvastatin [Lipitor] 80 mg PO DAILY #30 tab 08/22/19 03/03/20 Rx Isosorbide Mononitrate ER [Imdur] 60 mg PO DAILY #30 tab.er.24h 12/26/19 03/03/20 Rx Metoprolol Tartrate [Lopressor] 25 mg PO BID-W/MEALS 02/22/20 03/03/20 History amLODIPine [Norvasc] 5 mg PO DAILY #30 tab 02/23/20 03/03/20 Rx Clopidogrel [Plavix] 75 mg PO DAILY 03/03/20 03/03/20 History Amoxicillin/Potassium Clav 1 tab PO Q12HR 1 Days #14 tab 03/09/20 Rx [Augmentin 500-125 Tablet] HYDROcodone/APAP 5-325MG [[place] 1 each PO Q4HR PRN #12 tab 03/09/20 Rx 5-325] Allergies Allergy/AdvReac Type Severity Reaction Status Date / Time Sulfa (Sulfonamide Allergy Rash/Hives Verified 03/08/20 07:43 Antibiotics) Physical Exam Vitals: Vital Signs Temp Pulse Resp BP Pulse Ox 03/09/20 07:16 97.5 F L 66 18 145/67 92 L 03/09/20 01:46 98.4 F 69 15 137/69 93 L 03/08/20 19:51 84 15 03/08/20 19:50 97.7 F 84 15 148/70 94 L 03/08/20 13:35 79 137/64 90 L 03/08/20 13:20 79 133/62 93 L 03/08/20 13:05 78 135/64 94 L 03/08/20 12:50 75 135/64 94 L 03/08/20 12:35 54 L 120/55 93 L 03/08/20 12:20 57 L 126/55 94 L Intake and Output 03/08/20 03/09/20 03/09/20 22:59 06:59 14:59 Intake Total 240 240 Output Total 2 1400 Balance 238 -1160 Intake: Oral 240 240 Output: Urine 2 1400 Other: Voiding Method Urinal # Voids 1 PHYSICAL EXAM: VITAL SIGNS: As above GENERAL: Sitting up in bed, no acute distress HEENT: Conjunctivae normal. eyes normal. Mucosa moist. NECK: No JVD. No thyroid enlargement. CARDIOVASCULAR: S1, S2 regular. Systolic murmur RESPIRATION: Breath sounds diminished in the bases. No rhonchi or crackles. No bronchial breathing. ABDOMEN: Soft, status post surgery, laparoscopic sites clean, dry .Bowel sounds heard. LEGS: No edema. no swelling PSYCHIATRY: Alert and oriented X3, mood and affect normal. NERVOUS SYSTEM: Cranial N 2-12 grossly normal. Moves all 4 limbs. No focal deficits. Strength and sensation grossly intact.. Skin: Warm and dry, no rash Results CBC & Chem 7: 03/09/20 06:07 03/09/20 06:07 Labs: Abnormal Lab Results - Last 24 Hours (Table) 03/09/20 Range/Units 06:07 WBC 18.1 H (3.8-10.6) k/uL Neutrophils # 14.9 H (1.3-7.7) k/uL Monocytes # 1.3 H (0-1.0) k/uL Thrombosis Risk Factor Assmnt - Choose All That Apply Any of the Below Risk Factors Present?: Yes Each Factor Represents 1 point: Obesity (BMI >25) Other Risk Factors: Yes Each Risk Factor Represents 3 Points: Age 75 years or older Other congenital or acquired thrombophilia - If yes, enter type in comment: No Thrombosis Risk Factor Assessment Total Risk Factor Score: 4 Thrombosis Risk Factor Assessment Level: Moderate Risk Assessment and Plan Assessment: Status post laparoscopic cholecystectomy secondary to chronic cholecystitis, edematous gallbladder,hydrops Leukocytosis, reactive Hypertension Diabetes mellitus Gastroesophageal reflux disease Atelectasis History of scattered small nodules in a more prominent thoracic adenopathy,further outpatient follow-up recommended. History of CABG, history of SD History of CVA, TIA, brain shunt 1998 DJD with chronic back pain, history of back surgery Hypertension Hyperlipidemia History of nicotine dependence History of alcohol use Plan: Continue on current medication regime, monitoring and symptomatically treatment. Aggressive pulmonary toileting with incentive spirometer ordered. Ambulating, tolerating exertion well. Pain controlled. Tolerating diet with no nausea vomiting diarrhea. Patient is being discharged later this afternoon as per surgery in stable condition with guarded prognosis. Follow up with PCP, Dr. Urban in [address] Mccarthy for this consult. The impression and plan of care has been dictated as directed. : I performed a history and examination of this patient, discussed the same with the dictator. I agree with the dictator's note ,documented as a scribe. Any additional findings or plans will be noted.
[2020-03-09] MEDS ORDERED: INSULIN ASPART (NovoLOG) 100 UNIT/ML VIAL SQ SCH (17:30)
== END 2020-03-09 15:31 | disposition home or self-care (01) ==
LOC: OR 07:13 → 5NMEDONC 10:02 → OR 03-09 15:31
PROVIDERS: ATTEND Surgery
DX: K80.10 Calculus of gallbladder with chronic cholecystitis without obstruction (principal); I25.10 Atherosclerotic heart disease of native coronary artery without angina pectoris; E78.5 Hyperlipidemia, unspecified; I10 Essential (primary) hypertension; I25.2 Old myocardial infarction; M19.90 Unspecified osteoarthritis, unspecified site; G47.30 Sleep apnea, unspecified; Z86.73 Personal history of transient ischemic attack (TIA), and cerebral infarction without residual deficits; G89.29 Other chronic pain; M54.5 Low back pain; E66.9 Obesity, unspecified; Z68.26 Body mass index [BMI] 26.0-26.9, adult; E11.9 Type 2 diabetes mellitus without complications; F40.240 Claustrophobia; K21.9 Gastro-esophageal reflux disease without esophagitis; Z87.891 Personal history of nicotine dependence; Z86.2 Personal history of diseases of the blood and blood-forming organs and certain disorders involving the immune mechanism; Z95.1 Presence of aortocoronary bypass graft; Z95.5 Presence of coronary angioplasty implant and graft; Z98.890 Other specified postprocedural states; Z90.89 Acquired absence of other organs; Z98.2 Presence of cerebrospinal fluid drainage device; Z82.3 Family history of stroke; Z83.3 Family history of diabetes mellitus; Z82.49 Family history of ischemic heart disease and other diseases of the circulatory system; Z79.02 Long term (current) use of antithrombotics/antiplatelets; Z79.82 Long term (current) use of aspirin; Z79.899 Other long term (current) drug therapy; Z79.891 Long term (current) use of opiate analgesic; Z88.2 Allergy status to sulfonamides
CPT/HCPCS: 88304; 80053; 85025; 47562; S0138; J2543 ×2; J1644 ×2; J1100; J0690; J2405; J1170; 36415; 86850; 86900; 86901

== ENCOUNTER → 2020-04-15 | Outpatient (CLI) | payer MEDICARE, BC ==
--- NOTE | 2020-04-15 12:41 | US ---
EXAMINATION TYPE: US thyroid st tissue head/neck DATE OF EXAM: 04/15/2020 COMPARISON: NONE CLINICAL HISTORY: E04.1 THYROID NODULE,K11.8 PAROTID MASS. follow up thryoid nodule and known right p arotid mass. GLAND SIZE: Right Lobe: 4.9 x 1.7 x 2.2 cm Overall Parenchyma: heterogenous Left Lobe: 4.3 x 1.7 x 2.0 cm Overall Parenchyma: heterogeneous Isthmus Thickness: 0.4 cm NODULES RIGHT: # of nodules measured on right: 1 1. 1.1 X 0.7 x 0.5 cm mixed cystic and solid, upper pole anechoic nodule, which is wider than tall, with smooth margins, with internal echogenic foci. Prior size: 1.3 x 0.5 x 0.9 cm LEFT: # of nodules measured on left: 2 1. 0.9 X 1.0 x 0.7 cm lower pole mixed cystic and solid, anechoic nodule, which is wider than tall, with smooth margins, with echogenic internal foci. Prior size: 0.9 x 0.7 x 0.9 cm 2. 0.6 X 0.5 x 0.6 cm lower pole mixed cystic and solid, hypoechoic nodule, which is taller than wi de, with smooth margins, without echogenic foci. Prior size: 0.5 x 0.6 x 0.6 cm ISTHMUS: # of nodules measured in the isthmus: 0 Bilateral neck scanned, no evidence of lymphadenopathy. Right parotid mass currently measures 3.6 x 1.5 x 1.8 cm. Previous measurements 3.6 x 1.2 x 2.6 cm. IMPRESSION: 1. No suspicious thyroid nodules. 2. Right parotid mass currently measures 3.6 x 1.5 x 1.8 cm. 2017 ACR TI-RADS LEVEL: TR-RADS 2 - Not Suspicious: No FNA *Highest TI-RADS level nodule reported
== END | disposition home or self-care (01) ==
LOC: RADUSWWP 09:32
PROVIDERS: ATTEND Otolaryngology
DX: K11.8 Other diseases of salivary glands (principal)
CPT/HCPCS: 76536

== ENCOUNTER → 2020-07-21 | Outpatient (CLI) | payer MEDICARE, BC ==
--- NOTE | 2020-07-21 23:56 | SFUN ---
SLEEP CENTER FOLLOW UP NOTE DATE OF SERVICE: 07/21/2020 80-year-old gentleman has been followed in Sleep Center for treatment of obstructive sleep apnea-hypopnea syndrome. During previous visit in February because apnea-hypopnea index was increased to 14.2, I changed regimen in the machine to a maximal pressure of 10 cm of water. Before it was 6 cm of water. Patient continued to use his CPAP equipment every night. No complaints from sleep. [place] Sleepiness Scale today is 3. I checked CPAP unit. Range of the pressure 4-10. Average 9.4 cm of water, usage 23/30 nights and 14 out of 30 nights for more than 4 hours, average 4.6 hours per night. Leak is 10 L/minute which is acceptable. At the same time, Apnea-hypopnea index again increased to 14.4 and does include central apnea-hypopnea index only 0.2. MEDICATIONS: Metoprolol 25 mg twice a day. Aspirin 81 mg once a day. Omeprazole 20 mg once a day. Nitrostat 0.4 mg on p.r.n. basis. Lipitor 80 mg once a day. Tamsulosin 0.4 mg once a day. Finasteride 5 mg once a day, Nasacort, 2 puffs each nostrils before bedtime, extended release 4 mg once a day, isosorbide once a day. Niacinamide 500 mg 2 tablets once a day, Zyrtec 10 mg once a day as needed, gabapentin 300 mg 1-2 capsules every 8 hours, calcium supplement. PHYSICAL EXAMINATION: GENERAL: Patient in no distress. BP 155/66, HR 61, RR 12, height 5 feet 5 inches, weight 158.2, temperature 97.3, oxygen saturation at room air 95%. Body mass index 26.5. HEENT: PERRLA, EOMI. Oropharynx extremely low position of soft palate. Mallampati 4. NECK: Supple, no JVD. Thyroid is not palpable. LUNGS: Clear to percussion and to auscultation. Good air exchange. No wheezing or rhonchi. HEART: S1, S2 regular. No murmurs, gallops, or rubs. ABDOMEN: Soft and nontender. Bowel sounds are present. No organomegaly appreciated. EXTREMITIES: No clubbing or cyanosis. FORTUNE COOKIE MAKER: Awake, alert, and oriented X3. Cranial nerves 2 to 7 intact. There is no fasciculation or atrophy. noted. No focal deficits observed. IMPRESSION: 1. Obstructive sleep apnea-hypopnea syndrome. Patient demonstrated an acceptable compliance with treatment, benefitting from treatment. Apnea-hypopnea index reading from CPAP unit increased from 14. 2. Coronary artery disease, status post CABG, status post stent insertion in the left coronary artery. 3. Status post brain surgery for shunt in 1998. 4. Status post cholecystectomy in March of 2020. 5. Status post right knee surgery. 6. Benign prostatic hypertrophy. 7. History of sinusitis. 8. Status post back surgery. 9. History of emphysema. 10.Status post bilateral cataract surgery in 2000. 11.Status post tonsillectomy. 12.Status post appendectomy in the past. PLAN: 1. I changed regimen in the machine to range of the pressure 4-14 cm of water. 2. Patient will continue to use PAP equipment every night for the whole night. 3. Sleep hygiene with regular time in bed for at least 7-1/2 to 8 hours. 4. Precautions related to driving. No driving if feeling sleepiness. 5. I will maintain all necessary prescription for PAP supplies including mask, tube, filters. 6. Watching weight. Thank you very much for allowing me to participate in management of your patient. Sincerely, Ismael Aquino MD, PhD, FAASM Diplomat of [employer] [facility] [place] MMODL / EMILYN: [id number] /
== END ==
LOC: SLEEP 13:21
PROVIDERS: ATTEND Internal Medicine
DX: G47.33 Obstructive sleep apnea (adult) (pediatric) (principal); I25.110 Atherosclerotic heart disease of native coronary artery with unstable angina pectoris; Z95.1 Presence of aortocoronary bypass graft; Z95.5 Presence of coronary angioplasty implant and graft; Z90.49 Acquired absence of other specified parts of digestive tract; M96.1 Postlaminectomy syndrome, not elsewhere classified; N40.0 Benign prostatic hyperplasia without lower urinary tract symptoms; Z98.890 Other specified postprocedural states; Z87.09 Personal history of other diseases of the respiratory system; Z90.09 Acquired absence of other part of head and neck; Z98.41 Cataract extraction status, right eye; Z98.42 Cataract extraction status, left eye; Z99.81 Dependence on supplemental oxygen; Z79.82 Long term (current) use of aspirin; Z88.2 Allergy status to sulfonamides; Z87.891 Personal history of nicotine dependence
CPT/HCPCS: 99211

== ENCOUNTER → 2020-11-16 | Outpatient (CLI) | payer MEDICARE, BC ==
--- NOTE | 2020-11-16 13:45 | US ---
EXAMINATION TYPE: US thyroid st tissue head/neck DATE OF EXAM: 11/16/2020 COMPARISON: 04/15/2020 CLINICAL HISTORY: E04.1 Thyroid nodule, K11.8 Parotid mass. GLAND SIZE: Right Lobe: 5.3x2.6x1.9 cm Overall Parenchyma: homogenous Left Lobe: 5.7x2.3x2.0 cm Overall Parenchyma: homogeneous Isthmus Thickness: 0.6 cm NODULES RIGHT: # of nodules measured on right: 1 1. 1.4 X 0.6 x 0.7 cm, upper mid, cystic or almost completely cystic, anechoic nodule, which is wid er than tall, with smooth margins, with echogenic foci. Prior size: 1.1 x 0.5 x 0.7 cm LEFT: # of nodules measured on left: 2 1. 0.9 X 0.8 x 0.8 cm, lower medial, cystic or almost completely cystic, anechoic nodule, which is wider than tall, with smooth margins, with echogenic foci. Prior size: 0.9 x 0.7 x 1.0 cm 2. 0.5 X 0.5 x 0.5 cm, lower lateral, cystic or almost completely cystic, anechoic nodule, which i s wider than tall, with smooth margins, with echogenic foci. Prior size: 0.6 x 0.6 x 0.5 cm ISTHMUS: # of nodules measured in the isthmus: 1 Bilateral neck scanned, no evidence of lymphadenopathy. Known right parotid lesion measuring 3.4x1.4x1.6cm previously measuring( 3.6x1.5x1.8cm) IMPRESSION: Nonspecific thyroid nodularity
== END | disposition home or self-care (01) ==
LOC: RADUSWWP 12:59
PROVIDERS: ATTEND Otolaryngology
DX: E04.2 Nontoxic multinodular goiter (principal)
CPT/HCPCS: 76536

== ENCOUNTER → 2020-11-24 | Outpatient (CLI) | payer MEDICARE, BC ==
--- NOTE | 2020-11-24 18:58 | SFUN ---
SLEEP CENTER FOLLOW UP NOTE DATE OF SERVICE: 11/24/2020 This 80-year-old gentleman has been followed in Sleep Center for treatment of obstructive sleep apnea-hypopnea syndrome. The patient continues to use his CPAP equipment every night. During the previous visit, because apnea-hypopnea index was increased, I increased the level of pressure. During the period of time since I saw the patient previously, about 4 months ago, the patient had one episode when he felt that the pressure was too high. [place] Sleepiness Scale today is 4. I checked his CPAP unit. Range of the pressure is 4 to 14, average pressure 12.8, usage 28/30 nights and 22/30 nights for more than 4 hours, which is good compliance. Leak is 11 L/minute. Apnea-hypopnea index is 7.4. During previous visit, apnea-hypopnea index was 14.4. MEDICATIONS: 1. Metoprolol 25 mg twice a day. 2. Omeprazole 20 mg once a day. 3. Nitrostat 0.4 mg for chest pain as needed. 4. Lipitor 80 mg once a day. 5. Tamsulosin 0.4 mg once a day. 6. Finasteride 5 mg once a day. 7. Nasacort sprays at bedtime. 8. Tolterodine 4 mg once a day. 9. Isosorbide once a day. 10.Niacinamide 500 mg once a day. 11.Zyrtec 10 mg once a day. 12.Gabapentin 300 mg once every 8 hours. 13.Clopidogrel 75 mg once a day. PHYSICAL EXAMINATION: GENERAL: Pleasant patient in no distress. VITAL SIGNS: BP 122/65, HR 63, RR 15, height 5 feet 6 inches, weight 159.0, temperature 97.3, oxygen saturation at room air 95%. Body mass index 25.6. HEENT: PERRLA, EOMI, evaluation of oropharynx showed tongue protrudes midline. Extremely low position of soft palate; Mallampati IV. NECK: Supple, no JVD. Thyroid is not palpable. LUNGS: Clear to percussion and to auscultation. Good air exchange. No wheezing or rhonchi. HEART: S1, S2 regular. No murmurs, gallops, or rubs. ABDOMEN: Soft and nontender. Bowel sounds are present. No organomegaly appreciated. EXTREMITIES: No clubbing or cyanosis. JOB INTERVIEWER: Awake, alert, and oriented X3. Cranial nerves 2 to 7 intact. There is no fasciculation or atrophy. noted. No focal deficits observed. IMPRESSION: 1. Obstructive sleep apnea-hypopnea syndrome. Good compliance with treatment, benefitting from treatment. Apnea-hypopnea index was reduced after pressure was increased during the previous visit. One episode when patient felt the pressure was too high during the 6 months. 2. Coronary artery disease, status post CABG and stent insertion to the left coronary artery. 3. Status post brain surgery for shunt in 1998. 4. Status post cholecystectomy in March 2020. 5. Status post right knee surgery. 6. Benign prostatic hypertrophy. 7. History of sinusitis. 8. Status post back surgery. 9. History of emphysema. 10.Status post bilateral cataract surgery in 2000. 11.Status post tonsillectomy. 12.Status post appendectomy in the past. PLAN: 1. I changed regimen in the machine and slightly decreased maximal pressure to 13. 2. Patient will continue to use PAP equipment every night for the whole night. 3. Sleep hygiene with regular time in bed for at least 7-1/2 to 8 hours. 4. Precautions related to driving. No driving if feeling sleepiness. 5. I will maintain all necessary prescription for PAP supplies including mask, tube, filters. 6. Watching weight. 7. Follow-up visit in 6 months or earlier if patient has any problems. Thank you very much for allowing me to participate in the management of your patient. Sincerely, Ismael Aquino MD, PhD, FAASM Diplomat of [place] [employer] Sleep Medicine Board of [place] [employer] Clinical Geneticist of [facility] [place] MMODL / IJN: [id number] /
== END ==
LOC: SLEEP 15:34
PROVIDERS: ATTEND Internal Medicine
DX: G47.33 Obstructive sleep apnea (adult) (pediatric) (principal); I25.10 Atherosclerotic heart disease of native coronary artery without angina pectoris; N40.0 Benign prostatic hyperplasia without lower urinary tract symptoms; Z95.1 Presence of aortocoronary bypass graft; Z95.5 Presence of coronary angioplasty implant and graft; Z98.2 Presence of cerebrospinal fluid drainage device; Z90.49 Acquired absence of other specified parts of digestive tract; Z98.890 Other specified postprocedural states; Z87.09 Personal history of other diseases of the respiratory system; Z98.42 Cataract extraction status, left eye; Z98.41 Cataract extraction status, right eye; Z99.89 Dependence on other enabling machines and devices; Z87.891 Personal history of nicotine dependence; Z88.2 Allergy status to sulfonamides

== ENCOUNTER → 2021-07-24 | Outpatient (CLI) | payer MEDICARE, BC ==
--- NOTE | 2021-07-25 10:35 | CA ---
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 18 - 58 / 22 - 52 cm??? M-MODE Aortic Root Diameter MM 3.7 cm MV E Point Septal Separation 1.5 cm AV Cusp Separation MM 2.0 cm DOPPLER AV Peak Velocity 110.4 cm/s AV Peak Gradient 4.9 mmHg MV Area PHT 3.0 cm??? Mitral E Point Velocity 118.1 cm/s Mitral A Point Velocity 109.5 cm/s Mitral E to A Ratio 1.1 MV Deceleration Time 252.8 ms MV E' Velocity 8.0 cm/s Mitral E to MV E' Ratio 14.8 TR Peak Velocity 226.9 cm/s TR Peak Gradient 20.6 mmHg Right Ventricular Systolic Press 24.6 mmHg FINDINGS Left Ventricle Left ventricular ejection fraction is estimated at 55-60 %. Left ventricular cavity size normal. Borderline left ventricular hypertrophy. Right Ventricle Normal right ventricular size and function. Right ventricular systolic pressure within normal limits. Right Atrium Normal right atrial size. Left Atrium Normal left atrial size. No evidence for an atrial septal defect. Mitral Valve Mitral valve thickened. Mitral annular calcification. Mild mitral regurgitation. Aortic Valve Thickened aortic valve without stenosis. Trileaflet aortic valve. Tricuspid Valve Mild tricuspid regurgitation. Pulmonic Valve Trace to mild pulmonic regurgitation. Pericardium Normal pericardium. Aorta Normal size aortic root and proximal ascending aorta. CONCLUSIONS #1. Normal left ventricle size with preserved LV function. #2. Mitral and PATIENT with mild regurgitation and mild tricuspid regurgitation Previewed by: Dr. Meche Morgan MD (Electronically Signed) Final Date: 25 July 2021 10:34
== END | disposition home or self-care (01) ==
LOC: RADECHMAIN 14:23
PROVIDERS: ATTEND Internal Medicine
DX: I08.1 Rheumatic disorders of both mitral and tricuspid valves (principal)
CPT/HCPCS: 93306

== ENCOUNTER → 2021-08-03 | Outpatient (CLI) | payer MEDICARE, BC ==
--- NOTE | 2021-08-03 14:13 | P.PN ---
Subjective DATE: 08/03/2021 FOLLOW UP VISIT. Patient with obstructive sleep apnea hypopnea syndrome return to sleep center for follow-up visit. Patient is using PAP equipment every night for the whole night, getting PAP supplies in time. The patient does not have significant problems with the mask, PAP unit and humidification. Harris sleepiness scale is 8 which is normal. I checked information from PAP unit. PAP unit pressure 4-13 cm H2O. Usage is 98 % for more then 4 hours. Leak is 20 l/m, which is in acceptable range. Apnea Hypopnea Index is 4.6, which is normal. Air filter is in bed shape. MEDICATIONS:1. Metoprolol 25 mg twice a day 2. Aspirin 81 mg once a day 3. Omeprazole 20 mg once a day 4. Lipitor 80 mg once a day 5. Tums so was in 0.4 mg once a day 6. Proscar 5 mg once a day 7. Zirtec 10 mg once a day 8. Gabapentin 300 mg every 8 hours 9. Plavix 75 mg once a day During physical exam: GENERAL: A pleasant patient without any distress. VITAL SIGNS: BP 135/68, HR 64, RR 16, weight 166.8, temperature 97.4, oxygen saturation at room air 96. HEENT: PERRLA, EOMI.low position of soft palate, Mallapati 4. NECK: Supple. No JVD. LUNGS: Clear to percussion and to auscultation. Good air exchange. No wheezing or rhonchi. HEART: S1, S2 regular. ABDOMEN: Soft and nontender. EXTREMITIES: No clubbing or cyanosis. 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 No focal deficit. Impressions: 1. Obstructive sleep apnea-hypopnea syndrome. Patient demonstrated great compliance with treatment, benefiting from treatment. 2. Coronary artery disease status post CABG and stent insertion. 3. Status post brain surgery for shunt in 1998. 4. Status post cholecystectomy in March 2020. 5. That was post right knee surgery. 6. Benign prostatic hypertrophy. 7. History of sinusitis. 8. Status post back surgery. 9. Emphysema. 10 status post bilateral cataract surgery 11. Status post tonsillectomy. 12. Status post appendectomy in the past Plan: 1. Continue using PAP equipment every night for the whole night. 2. To change air filter at least 1-2 times per month. 3. PAP unit should stay lower then position of the head. 4. Advised patient to remove all remaining water from humidifier canister daily and make it dry after each usage. Refill canister with fresh distilled water before each usage. 5. Sleep hygiene with regular time in bed for at least 8 hours. 6. Precautions related to driving. No driving if feel any sleepiness. 7. I will maintain prescription for PAP supplies including mask, tube, filters. 8. Follow up visit in 6 months or earlier if patient has any problems. 9. Watching weight. 10. To change air filter immediately. Thank you very much for allowing me to participate in the management of your patient. Ismael Aquino MD, PhD, FAASM. Diplomat of [place] Board [employer] Medicine, Sleep Medicine Board by [place] [employer] Engineer of [facility] [place]
== END ==
LOC: SLEEP 13:36
PROVIDERS: ATTEND Internal Medicine
DX: G47.33 Obstructive sleep apnea (adult) (pediatric) (principal); I25.10 Atherosclerotic heart disease of native coronary artery without angina pectoris; Z95.1 Presence of aortocoronary bypass graft; Z98.890 Other specified postprocedural states; Z90.49 Acquired absence of other specified parts of digestive tract; N40.0 Benign prostatic hyperplasia without lower urinary tract symptoms; J43.9 Emphysema, unspecified; Z90.09 Acquired absence of other part of head and neck; Z98.42 Cataract extraction status, left eye; Z98.41 Cataract extraction status, right eye; Z87.19 Personal history of other diseases of the digestive system; Z86.19 Personal history of other infectious and parasitic diseases; Z87.09 Personal history of other diseases of the respiratory system; Z79.01 Long term (current) use of anticoagulants; Z79.82 Long term (current) use of aspirin; Z99.89 Dependence on other enabling machines and devices; Z87.891 Personal history of nicotine dependence; Z88.2 Allergy status to sulfonamides

== ENCOUNTER 2021-08-08 13:02 | Inpatient (IN) | payer MEDICARE, BC ==
[2021-08-08] MEDS ORDERED: SODIUM CHLORIDE 0.9% 500 ML 500 ML IV STA (13:29)
--- NOTE | 2021-08-08 13:35 | ED ---
Weakness HPI - General Chief complaint: Weakness Stated complaint: weakness Time Seen by Provider: 08/08/21 13:21 Source: patient Mode of arrival: ambulatory Limitations: no limitations - History of Present Illness Initial comments: Patient complains of generalized weakness. His felt that earlier he had some trouble with comprehension speaking. Patient states that he sounds normal to himself. He has no paresthesias. He has no focal weakness. He has no belly or back pain. He had some tightness in the chest. He has no nausea or vomiting or diaphoresis. He was at work when this began. He is unaware of any specific sick contacts and has not traveled anywhere. He has not taken any medication for his nose. He was not doing anything exertional when this began. - Related Data Home Medications Medication Instructions Recorded Confirmed Aspirin [Adult Low Dose Aspirin EC] 81 mg PO HS 02/02/16 03/03/20 Finasteride [Proscar] 5 mg PO HS 02/02/16 03/03/20 Gabapentin [Neurontin] 300 - 600 mg PO Q8H 02/02/16 03/03/20 Niacinamide [Niacin] 1,000 mg PO DAILY@1200 02/02/16 03/03/20 Nitroglycerin Sl Tabs [Nitrostat] 0.4 mg SUBLINGUAL Q5M PRN 02/02/16 03/03/20 Omeprazole [PriLOSEC] 20 mg PO DAILY 02/02/16 03/03/20 Tamsulosin HCl [Flomax] 0.4 mg PO HS 02/02/16 03/03/20 Cetirizine HCl [Zyrtec] 10 mg PO DAILY@1200 09/12/17 03/03/20 Tolterodine Tartrate [Detrol LA] 4 mg PO AC-SUPPER 09/12/17 03/03/20 Ubidecarenone [Co Q-10] 100 mg PO HS 09/12/17 03/03/20 Calcium 500mg/Vit D3 400 Iu 1 tab PO BID 08/20/19 03/03/20 Cholecalciferol [Vitamin D3 (10 400 unit PO AC-SUPPER 08/20/19 03/03/20 Mcg = 400 Iu)] Pygeum 25mg &Saw [place] 80mg 2 cap PO AC-SUPPER 08/20/19 03/03/20 Triamcinolone Acetonide [Nasacort] 2 spray EA NOSTRIL HS 08/20/19 03/03/20 Metoprolol Tartrate [Lopressor] 25 mg PO BID-W/MEALS 02/22/20 03/03/20 Clopidogrel [Plavix] 75 mg PO DAILY 03/03/20 03/03/20 Previous Rx's Medication Instructions Recorded Atorvastatin [Lipitor] 80 mg PO DAILY #30 tab 08/22/19 Isosorbide Mononitrate ER [Imdur] 60 mg PO DAILY #30 tab.er.24h 12/26/19 amLODIPine [Norvasc] 5 mg PO DAILY #30 tab 02/23/20 Amoxicillin/Potassium Clav 1 tab PO Q12HR 1 Days #14 tab 03/09/20 [Augmentin 500-125 Tablet] HYDROcodone/APAP 5-325MG [[place] 1 each PO Q4HR PRN #12 tab 03/09/20 5-325] Allergies Allergy/AdvReac Type Severity Reaction Status Date / Time Sulfa (Sulfonamide Allergy Rash/Hives Verified 08/08/21 13:13 Antibiotics) Review of Systems ROS Statement: Those systems with pertinent positive or pertinent negative responses have been documented in the HPI. ROS Other: All systems not noted in ROS Statement are negative. Past Medical History Past Medical History: Coronary Artery Disease (CAD), Hyperlipidemia, Hypertension, Myocardial Infarction ([place]) Additional Past Medical History / Comment(s): blood pressure to be kept low for shunt. Last Myocardial Infarction Date:: 1993 History of Any Multi-Drug Resistant Organisms: None Reported Date of last positivie culture/infection: 2009 MDRO Source:: L elbow Past Surgical History: Back Surgery, Coronary Bypass/CABG, Heart Catheterization With Stent, Orthopedic Surgery, Tonsillectomy Additional Past Surgical History / Comment(s): brain shunt Past Anesthesia/Blood Transfusion Reactions: No Reported Reaction, Motion Sickness Additional Past Anesthesia/Blood Transfusion Reaction / Comment(s): Pt has clausterphobia. Date of Last Stent Placement:: 2017 Past Psychological History: No Psychological Hx Reported Smoking Status: Former smoker Past Alcohol Use History: None Reported Past Drug Use History: None Reported - Past Family History Father Family Medical History: Diabetes Mellitus, Myocardial Infarction ([place]) Additional Family Medical History / Comment(s): heart attack 86 Mother Family Medical History: CVA/TIA Additional Family Medical History / Comment(s): of stroke General Exam Limitations: no limitations General appearance: alert, in no apparent distress Head exam: Present: atraumatic, normocephalic, normal inspection Eye exam: Present: normal appearance, PERRL, EOMI. Absent: scleral icterus, conjunctival injection, periorbital swelling ENT exam: Present: normal exam, mucous membranes moist Neck exam: Present: normal inspection. Absent: tenderness, meningismus, lymphadenopathy Respiratory exam: Present: normal lung sounds bilaterally. Absent: respiratory distress, wheezes, rales, rhonchi, stridor Cardiovascular Exam: Present: regular rate, normal rhythm, normal heart sounds. Absent: systolic murmur, diastolic murmur, rubs, gallop, clicks GI/Abdominal exam: Present: soft, normal bowel sounds. Absent: distended, tenderness, guarding, rebound, rigid Extremities exam: Present: normal inspection, full ROM, normal capillary refill. Absent: tenderness, pedal edema, joint swelling, calf tenderness Back exam: Present: normal inspection Neurological exam: Present: alert, oriented X3, CN II-XII intact Psychiatric exam: Present: normal affect, normal mood Skin exam: Present: warm, dry, intact, normal color. Absent: rash Course Vital Signs 08/08/21 13:08 Temperature 98.2 F Pulse Rate 72 Respiratory 18 Rate Blood Pressure 90/48 O2 Sat by Pulse 95 Oximetry EKG Findings - EKG Comments: EKG Findings:: Twelve-lead EKG shows ventricular rate 71 bpm, normal MT interval, positive for right bundle-branch block, no ST elevation or depression, interpreted by me as sinus rhythm. Medical Decision Making - Medical Decision Making Patient's laboratory studies returned, interpreted by me is very low sodium. He is given IV fluids. He will be admitted to the hospital. - Lab Data Result diagrams: 08/08/21 13:15 08/08/21 13:15 Lab Results 08/08/21 08/08/21 08/08/21 Range/Units 13:15 13:15 13:15 WBC 9.6 (3.8-10.6) k/uL RBC 4.09 L (4.30-5.90) m/uL Hgb 13.5 (13.0-17.5) gm/dL Hct 38.5 L (39.0-53.0) % MCV 94.1 (80.0-100.0) fL MCH 32.9 (25.0-35.0) pg MCHC 35.0 (31.0-37.0) g/dL RDW 12.1 (11.5-15.5) % Plt Count 185 (150-450) k/uL MPV 7.3 Neutrophils % 74 % Lymphocytes % 14 % Monocytes % 9 % Eosinophils % 1 % Basophils % 0 % Neutrophils # 7.1 (1.3-7.7) k/uL Lymphocytes # 1.3 (1.0-4.8) k/uL Monocytes # 0.8 (0-1.0) k/uL Eosinophils # 0.1 (0-0.7) k/uL Basophils # 0.0 (0-0.2) k/uL PT 10.4 (9.0-12.0) sec INR 0.9 (<1.2) APTT 24.6 (22.0-30.0) sec Sodium 118 L* (137-145) mmol/L Potassium 5.0 (3.5-5.1) mmol/L Chloride 87 L (98-107) mmol/L Carbon Dioxide 23 (22-30) mmol/L Anion Gap 8 mmol/L BUN 25 H (9-20) mg/dL Creatinine 1.20 (0.66-1.25) mg/dL Est GFR (CKD-EPI)AfAm 65 (>60 ml/min/1.73 sqM) Est GFR (CKD-EPI)NonAf 56 (>60 ml/min/1.73 sqM) Glucose 110 H (74-99) mg/dL Plasma Lactic Acid Alfred[place] (0.7-2.0) mmol/L Calcium 9.0 (8.4-10.2) mg/dL Magnesium 2.0 (1.6-2.3) mg/dL Total Bilirubin 1.0 (0.2-1.3) mg/dL AST 47 (17-59) U/L ALT 35 (4-49) U/L Alkaline Phosphatase 54 (38-126) U/L Troponin I (0.000-0.034) ng/mL Total Protein 6.8 (6.3-8.2) g/dL Albumin 4.3 (3.5-5.0) g/dL 08/08/21 08/08/21 Range/Units 13:15 13:38 WBC (3.8-10.6) k/uL RBC (4.30-5.90) m/uL Hgb (13.0-17.5) gm/dL Hct (39.0-53.0) % MCV (80.0-100.0) fL MCH (25.0-35.0) pg MCHC (31.0-37.0) g/dL RDW (11.5-15.5) % Plt Count (150-450) k/uL MPV Neutrophils % % Lymphocytes % % Monocytes % % Eosinophils % % Basophils % % Neutrophils # (1.3-7.7) k/uL Lymphocytes # (1.0-4.8) k/uL Monocytes # (0-1.0) k/uL Eosinophils # (0-0.7) k/uL Basophils # (0-0.2) k/uL PT (9.0-12.0) sec INR (<1.2) APTT (22.0-30.0) sec Sodium (137-145) mmol/L Potassium (3.5-5.1) mmol/L Chloride (98-107) mmol/L Carbon Dioxide (22-30) mmol/L Anion Gap mmol/L BUN (9-20) mg/dL Creatinine (0.66-1.25) mg/dL Est GFR (CKD-EPI)AfAm (>60 ml/min/1.73 sqM) Est GFR (CKD-EPI)NonAf (>60 ml/min/1.73 sqM) Glucose (74-99) mg/dL Plasma Lactic Acid Alfred[place] 0.7 (0.7-2.0) mmol/L Calcium (8.4-10.2) mg/dL Magnesium (1.6-2.3) mg/dL Total Bilirubin (0.2-1.3) mg/dL AST (17-59) U/L ALT (4-49) U/L Alkaline Phosphatase (38-126) U/L Troponin I <0.012 (0.000-0.034) ng/mL Total Protein (6.3-8.2) g/dL Albumin (3.5-5.0) g/dL Disposition Clinical Impression: Hyponatremia Disposition: ADMITTED IP TO THIS [facility] Condition: Fair Is patient prescribed a controlled substance at d/c from ED?: No Referrals: Alfonso Urban DO [Primary Care Provider] - 1-2 days
[2021-08-08 13:43] LABS: Basophils % (A) 0 %; Eosinophils # (A) 0.1 k/uL (0-0.7); Eosinophils % (A) 1 %; HCT 38.5 % (39.0-53.0); HGB 13.5 gm/dL (13.0-17.5); Lymphocytes # (A) 1.3 k/uL (1.0-4.8); Lymphocytes % (A) 14 %; MCH 32.9 pg (25.0-35.0); MCV 94.1 fL (80.0-100.0); Mean Platelet Volume 7.3; Monocytes # (A) 0.8 k/uL (0-1.0); Monocytes % (A) 9 %; Neutrophils # (A) 7.1 k/uL (1.3-7.7); Neutrophils % (A) 74 %; Platelet Count 185 k/uL (150-450); RBC 4.09 m/uL (4.30-5.90); RDW 12.1 % (11.5-15.5); WBC 9.6 k/uL (3.8-10.6)
[2021-08-08 13:52] LABS: Albumin 4.3 g/dL (3.5-5.0); Total Protein 6.8 g/dL (6.3-8.2)
[2021-08-08 13:55] LABS: INR 0.9 (<1.2); Partial Thromboplastin Time 24.6 sec (22.0-30.0); Prothrombin Time 10.4 sec (9.0-12.0)
--- NOTE | 2021-08-08 14:06 | XR ---
EXAMINATION TYPE: XR chest 2V DATE OF EXAM: 08/08/2021 COMPARISON: 02/22/2020 TECHNIQUE: PA and lateral views submitted. HISTORY: Weakness FINDINGS: The lungs are clear and there is no pneumothorax, pleural effusion, or focal pneumonia. Postsurgica l changes noted. Heart size normal. Atherosclerotic change aorta. 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 No overt fa ilure. Previous vertebral plasty lower vertebral thoracic column. Degenerative change of the spine. IMPRESSION: 1. No acute process.
--- NOTE | 2021-08-08 14:13 | CT ---
EXAMINATION TYPE: CT brain wo con DATE OF EXAM: 08/08/2021 COMPARISON: CT dated 05/24/2021 HISTORY: Weakness CT DLP: 1115.4 mGycm Automated exposure control for dose reduction was used. TECHNIQUE: CT scan of the brain is performed without IV contrast administration. FINDINGS: Brain volume loss changes, likely age-related. Bilateral cerebral white matter hypodensities, likely representing chronic microvascular ischemic changes. Right transparietal SLIVER LAP MACHINE TENDER shunt, unchanged in posit ion. Stable ventricular size. Scattered arterial atherosclerotic calcifications. No acute intracranial hemorrhage. No gross acute cortical infarct. No midline shift or herniation. Un remarkable basal cisterns, sella and CP angles. No gross space-occupying lesion, vasogenic edema or m ass effect. Unremarkable orbits. Clear visualized paranasal sinuses and mastoid air cells. Osteopenia. Degenerati ve changes of the right TMJ. IMPRESSION: No acute intracranial abnormality or gross space-occupying lesion by this nonenhanced CT scan. Chroni c and incidental findings as described above.
[2021-08-08 16:19] LABS: Appearance,Urine Clear (Clear); Bilirubin,Urine Negative (Negative); Blood,Urine Negative (Negative); Color,Urine Yellow; Glucose,Urine (UA) Negative (Negative); Ketones,Urine Negative (Negative); Leukocyte Esterase,Urine Negative (Negative); Nitrite,Urine Negative (Negative); Protein,Urine Negative (Negative); Specific Gravity,Urine 1.014 (1.001-1.035); Urobilinogen,Urine <2.0 mg/dL (<2.0)
[2021-08-08] MEDS ORDERED: NALOXONE 0.4 MG/ML 1 ML VIAL IV PRN (16:23)
[2021-08-08] MEDS ORDERED: ONDANSETRON 4 MG/2 ML VIAL IVP PRN (16:23)
[2021-08-08] MEDS ORDERED: TEMAZEPAM 15 MG CAP PO PRN (16:23)
[2021-08-08] MEDS ORDERED: MAG HYDROX/AL HYDROX/SIMETH 30 ML CUP PO PRN (16:23)
[2021-08-08] MEDS ORDERED: LORATADINE 10 MG TAB PO PRN (16:25)
[2021-08-08] MEDS ORDERED: NITROGLYCERIN SL TABS 0.4 MG TAB SUBLINGUAL PRN (16:25)
[2021-08-08] MEDS: CHOLECALCIFEROL 10 MCG (400 IU) TABLET PO SCH (17:36)
[2021-08-08] MEDS: OXYBUTYNIN 10 MG TAB.ER.24 PO SCH (17:36)
[2021-08-08] MEDS: METOPROLOL TARTRATE 25 MG TAB PO SCH (17:36)
[2021-08-08] MEDS ORDERED: DESMOPRESSIN 0.2 MG TAB PO SCH (21:00)
[2021-08-08] MEDS: FLUTICASONE 50MCG/SPRAY NASAL 16GM EA NOSTRIL SCH (22:21)
[2021-08-08] MEDS: CALCIUM CARB-VIT D 500 MG-5 MCG TAB PO SCH (22:21)
[2021-08-08] MEDS: ATORVASTATIN 80 MG TAB PO SCH (22:21)
[2021-08-09] MEDS ORDERED: SODIUM CHLORIDE 0.9% 1,000 ML IV SCH ×2 (08:15→11:30)
[2021-08-09] MEDS ORDERED: NON FORMULARY DRUG (Ubidecarenone [Co Q-10] 300 MG Capsule) PO SCH (09:00)
[2021-08-09] MEDS: CALCIUM CARB-VIT D 500 MG-5 MCG TAB PO SCH ×2 (09:51→21:07)
[2021-08-09] MEDS: PANTOPRAZOLE 40 MG TABLET PO SCH (09:51)
[2021-08-09] MEDS: CLOPIDOGREL 75 MG TAB PO SCH (09:51)
[2021-08-09] MEDS: FINASTERIDE 5 MG TAB PO SCH (09:51)
[2021-08-09] MEDS: ISOSORBIDE MONONITRATE ER 60 MG TAB.ER.24H PO SCH (09:51)
[2021-08-09] MEDS: ASPIRIN 81 MG PO SCH (09:51)
[2021-08-09] MEDS: METOPROLOL TARTRATE 25 MG TAB PO SCH ×2 (09:51→15:29)
[2021-08-09] MEDS: TAMSULOSIN 0.4 MG CAP.ER.24H PO SCH (09:51)
[2021-08-09 10:59] LABS: Calcium 9.3 mg/dL (8.4-10.2); Magnesium 2.1 mg/dL (1.6-2.3); Potassium 4.2 mmol/L (3.5-5.1)
[2021-08-09] MEDS ORDERED: DEXTROSE 5% IN WATER 1,000 ML IV ONE (11:17)
[2021-08-09] MEDS ORDERED: ONDANSETRON 4 MG/2 ML VIAL IVP PRN (11:32)
--- NOTE | 2021-08-09 11:56 | P.NPCON ---
History of Present Illness - Reason for Consult hyponatremia - History of Present Illness Reason for consultation: Hyponatremia History of present illness: Patient is a 81-year-old male seen in renal consultation for hyponatremia. Patient's sodium level was 118 on admission and up to 129 this morning. I was not notified of the consultation and I had ordered stat labs this morning which showed a sodium level of 129. He's currently receiving normal saline at 125 mL an hour. Patient states he works at [employer] and felt weak at work and went home early. Once he got home he still didn't feel well and family advised him to go to the hospital. I do note DDAVP and his home medication list as patient is unsure of this medication and doesn't recall if he actually takes it or not. Patient did receive a liter of normal saline bolus on admission as well. I have stopped his normal saline and started D5W at 100 mL an hour. He denies any history of malignancy. I don't see any diuretics and his home medication list. He denies vomiting or diarrhea. Denies excessive fluid intake. States oral in take has been fair. No fever or chills. He does admit to taking Advil if needed for pain. No history of kidney disease. GFR is at baseline with creatinine at 0.98 today. Vital signs are stable. General: Awake. No acute distress. HEENT: Head exam is unremarkable. LUNGS: Breath sounds decreased. HEART: Rate and Rhythm are regular. ABDOMEN: Soft, no distention. EXTREMITITES: No edema. Past Medical History Past Medical History: Coronary Artery Disease (CAD), Hyperlipidemia, Hypertension, Myocardial Infarction ([place]) Additional Past Medical History / Comment(s): blood pressure to be kept low for shunt. Last Myocardial Infarction Date:: 1993 History of Any Multi-Drug Resistant Organisms: None Reported Date of last positivie culture/infection: 2009 MDRO Source:: L elbow Past Surgical History: Back Surgery, Coronary Bypass/CABG, Heart Catheterization With Stent, Orthopedic Surgery, Tonsillectomy Additional Past Surgical History / Comment(s): brain shunt Past Anesthesia/Blood Transfusion Reactions: No Reported Reaction, Motion Sickness Additional Past Anesthesia/Blood Transfusion Reaction / Comment(s): Pt has clausterphobia. Date of Last Stent Placement:: 2017 Smoking Status: Former smoker - Past Family History Father Family Medical History: Diabetes Mellitus, Myocardial Infarction ([place]) Additional Family Medical History / Comment(s): heart attack 86 Mother Family Medical History: CVA/TIA Additional Family Medical History / Comment(s): of stroke Medications and Allergies Home Medications Medication Instructions Recorded Confirmed Type Aspirin [Adult Low Dose Aspirin EC] 81 mg PO DAILY 02/02/16 08/08/21 History Finasteride [Proscar] 5 mg PO DAILY 02/02/16 08/08/21 History Gabapentin [Neurontin] 300 - 600 mg PO Q8H 02/02/16 08/08/21 History Niacinamide [Niacin] 1,000 mg PO DAILY@1200 02/02/16 08/08/21 History Nitroglycerin Sl Tabs [Nitrostat] 0.4 mg SUBLINGUAL Q5M PRN 02/02/16 08/08/21 History Omeprazole [PriLOSEC] 20 mg PO DAILY 02/02/16 08/08/21 History Tamsulosin HCl [Flomax] 0.4 mg PO DAILY 02/02/16 08/08/21 History Cetirizine HCl [Zyrtec] 10 mg PO DAILY@1200 PRN 09/12/17 08/08/21 History Tolterodine Tartrate [Detrol LA] 4 mg PO AC-SUPPER 09/12/17 08/08/21 History Ubidecarenone [Co Q-10] 300 mg PO DAILY 09/12/17 08/08/21 History Calcium 500mg/Vit D3 400 Iu 1 tab PO BID 08/20/19 08/08/21 History Cholecalciferol [Vitamin D3 (10 400 unit PO AC-SUPPER 08/20/19 08/08/21 History Mcg = 400 Iu)] Pygeum 25mg &Saw [place] 80mg 2 cap PO AC-SUPPER 08/20/19 08/08/21 History Triamcinolone Acetonide [Nasacort] 2 spray EA NOSTRIL HS 08/20/19 08/08/21 History Isosorbide Mononitrate ER [Imdur] 60 mg PO DAILY #30 tab.er.24h 12/26/19 08/08/21 Rx Metoprolol Tartrate [Lopressor] 25 mg PO BID-W/MEALS 02/22/20 08/08/21 History Clopidogrel [Plavix] 75 mg PO DAILY 03/03/20 08/08/21 History Atorvastatin [Lipitor] 80 mg PO HS 08/08/21 08/08/21 History Desmopressin [Ddavp] 0.4 mg PO HS 08/08/21 08/08/21 History Allergies Allergy/AdvReac Type Severity Reaction Status Date / Time Sulfa (Sulfonamide Allergy Rash/Hives Verified 08/08/21 14:53 Antibiotics) Physical Exam Vitals: Vital Signs Temp Pulse Resp BP Pulse Ox 08/09/21 07:26 70 18 138/59 98 08/09/21 04:49 62 18 144/65 94 L 08/08/21 22:13 71 18 167/74 94 L 08/08/21 18:48 79 15 144/62 99 08/08/21 17:40 80 17 170/95 95 08/08/21 16:01 62 17 140/65 98 08/08/21 13:08 98.2 F 72 18 90/48 95 Intake and Output 08/08/21 08/09/21 08/09/21 22:59 06:59 14:59 Other: Weight 72.575 kg Results - Lab Results Most recent lab results Calcium 9.3 mg/dL (8.4-10.2) 08/09/21 10:23 Magnesium 2.1 mg/dL (1.6-2.3) 08/09/21 10:23 08/08/21 13:15 08/09/21 10:23 Assessment and Plan Plan: Assessment: 1. Hypovolemic hyponatremia further worsened with the use of vasopressin. Rapidly corrected with normal saline. Sodium level 118 on admission and is 129 this morning. 2. Mild acute kidney injury mostly prerenal improved with IV hydration. Creatinine was 1.2 on admission and is 0.98 today. UA benign. 3. Metabolic acidosis secondary to IV fluids. Plan: IV fluids changed from normal saline to D5W at 100 mL an hour. Repeat sodium level in 4 hours. Check serum and urine osmolality and urine sodium level. Check TSH. Hold desmopressin for now. Thank you for the consultation. I will continue to follow the patient with you during his hospital stay.
--- NOTE | 2021-08-09 14:12 | P.HPIM ---
History of Present Illness H&P Date: 08/09/21 Chief Complaint: Weakness, lethargy This is a pleasant 81-year-old gentleman with past medical history of CAD, history of [place], CABG, angina, recent cardiac catheterization in August 2019, CVA/TIA, 1999 brain shunt,diabetes mellitus, gastroesophageal reflux disease, hypertension, sleep apnea, degenerative joint disease with chronic back pain, back surgery, former smoker, former alcohol use and multiple other medical issues presented to the ER with significant weakness, lethargy, had reported patient stumbling, wobbly and mumbling at home, sustained a fall, unsure if he hit his head. Denies chest pain, palpitations or shortness of breath. Denies nausea or vomiting. Denies abdominal pain. Patient works at [employer] and had not been drinking much water while temperatures were in the 90s. Sodium on admission 118, potassium 5, chloride 87, bicarb 23, BUN 25, creat inine 1.2, glucose 110 , lactic acid 0.7, magnesium 2. Afebrile, normal WBC, hemoglobin 13.5, platelets 185, INR 0.9 .UA negative.coronavirus not detected. Brain CT revealed no acute intracranial abnormality or gross space-occupying lesion. Chest x-ray reported no acute process. EKG reported sinus rhythm with left bundle branch block, troponins negative 3. IV fluids initiated. Review of Systems ROS Statement: Those systems with pertinent positive or pertinent negative responses have been documented in the HPI. ROS Other: All systems not noted in ROS Statement are negative. Past Medical History Past Medical History: Coronary Artery Disease (CAD), Hyperlipidemia, Hypertension, Myocardial Infarction ([place]) Additional Past Medical History / Comment(s): blood pressure to be kept low for shunt. Last Myocardial Infarction Date:: 1993 History of Any Multi-Drug Resistant Organisms: None Reported Date of last positivie culture/infection: 2009 MDRO Source:: L elbow Past Surgical History: Back Surgery, Coronary Bypass/CABG, Heart Catheterization With Stent, Orthopedic Surgery, Tonsillectomy Additional Past Surgical History / Comment(s): brain shunt Past Anesthesia/Blood Transfusion Reactions: No Reported Reaction, Motion Sickness Additional Past Anesthesia/Blood Transfusion Reaction / Comment(s): Pt has clausterphobia. Date of Last Stent Placement:: 2017 Smoking Status: Former smoker - Past Family History Father Family Medical History: Diabetes Mellitus, Myocardial Infarction ([place]) Additional Family Medical History / Comment(s): heart attack 86 Mother Family Medical History: CVA/TIA Additional Family Medical History / Comment(s): of stroke Medications and Allergies Home Medications Medication Instructions Recorded Confirmed Type Aspirin [Adult Low Dose Aspirin EC] 81 mg PO DAILY 02/02/16 08/08/21 History Finasteride [Proscar] 5 mg PO DAILY 02/02/16 08/08/21 History Gabapentin [Neurontin] 300 - 600 mg PO Q8H 02/02/16 08/08/21 History Niacinamide [Niacin] 1,000 mg PO DAILY@1200 02/02/16 08/08/21 History Nitroglycerin Sl Tabs [Nitrostat] 0.4 mg SUBLINGUAL Q5M PRN 02/02/16 08/08/21 History Omeprazole [PriLOSEC] 20 mg PO DAILY 02/02/16 08/08/21 History Tamsulosin HCl [Flomax] 0.4 mg PO DAILY 02/02/16 08/08/21 History Cetirizine HCl [Zyrtec] 10 mg PO DAILY@1200 PRN 09/12/17 08/08/21 History Tolterodine Tartrate [Detrol LA] 4 mg PO AC-SUPPER 09/12/17 08/08/21 History Ubidecarenone [Co Q-10] 300 mg PO DAILY 09/12/17 08/08/21 History Calcium 500mg/Vit D3 400 Iu 1 tab PO BID 08/20/19 08/08/21 History Cholecalciferol [Vitamin D3 (10 400 unit PO AC-SUPPER 08/20/19 08/08/21 History Mcg = 400 Iu)] Pygeum 25mg &Saw [place] 80mg 2 cap PO AC-SUPPER 08/20/19 08/08/21 History Triamcinolone Acetonide [Nasacort] 2 spray EA NOSTRIL HS 08/20/19 08/08/21 History Isosorbide Mononitrate ER [Imdur] 60 mg PO DAILY #30 tab.er.24h 12/26/19 08/08/21 Rx Metoprolol Tartrate [Lopressor] 25 mg PO BID-W/MEALS 02/22/20 08/08/21 History Clopidogrel [Plavix] 75 mg PO DAILY 03/03/20 08/08/21 History Atorvastatin [Lipitor] 80 mg PO HS 08/08/21 08/08/21 History Desmopressin [Ddavp] 0.4 mg PO HS 08/08/21 08/08/21 History Allergies Allergy/AdvReac Type Severity Reaction Status Date / Time Sulfa (Sulfonamide Allergy Rash/Hives Verified 08/08/21 14:53 Antibiotics) Physical Exam Vitals: Vital Signs Pulse Resp BP Pulse Ox 08/09/21 07:26 70 18 138/59 98 08/09/21 04:49 62 18 144/65 94 L 08/08/21 22:13 71 18 167/74 94 L 08/08/21 18:48 79 15 144/62 99 08/08/21 17:40 80 17 170/95 95 08/08/21 16:01 62 17 140/65 98 Intake and Output 08/08/21 08/09/21 08/09/21 22:59 06:59 14:59 Other: Weight 72.575 kg PHYSICAL EXAM: VITAL SIGNS: As above GENERAL: Sitting up , no acute distress HEENT: Conjunctivae normal. eyes normal. Mucosa dry NECK: No JVD. No thyroid enlargement. CARDIOVASCULAR: S1, S2 regular. Systolic murmur RESPIRATION: Breath sounds diminished in the bases. No rhonchi or crackles. No b ronchial breathing. ABDOMEN: Soft, right upper quadrant tenderness .No guarding. no masses palpabl e. No ascites, No hepatosplenomegaly.Bowel sounds heard. LEGS: No edema. no swelling PSYCHIATRY: Alert and oriented X3, mood and affect normal. NERVOUS SYSTEM: Cranial N 2-12 grossly normal. Moves all 4 limbs. No focal deficits. Strength and sensation grossly intact. Skin: Warm and dry, no rash Results CBC & Chem 7: 08/08/21 13:15 08/09/21 10:23 Labs: Abnormal Lab Results - Last 24 Hours (Table) 08/08/21 08/08/21 08/09/21 Range/Units 13:15 13:15 10:23 RBC 4.09 L (4.30-5.90) m/uL Hct 38.5 L (39.0-53.0) % Sodium 118 L* 129 L (137-145) mmol/L Chloride 87 L 96 L (98-107) mmol/L Carbon Dioxide 21 L (22-30) mmol/L BUN 25 H 21 H (9-20) mg/dL Glucose 110 H 118 H (74-99) mg/dL Osmolality (280-301) mosm/kg 08/09/21 Range/Units 10:23 RBC (4.30-5.90) m/uL Hct (39.0-53.0) % Sodium (137-145) mmol/L Chloride (98-107) mmol/L Carbon Dioxide (22-30) mmol/L BUN (9-20) mg/dL Glucose (74-99) mg/dL Osmolality 276 L (280-301) mosm/kg Assessment and Plan Assessment: Hyponatremia, hypovolemic, related to decreased and recently placed on desmopressin on 07/25/21. Acute renal failure, secondary to the above, Hypertension Diabetes mellitus Gastroesophageal reflux disease History of CABG, history of [place] History of CVA, TIA, brain shunt 1999 DJD with chronic back pain, history of back surgery Hypertension Hyperlipidemia History of nicotine dependence History of alcohol use Hospital course: Continue on current medication regime, monitoring and symptomatic treatment. Hold desmopressin, obtain urology records from recent visit. IV fluids ordered this morning. Nephrology consulted. PPI ordered for GI prophylaxis. Repeat labs ordered. Close monitoring of sodium. The impression and plan of care has been dictated as directed. : I performed a history and examination of this patient, discussed the same with the dictator. I agree with the dictator's note ,documented as a scribe. Any additional findings or plans will be noted.
[2021-08-09] MEDS: ACETAMINOPHEN TAB 325 MG TAB PO PRN (15:25)
[2021-08-09] MEDS: NIACIN TR 500 MG CAPLET PO SCH (17:23)
[2021-08-09] MEDS: OXYBUTYNIN 10 MG TAB.ER.24 PO SCH (17:23)
[2021-08-09] MEDS: CHOLECALCIFEROL 10 MCG (400 IU) TABLET PO SCH (17:24)
[2021-08-09] MEDS: ATORVASTATIN 80 MG TAB PO SCH (21:08)
[2021-08-09] MEDS: FLUTICASONE 50MCG/SPRAY NASAL 16GM EA NOSTRIL SCH (21:09)
[2021-08-10] MEDS: ACETAMINOPHEN TAB 325 MG TAB PO PRN (00:16)
[2021-08-10] MEDS: PANTOPRAZOLE 40 MG TABLET PO SCH (06:18)
[2021-08-10] MEDS: METOPROLOL TARTRATE 25 MG TAB PO SCH ×2 (06:18→17:32)
--- NOTE | 2021-08-10 09:30 | P.PN ---
Subjective Patient is seen in follow-up for hyponatremia. Patient received D5W yesterday to reverse the rapid correction of hyponatremia. Sodium level was 125 as of yesterday afternoon. Currently off IV fluids. Oral intake fair. Denies chest pain or shortness of breath. Vital signs are stable. General: Awake and alert. No acute distress. HEENT: Head exam is unremarkable. LUNGS: Breath sounds decreased. HEART: Rate and Rhythm are regular. ABDOMEN: Soft, no distention. EXTREMITITES: No edema. Objective - Vital Signs Vital signs: Vital Signs Temp 97.6 F 08/10/21 04:00 Pulse 66 08/10/21 04:00 Resp 16 08/10/21 04:00 BP 140/67 08/10/21 04:00 Pulse Ox 95 08/10/21 04:00 FiO2 Intake & Output 08/09/21 08/10/21 08/10/21 18:59 06:59 18:59 Intake Total 240 540 180 Output Total 0 Balance 240 540 180 Intake: Oral 240 540 180 Output: Gastric Drainage 0 Urine 0 Stool 0 Urine/Stool Mix 0 Oral Regurgitation 0 Other: Voiding Method Toilet Urinal # Voids 1 1 # Bowel Movements 0 - Labs CBC & Chem 7: 08/08/21 13:15 08/09/21 16:37 Labs: Abnormal Lab Results - Last 24 Hours (Table) 08/09/21 08/09/21 08/09/21 Range/Units 10:23 10:23 16:37 Sodium 129 L 125 L (137-145) mmol/L Chloride 96 L (98-107) mmol/L Carbon Dioxide 21 L (22-30) mmol/L BUN 21 H (9-20) mg/dL Glucose 118 H (74-99) mg/dL Osmolality 276 L (280-301) mosm/kg Assessment and Plan Plan: Assessment: 1. Hypovolemic hyponatremia further worsened with the use of vasopressin. Rapidly corrected with normal saline. Status post D5W to reverse correction. Sodium level 125 yesterday evening. Urine osmolality 728. 2. Mild acute kidney injury mostly prerenal improved with IV hydration. Creatinine 0.98 yesterday. UA benign. 3. Metabolic acidosis secondary to IV fluids. Plan: Currently off IV fluids. Encouraged oral intake. Morning labs pending. Check serum and urine osmolality and urine sodium level. Follow-up TSH. Hold desmopressin for now.
[2021-08-10] MEDS: CALCIUM CARB-VIT D 500 MG-5 MCG TAB PO SCH ×2 (10:09→20:45)
[2021-08-10] MEDS: FINASTERIDE 5 MG TAB PO SCH (10:09)
[2021-08-10] MEDS: ISOSORBIDE MONONITRATE ER 60 MG TAB.ER.24H PO SCH (10:09)
[2021-08-10] MEDS: ASPIRIN 81 MG PO SCH (10:10)
[2021-08-10] MEDS: TAMSULOSIN 0.4 MG CAP.ER.24H PO SCH (10:10)
[2021-08-10] MEDS: CLOPIDOGREL 75 MG TAB PO SCH (10:10)
[2021-08-10 10:35] LABS: African American GFR (CKD) >90 (>60 ml/min/1.73 sqM); Anion Gap 10 mmol/L; Blood Urea Nitrogen 12 mg/dL (9-20); Calcium 9.2 mg/dL (8.4-10.2); Carbon Dioxide 23 mmol/L (22-30); Chloride 91 mmol/L (98-107); Glucose 129 mg/dL (74-99); Magnesium 1.8 mg/dL (1.6-2.3); Non-African American GFR(CKD) 78 (>60 ml/min/1.73 sqM); Potassium 4.7 mmol/L (3.5-5.1); Sodium 124 mmol/L (137-145)
[2021-08-10] MEDS: NIACIN TR 500 MG CAPLET PO SCH (12:00)
--- NOTE | 2021-08-10 13:56 | P.PN ---
Subjective Progress Note Date: 08/10/21 This is a pleasant 81-year-old gentleman with past medical history of CAD, history of [place], CABG, angina, recent cardiac catheterization in August 2019, CVA/TIA, 1999 brain shunt,diabetes mellitus, gastroesophageal reflux disease, hypertension, sleep apnea, degenerative joint disease with chronic back pain, b ack surgery, former smoker, former alcohol use and multiple other medical issues presented to the ER with significant weakness, lethargy, had reported patient stumbling, wobbly and mumbling at home, sustained a fall, unsure if he hit his head. Denies chest pain, palpitations or shortness of breath. Denies nausea or vomiting. Denies abdominal pain. Patient works at [employer] and had not been drinking much water while temperatures were in the 90s. Sodium on admission 118, potassium 5, chloride 87, bicarb 23, BUN 25, creatinine 1.2, glucose 110 , lactic acid 0.7, magnesium 2. Afebrile, normal WBC, hemoglobin 13.5, platelets 185, INR 0.9 .UA negative.coronavirus not detected. Brain CT r evealed no acute intracranial abnormality or gross space-occupying lesion. Chest x-ray reported no acute process. EKG reported sinus rhythm with left bundle branch block, troponins negative 3. IV fluids initiated. 08/10/2021 home medication desmopressin discontinued .received D5 yesterday, sodium level decreased to 125 yesterday afternoon, a.m. level pending. IV fluids currently off. Consumes 100% of dinner, denies nausea vomiting or further diarrhea. Denies abdominal pain. Denies chest pain, palpitations or shortness of breath. Reports he has been up ambulating to the bathroom, tole rated exertion well. Denies lightheadedness, dizziness or focal deficits. Maintaining O2 sats in the high 90s on room air, VSS. Urine osmolality 728, random sodium 47. Objective - Vital Signs Vital signs: Vital Signs Temp 97.6 F 08/10/21 09:51 Pulse 63 08/10/21 09:55 Resp 17 08/10/21 09:55 BP 131/61 08/10/21 09:51 Pulse Ox 98 08/10/21 09:51 FiO2 Intake & Output 08/09/21 08/10/21 08/10/21 18:59 06:59 18:59 Intake Total 240 540 180 Output Total 0 100 Balance 240 540 80 Intake: Oral 240 540 180 Output: Gastric Drainage 0 Urine 0 100 Stool 0 Urine/Stool Mix 0 Oral Regurgitation 0 Other: Voiding Method Toilet Toilet Urinal Urinal # Voids 1 1 1 # Bowel Movements 0 - Exam PHYSICAL EXAM: VITAL SIGNS: As above GENERAL: Alert and oriented 3, Sitting up in bed, no acute distress HEENT: Conjunctivae normal. eyes normal. MMM. NECK: Supple, No JVD. CARDIOVASCULAR: S1, S2 regular. Systolic murmur RESPIRATION: Breath sounds diminished in the bases. No rhonchi or crackles. ABDOMEN: Soft, nontender.No guarding. no masses palpable. Bowel sounds heard. LEGS: No edema. no swelling NERVOUS SYSTEM: Cranial N 2-12 grossly normal. No focal deficits. Strength and sensation grossly intact. Skin: Warm and dry, no rash - Labs CBC & Chem 7: 08/08/21 13:15 08/10/21 09:19 Labs: Abnormal Lab Results - Last 24 Hours (Table) 08/09/21 08/10/21 Range/Units 16:37 09:19 Sodium 125 L 124 L (137-145) mmol/L Chloride 91 L (98-107) mmol/L Glucose 129 H (74-99) mg/dL Assessment and Plan Assessment: Hyponatremia, hypovolemic, related to decreased oral intake and recently placed on desmopressin on 07/25/21. Acute renal failure, secondary to the above, Metabolic acidosis secondary to IV fluids Hypertension Diabetes mellitus Gastroesophageal reflux disease History of CABG, history of [place] History of CVA, TIA, brain shunt 1998 DJD with chronic back pain, history of back surgery Hypertension Hyperlipidemia History of nicotine dependence History of alcohol use Hospital course: Continue on current medication regime, monitoring and symptomatic treatment. Discharge planning in progress for today pending improvement in a.m. sodium level, nephrology clearance. Close monitoring of sodium levels. Patient has been advised to remain off work until he follows up in the office on Saturday with PCP for clearance. The impression and plan of care has been dictated as directed. : I performed a history and examination of this patient, discussed the same with the dictator. I agree with the dictator's note ,documented as a scribe. Any additional findings or plans will be noted.
[2021-08-10] MEDS ORDERED: TOLVAPTAN 15 MG 1/2 TABLET PO ONE (15:00)
[2021-08-10] MEDS: OXYBUTYNIN 10 MG TAB.ER.24 PO SCH (17:35)
[2021-08-10] MEDS: CHOLECALCIFEROL 10 MCG (400 IU) TABLET PO SCH (17:35)
[2021-08-10] MEDS: FLUTICASONE 50MCG/SPRAY NASAL 16GM EA NOSTRIL SCH (20:45)
[2021-08-10] MEDS: ATORVASTATIN 80 MG TAB PO SCH (20:45)
[2021-08-11 04:07] VITALS: RESP 16
[2021-08-11] MEDS: METOPROLOL TARTRATE 25 MG TAB PO SCH (06:16)
[2021-08-11] MEDS: PANTOPRAZOLE 40 MG TABLET PO SCH (06:16)
--- NOTE | 2021-08-11 08:32 | P.PN ---
Subjective Patient is seen in follow-up for hyponatremia. Sodium level 124 yesterday. He did receive a dose of Samsca yesterday. Off IV fluids. Oral intake fair. Denies chest pain or shortness of breath. Hemodynamically stable. Vital signs are stable. General: Awake and alert. No acute distress. HEENT: Head exam is unremarkable. LUNGS: Breath sounds decreased. HEART: Rate and Rhythm are regular. ABDOMEN: Soft, no distention. EXTREMITITES: No edema. Objective - Vital Signs Vital signs: Vital Signs Temp 98.0 F 08/11/21 04:00 Pulse 72 08/11/21 04:00 Resp 16 08/11/21 04:00 BP 146/74 08/11/21 04:00 Pulse Ox 95 08/11/21 04:00 FiO2 Intake & Output 08/10/21 08/11/21 08/11/21 18:59 06:59 18:59 Intake Total 480 Output Total 200 0 Balance 280 0 Intake: Oral 480 Output: Urine 200 Stool 0 0 Other: Voiding Method Toilet Toilet Urinal Urinal # Voids 1 3 - Labs CBC & Chem 7: 08/08/21 13:15 08/10/21 09:19 Labs: Abnormal Lab Results - Last 24 Hours (Table) 08/10/21 Range/Units 09:19 Sodium 124 L (137-145) mmol/L Chloride 91 L (98-107) mmol/L Glucose 129 H (74-99) mg/dL Assessment and Plan Plan: Assessment: 1. Hypovolemic hyponatremia further worsened with the use of vasopressin. Rapidly corrected with normal saline. Status post D5W to reverse correction. Sodium level 124 yesterday - received a dose of samsca 08/10/21. Urine osmolality 728. Urine sodium 47. TSH normal. 2. Mild acute kidney injury mostly prerenal improved with IV hydration. Creatinine 0.91 yesterday. UA benign. 3. Metabolic acidosis secondary to IV fluids. Improved. Plan: Status post samsca yesterday. Encouraged oral intake. Morning labs pending. Continue to hold desmopressin.
[2021-08-11 08:48] VITALS: BP 135/63; PULSE 68; TEMP 97.7
[2021-08-11] MEDS: ASPIRIN 81 MG PO SCH (08:52)
[2021-08-11] MEDS: CLOPIDOGREL 75 MG TAB PO SCH (08:52)
[2021-08-11] MEDS: FINASTERIDE 5 MG TAB PO SCH (08:52)
[2021-08-11] MEDS: ISOSORBIDE MONONITRATE ER 60 MG TAB.ER.24H PO SCH (08:52)
[2021-08-11] MEDS: CALCIUM CARB-VIT D 500 MG-5 MCG TAB PO SCH (08:52)
[2021-08-11] MEDS: TAMSULOSIN 0.4 MG CAP.ER.24H PO SCH (08:52)
[2021-08-11 10:03] LABS: Calcium 9.8 mg/dL (8.4-10.2); Potassium 4.8 mmol/L (3.5-5.1)
--- NOTE | 2021-08-11 13:57 | P.DS ---
Providers Date of admission: 08/08/21 16:23 Expected date of discharge: 08/11/21 Attending physician: Alfonso Urban Consults: 08/09/21 08:07 Consult Physician Stat Consulting Provider: Joanne Britt Consult Reason/Comments: hyponatremia ,Na 118 Do you want consulting provider notified?: Yes Primary care physician: Alfonso Urban [facility] Course: Final Diagnoses: Hyponatremia, hypovolemic, related to decreased oral intake and recently placed on desmopressin on 07/25/21. Resolved. 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 chronic back pain, history of back surgery Hypertension Hyperlipidemia History of nicotine dependence History of alcohol use Hospital course:This is a pleasant 81-year-old gentleman with past medical history of CAD, history of CT, CABG, angina, recent cardiac catheterization in August 2019, CVA/TIA, 1998 brain shunt,diabetes mellitus, gastroesophageal reflux disease, hypertension, sleep apnea, degenerative joint disease with chronic back pain, back surgery, former smoker, former alcohol use and multiple other medical issues presented to the ER with significant weakness, lethargy, had reported patient stumbling, wobbly and mumbling at home, sustained a fall, unsure if he hit his head. Denies chest pain, palpitations or shortness of breath. Denies nausea or vomiting. Denies abdominal pain. Patient works at [employer] and had not been drinking much water while temperatures were in the 90s. Sodium on admission 118, potassium 5, chloride 87, bicarb 23, BUN 25, creatinine 1.2, glucose 110 , lactic acid 0.7, magnesium 2. Afebrile, normal WBC, hemoglobin 13.5, platelets 185, INR 0.9 .UA negative.coronavirus not detected. Brain CT revealed no acute intracranial abnormality or gross space- occupying lesion. Chest x-ray reported no acute process. EKG reported sinus rhythm with left bundle branch block, troponins negative 3. IV fluids initiated. 08/10/2021 home medication desmopressin discontinued .received D5 yesterday, sodium level decreased to 125 yesterday afternoon, a.m. level pending. IV fluids currently off. Consumes 100% of dinner, denies nausea vomiting or further diarrhea. Denies abdominal pain. Denies chest pain, palpitations or shortness of breath. Reports he has been up ambulating to the bathroom, tolerated exertion well. Denies lightheadedness, dizziness or focal deficits. Maintaining O2 sats in the high 90s on room air, VSS. Urine osmolality 728, random sodium 47. Significant clinical improvement. Received Samsca yesterday ,Sodium 138. Denies chest pain, palpitations or shortness of breath. Denies lightheadedness, dizziness or focal deficit. Patient has been advised to remain off work until he follows up in the office on Saturday with PCP for clearance. No vasopressin at [place]. Close monitoring of sodium with repeat BMP outpatient in 3 days. Patient will be discharged home today in a stable condition with guarded prognosis. The impression and plan of care has been dictated as directed. : I performed a history and examination of this patient, discussed the same with the dictator. I agree with the dictator's note ,documented as a scribe. Any additional findings or plans will be noted. Patient Condition at Discharge: Stable Plan - Discharge Summary New Discharge Prescriptions: Continue Niacinamide [Niacin] 1,000 mg PO DAILY@1200 Tamsulosin HCl [Flomax] 0.4 mg PO DAILY Nitroglycerin Sl Tabs [Nitrostat] 0.4 mg SUBLINGUAL Q5M PRN PRN Reason: Chest Pain Finasteride [Proscar] 5 mg PO DAILY Omeprazole [PriLOSEC] 20 mg PO DAILY Aspirin [Adult Low Dose Aspirin EC] 81 mg PO DAILY Gabapentin [Neurontin] 300 - 600 mg PO Q8H Ubidecarenone [Co Q-10] 300 mg PO DAILY Cetirizine HCl [Zyrtec] 10 mg PO DAILY@1200 PRN PRN Reason: Allergy Symptoms Tolterodine Tartrate [Detrol LA] 4 mg PO AC-SUPPER Calcium 500mg/Vit D3 400 Iu 1 tab PO BID Pygeum 25mg &Saw [place] 80mg 2 cap PO AC-SUPPER Cholecalciferol [Vitamin D3 (10 Mcg = 400 Iu)] 400 unit PO AC-SUPPER Triamcinolone Acetonide [Nasacort] 2 spray EA NOSTRIL HS Isosorbide Mononitrate ER [Imdur] 60 mg PO DAILY #30 tab.er.24h Metoprolol Tartrate [Lopressor] 25 mg PO BID-W/MEALS Clopidogrel [Plavix] 75 mg PO DAILY Atorvastatin [Lipitor] 80 mg PO HS Discontinued Desmopressin [Ddavp] 0.4 mg PO HS Discharge Medication List Aspirin [Adult Low Dose Aspirin EC] 81 mg PO DAILY 02/02/16 [History] Finasteride [Proscar] 5 mg PO DAILY 02/02/16 [History] Gabapentin [Neurontin] 300 - 600 mg PO Q8H 02/02/16 [History] Niacinamide [Niacin] 1,000 mg PO DAILY@1200 02/02/16 [History] Nitroglycerin Sl Tabs [Nitrostat] 0.4 mg SUBLINGUAL Q5M PRN 02/02/16 [History] Omeprazole [PriLOSEC] 20 mg PO DAILY 02/02/16 [History] Tamsulosin HCl [Flomax] 0.4 mg PO DAILY 02/02/16 [History] Cetirizine HCl [Zyrtec] 10 mg PO DAILY@1200 PRN 09/12/17 [History] Tolterodine Tartrate [Detrol LA] 4 mg PO AC-SUPPER 09/12/17 [History] Ubidecarenone [Co Q-10] 300 mg PO DAILY 09/12/17 [History] Calcium 500mg/Vit D3 400 Iu 1 tab PO BID 08/20/19 [History] Cholecalciferol [Vitamin D3 (10 Mcg = 400 Iu)] 400 unit PO AC-SUPPER 08/20/19 [History] Pygeum 25mg &Saw [place] 80mg 2 cap PO AC-SUPPER 08/20/19 [History] Triamcinolone Acetonide [Nasacort] 2 spray EA NOSTRIL HS 08/20/19 [History] Isosorbide Mononitrate ER [Imdur] 60 mg PO DAILY #30 tab.er.24h 12/26/19 [Rx] Metoprolol Tartrate [Lopressor] 25 mg PO BID-W/MEALS 02/22/20 [History] Clopidogrel [Plavix] 75 mg PO DAILY 03/03/20 [History] Atorvastatin [Lipitor] 80 mg PO HS 08/08/21 [History] Follow up Appointment(s)/Referral(s): Alfonso Urban DO [Primary Care Provider] - 08/14/21 1:30 pm (please schedult pt's apt for Monday 08/14.) Ambulatory/Diagnostic Orders: Basic Metabolic Panel [LAB.AMB] Time Frame: 3 Days, Location: None Selected Patient Instructions/Handouts: Chest Pain (DC), Hyponatremia (DC) Activity/Diet/Wound Care/Special Instructions: off work until cleared by PCP at f/u visit on Monday 08/14( to be scheduled).
== END 2021-08-11 15:12 | disposition home or self-care (01) | DRG 641 ==
LOC: EC 13:02 → 4SSUR 16:23 → OBSVTOIN 16:23 → 3SCARD 16:36
PROVIDERS: ADMIT Family Medicine; ATTEND Family Medicine
DX: E87.1 Hypo-osmolality and hyponatremia (principal); N17.9 Acute kidney failure, unspecified; E11.9 Type 2 diabetes mellitus without complications; E78.5 Hyperlipidemia, unspecified; Z20.822 Contact with and (suspected) exposure to COVID-19; E86.1 Hypovolemia; T50.995A Adverse effect of other drugs, medicaments and biological substances, initial encounter; E87.2 Acidosis; G89.29 Other chronic pain; I10 Essential (primary) hypertension; I25.10 Atherosclerotic heart disease of native coronary artery without angina pectoris; I25.2 Old myocardial infarction; I44.7 Left bundle-branch block, unspecified; K21.9 Gastro-esophageal reflux disease without esophagitis; M19.90 Unspecified osteoarthritis, unspecified site; W19.XXXA Unspecified fall, initial encounter; Z79.02 Long term (current) use of antithrombotics/antiplatelets; Z79.82 Long term (current) use of aspirin; Z79.899 Other long term (current) drug therapy; Z82.3 Family history of stroke; Z82.49 Family history of ischemic heart disease and other diseases of the circulatory system; Z83.3 Family history of diabetes mellitus; Z86.73 Personal history of transient ischemic attack (TIA), and cerebral infarction without residual deficits; Z87.891 Personal history of nicotine dependence; Z95.1 Presence of aortocoronary bypass graft; Z88.2 Allergy status to sulfonamides; X58.XXXA Exposure to other specified factors, initial encounter
CPT/HCPCS: 36415; 70450; 71046; 80048; 80053; 81003; 83605; 83735; 83880; 83930; 83935; 84295; 84300; 84443; 84484; 85025; 85610; 85730; 87635; 93005; 96360; 96361; 99285

== ENCOUNTER → 2021-08-14 | Outpatient (CLI) | payer MEDICARE, BC ==
[2021-08-14 13:50] LABS: African American GFR (CKD) 82.3 (60.0-200.0); Anion Gap 10.7 mmol/L (10.00-18.00); BUN/Creat Ratio 24.75 Ratio (12.00-20.00); Blood Urea Nitrogen 24.4 mg/dL (9.0-27.0); Calcium 9.4 mg/dL (8.7-10.3); Carbon Dioxide 24.3 mmol/L (20.0-27.5); Potassium 3.9 mmol/L (3.5-5.5)
== END | disposition home or self-care (01) ==
LOC: LABWHC1 07:01
PROVIDERS: ATTEND Nurse Practitioner
DX: E87.1 Hypo-osmolality and hyponatremia (principal)
CPT/HCPCS: 36415; 80048

== ENCOUNTER → 2021-10-20 | Outpatient (CLI) | payer MEDICARE, BC ==
--- NOTE | 2021-10-20 14:47 | US ---
EXAMINATION TYPE: US thyroid st tissue head/neck DATE OF EXAM: 10/20/2021 COMPARISON: US dated 11/16/2020 CLINICAL HISTORY: E04.1 THYROID NODULE. GLAND SIZE: Right Lobe: 4.9 x 2.3 x 1.8 cm Overall Parenchyma: homogenous Left Lobe: 4.4 x 2.3 x 1.7 cm Overall Parenchyma: homogeneous Isthmus Thickness: 0.6 cm NODULES RIGHT: # of nodules measured on right: 0 LEFT: # of nodules measured on left: 1 1. 0.9 X 0.8 x 0.8 cm, lower mid, mixed cystic and solid, hypoechoic nodule, which is wider than ta ll, with smooth margins, with echogenic foci. Prior size: 0.9 x 0.8 x 0.8 cm ISTHMUS: # of nodules measured in the isthmus: 0 Bilateral neck scanned, no evidence of lymphadenopathy. Right parotid mass measures 2.9 x 1.3 x 1.6 cm. This may be an enlarged lymph node. Additional lisandra p with soft tissue CT neck is recommended. IMPRESSION: 1. Obvious suspicious nodule left lobe thyroid. Consider follow-up exam in one year. 2. Enlarged hypoechoic mass within the left parotid gland. This may be a lymph node. Additional lisandra p contrast CT neck is recommended. 2017 ACR TI-RADS LEVEL: TR-RADS 3 - Mildly Suspicious: Follow if > 1.5 cm, FNA if > 2.5 cm *Highest TI-RADS level nodule reported
== END | disposition home or self-care (01) ==
LOC: RADUSWWP 10:57
PROVIDERS: ATTEND Otolaryngology
DX: D11.0 Benign neoplasm of parotid gland (principal)
CPT/HCPCS: 76536

== ENCOUNTER → 2022-02-08 | Outpatient (CLI) | payer MEDICARE, BC ==
--- NOTE | 2022-02-08 17:20 | P.PN ---
Subjective DATE: 02/08/2022 FOLLOW UP VISIT. Patient with obstructive sleep apnea hypopnea syndrome return to sleep center for follow-up visit. Information from previous visit have been reviewed. Patient is using PAP equipment every night for the whole night, getting PAP supplies in time. The patient does not have significant problems with the mask, PAP unit and humidification. [place] sleepiness scale is 6, which is normal. I checked information from PAP unit. PAP unit pressure for to 13, average 11.3 cm H2O. Usage is 90 % for more then 4 hours, average 5.9 hours per night. Leak is 2 l/m, which is in acceptable range. Apnea Hypopnea Index is 5.6, which is borderline, it was 4.6 during previous visit. MEDICATIONS:1. Metoprolol 25 mg twice a day 2. Aspirin 81 mg once a day 3. Omeprazole 20 mg once a day 4. Lipitor 80 mg once a day 5. Tomsulosin 0.4 mg once a day 6. Zyrtec 10 mg once a day 7. Gabapentin 300 mg every 8 hours 8. Plavix 75 mg once a day During physical exam: GENERAL: A pleasant patient without any distress. VITAL SIGNS: BP 118/55, HR 62, RR 16 , weight 151, temperature 97.1, oxygen saturation at room air 95 % . HEENT: PERRLA, EOMI.low position of soft palate, Mallapati 4 . NECK: Supple. No JVD. LUNGS: Clear to percussion and to auscultation. Good air exchange. No wheezing or rhonchi. HEART: S1, S2 regular. ABDOMEN: Soft and nontender.[] EXTREMITIES: No clubbing or cyanosis. [facility]: Awake, alert, and oriented x3. No focal deficit. Impressions: 1. Obstructive sleep apnea-hypopnea syndrome. Patient demonstrated great compliance with treatment, benefiting from treatment. 2. Coronary artery disease, status post CABG and stent insertion. 3. Status post brain surgery for shunt in 1998. 4. BPH. 5. Emphysema. 6. Status post right knee surgery. 7. History of sinusitis. 8. Status post back surgery. 9. Status post bilateral cataract surgery. 10. Status post tonsillectomy. 11. Status post cholecystectomy. Plan: 1. Continue using PAP equipment every night for the whole night. 2. I changed pressure in CPAP unit to the range from 4 to14 cm of water. 3. PAP unit should stay lower then position of the head. 4. Advised patient to remove all remaining water from humidifier canister daily and make it dry after each usage. Refill canister with fresh distilled water before each usage. 5. Sleep hygiene with regular time in bed for at least 8 hours. 6. Precautions related to driving. No driving if feel any sleepiness. 7. I will maintain prescription for PAP supplies including mask, tube, filters. 8. Follow up visit in 6 months or earlier if patient has any problems. 9. Watching weight. Thank you very much for allowing me to participate in the management of your patient. Ismael Aquino MD, PhD, FAASM. Diplomat of [place] [employer], Sleep Medicine Board by [place] [employer] [facility] [place]
== END ==
LOC: SLEEP 15:35
PROVIDERS: ATTEND Internal Medicine
DX: G47.33 Obstructive sleep apnea (adult) (pediatric) (principal); I25.10 Atherosclerotic heart disease of native coronary artery without angina pectoris; J43.9 Emphysema, unspecified; Z95.1 Presence of aortocoronary bypass graft; N40.0 Benign prostatic hyperplasia without lower urinary tract symptoms; Z96.651 Presence of right artificial knee joint; Z87.09 Personal history of other diseases of the respiratory system; Z98.890 Other specified postprocedural states; Z98.41 Cataract extraction status, right eye; Z98.42 Cataract extraction status, left eye; Z90.49 Acquired absence of other specified parts of digestive tract; Z99.89 Dependence on other enabling machines and devices; Z79.899 Other long term (current) drug therapy; Z79.82 Long term (current) use of aspirin; Z88.2 Allergy status to sulfonamides; Z87.891 Personal history of nicotine dependence
CPT/HCPCS: 99212

== ENCOUNTER → 2022-09-05 | Outpatient (CLI) | payer MEDICARE, BC ==
--- NOTE | 2022-09-05 16:10 | P.PN ---
Subjective DATE: 09/05/2022 FOLLOW UP VISIT. Patient with obstructive sleep apnea hypopnea syndrome return to sleep center for follow-up visit. Information from previous visit have been reviewed. Patient is using PAP equipment every night for the whole night, getting PAP supplies in time. The patient does not have significant problems with the mask, PAP unit and humidification. [place] sleepiness scale is 7, which is normal. I checked information from PAP unit. PAP unit pressure 4-14, average 11.6 cm H2O. Usage is 96 % for more then 4 hours, average 6.4 hours per night. Leak is 19 l/m, which is in acceptable range. Apnea Hypopnea Index is 6.5, which is borderline-slightly increased. MEDICATIONS:1. Metoprolol 25 mg twice a day 2. Omeprazole 20 mg once a day 3. Lipitor 80 mg once a day 4. Now as a court 5. Isosorbide 6. Gabapentin 300 mg twice a day 7. Plavix 75 mg once a day 8., Flomax 0.4 mg once a day During physical exam: GENERAL: A pleasant patient without any distress. VITAL SIGNS: BP 143/62, HR 66, RR 16, weight 154.2, temperature 97.6, oxygen saturation at room air 93 % . HEENT: PERRLA, EOMI.low position of soft palate, Mallapati 4 . NECK: Supple. No JVD. LUNGS: Clear to percussion and to auscultation. Good air exchange. No wheezing or rhonchi. HEART: S1, S2 regular. ABDOMEN: Soft and nontender.[] EXTREMITIES: No clubbing or cyanosis. 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 No focal deficit. Impressions: 1. Obstructive sleep apnea-hypopnea syndrome. Patient demonstrated great compliance with treatment, benefiting from treatment. 2. Coronary artery disease, status post CABG and stent insertion. 3. BPH. 4. Status post brain surgery for shunt in 1998. 5. Emphysema. 6. History of sinusitis. 7. Status post right knee surgery. 8. Status post back surgery. 9. Status post bilateral cataract surgery. 10. Status post tonsillectomy. 11. Status post cholecystectomy. Plan: 1. Continue using PAP equipment every night for the whole night. 2. To change air filter at least 1-2 times per month. 3. PAP unit should stay lower then position of the head. 4. Advised patient to remove all remaining water from humidifier canister daily and make it dry after each usage. Refill canister with fresh distilled water before each usage. 5. Sleep hygiene with regular time in bed for at least 8 hours. 6. Precautions related to driving. No driving if feel any sleepiness. 7. I will maintain prescription for PAP supplies including mask, tube, filters. 8. Follow up visit in 6 months or earlier if patient has any problems. Thank you very much for allowing me to participate in the management of your patient. Ismael Aquino MD, PhD, FAASM. Diplomat of [place] [employer], Sleep Medicine Board by [place] [employer] [place]
== END ==
LOC: 3 N SLEEP 15:25
PROVIDERS: ATTEND Internal Medicine
DX: G47.33 Obstructive sleep apnea (adult) (pediatric) (principal); I25.10 Atherosclerotic heart disease of native coronary artery without angina pectoris; J43.9 Emphysema, unspecified; J32.8 Other chronic sinusitis; N40.0 Benign prostatic hyperplasia without lower urinary tract symptoms; Z95.1 Presence of aortocoronary bypass graft; Z98.890 Other specified postprocedural states; Z79.899 Other long term (current) drug therapy; Z79.02 Long term (current) use of antithrombotics/antiplatelets; Z99.89 Dependence on other enabling machines and devices; Z87.891 Personal history of nicotine dependence; Z79.01 Long term (current) use of anticoagulants; Z88.1 Allergy status to other antibiotic agents
CPT/HCPCS: 99212

== ENCOUNTER → 2023-03-06 | Outpatient (CLI) | payer MEDICARE, BC ==
--- NOTE | 2023-03-06 14:27 | P.PN ---
Subjective DATE: 03/06/2023 FOLLOW UP VISIT. Patient with obstructive sleep apnea hypopnea syndrome return to sleep center for follow-up visit. Information from previous visit have been reviewed. Patient is using PAP equipment every night for the whole night, getting PAP supplies in time. The patient does not have significant problems with the mask, PAP unit and humidification. [place] sleepiness scale is 10, which is slightly increased. I checked information from PAP unit. PAP unit pressure 4-14, average 10.4 cm H2O. Usage is 70 % for more then 4 hours, average 5.1 hours per night. Leak is slightly increased to 28 l/m. Apnea Hypopnea Index is slightly increased to 7.4, which include 0.1 central apneas. MEDICATIONS:1. Omeprazole 20 mg once a day 2. Metoprolol 25 mg twice a day 3. Lipitor 80 mg once a day 4., Flomax 0.4 mg once a day 5. Isosorbide 6. Gabapentin 300 mg every 8 hours 7. Plavix 75 mg at bedtime During physical exam: GENERAL: A pleasant patient without any distress. VITAL SIGNS: BP 164/73, HR 55, RR 12, weight 146.8, temperature 97.1, oxygen saturation at room air 96 % . HEENT: PERRLA, EOMI.low position of soft palate, Mallapati 4 . NECK: Supple. No JVD. LUNGS: Clear to percussion and to auscultation. Good air exchange. No wheezing or rhonchi. HEART: S1, S2 regular. ABDOMEN: Soft and nontender.[] EXTREMITIES: No clubbing or cyanosis. STAMP MAKER: Awake, alert, and oriented x3. No focal deficit. Impressions: 1. Obstructive sleep apnea-hypopnea syndrome. Patient demonstrated borderline compliance with treatment, benefiting from treatment. 2. Hypertension. 3. Coronary artery disease, status post CABG. 4. BPH. 5. Status post brain surgery for shunt in 1998. 6. History of sinusitis. 7. status post back surgery . 8. Status post bilateral cataract surgery . 9. Status post cholecystectomy . 10. Status post tonsillectomy . Plan: 1. Continue using PAP equipment every night for the whole night. 2. To change air filter at least 1-2 times per month. 3. PAP unit should stay lower then position of the head. 4. Advised patient to remove all remaining water from humidifier canister daily and make it dry after each usage. Refill canister with fresh distilled water before each usage. 5. Sleep hygiene with regular time in bed for at least 8 hours. 6. Precautions related to driving. No driving if feel any sleepiness. 7. I will maintain prescription for PAP supplies including mask, tube, filters. 8. Follow up visit in 6 months or earlier if patient has any problems. 9. Watching weight. Thank you very much for allowing me to participate in the management of your patient. Ismael Aquino MD, PhD, FAASM. Diplomat of [place] [employer], Sleep Medicine Board by [place] [employer] [facility] [place]
== END ==
LOC: 3 N SLEEP 13:56
PROVIDERS: ATTEND Internal Medicine
DX: G47.33 Obstructive sleep apnea (adult) (pediatric) (principal); I10 Essential (primary) hypertension; I25.10 Atherosclerotic heart disease of native coronary artery without angina pectoris; N40.0 Benign prostatic hyperplasia without lower urinary tract symptoms; Z98.890 Other specified postprocedural states; Z95.1 Presence of aortocoronary bypass graft; Z90.49 Acquired absence of other specified parts of digestive tract; Z79.899 Other long term (current) drug therapy; Z79.02 Long term (current) use of antithrombotics/antiplatelets; Z99.89 Dependence on other enabling machines and devices; Z90.89 Acquired absence of other organs; Z98.41 Cataract extraction status, right eye; Z98.42 Cataract extraction status, left eye; Z87.09 Personal history of other diseases of the respiratory system; Z88.2 Allergy status to sulfonamides; Z79.82 Long term (current) use of aspirin; Z87.891 Personal history of nicotine dependence
CPT/HCPCS: 99212

== ENCOUNTER 2023-08-02 19:24 | Emergency (ER) | payer MEDICARE, BC ==
[2023-08-02 19:36] VITALS: TEMP 98
--- NOTE | 2023-08-02 19:51 | ED ---
Fall HPI - General Chief Complaint: Fall Stated Complaint: Fall, back injury, on blood thinners Time Seen by Provider: 08/02/23 19:37 Source: patient, RN notes reviewed, old records reviewed Mode of arrival: ambulatory Limitations: no limitations - History of Present Illness Initial Comments: This is a 83-year-old male to the ER today. He presents today for evaluation of not feeling well, patient has not been feeling well all day this occurred after a fall fall from standing patient was maybe 3 steps in the ER on Plavix and fell back hit his head complaining of some back pain and some hip pain and did hit his head. This fall occurred about 7 hours prior to arrival here in the emergency department. Patient does admit also feeling weak MD Complaint: fall -: hour(s) (7) Fall From: from height (distance), down stairs (#) (3) When Fall Occurred: other (8hrs) Place Fall Occurred: home Loss of Consciousness: none Prolonged Down Time?: no Symptoms Prior to Fall: none Location: back Severity: severe Severity scale (1-10): 5 Quality: stabbing Context: tripped/slipped Associated Symptoms: denies - Related Data Home Medications Medication Instructions Recorded Confirmed Aspirin [Adult Low Dose Aspirin EC] 81 mg PO DAILY 02/02/16 08/08/21 Finasteride [Proscar] 5 mg PO DAILY 02/02/16 08/08/21 Gabapentin [Neurontin] 300 - 600 mg PO Q8H 02/02/16 08/08/21 Niacinamide [Niacin] 1,000 mg PO DAILY@1200 02/02/16 08/08/21 Nitroglycerin Sl Tabs [Nitrostat] 0.4 mg SUBLINGUAL Q5M PRN 02/02/16 08/08/21 Omeprazole [PriLOSEC] 20 mg PO DAILY 02/02/16 08/08/21 Tamsulosin HCl [Flomax] 0.4 mg PO DAILY 02/02/16 08/08/21 Cetirizine HCl [Zyrtec] 10 mg PO DAILY@1200 PRN 09/12/17 08/08/21 Tolterodine Tartrate [Detrol LA] 4 mg PO AC-SUPPER 09/12/17 08/08/21 Ubidecarenone [Co Q-10] 300 mg PO DAILY 09/12/17 08/08/21 Calcium 500mg/Vit D3 400 Iu 1 tab PO BID 08/20/19 08/08/21 Cholecalciferol [Vitamin D3 (10 400 unit PO AC-SUPPER 08/20/19 08/08/21 Mcg = 400 Iu)] Pygeum 25mg &Saw [place] 80mg 2 cap PO AC-SUPPER 08/20/19 08/08/21 Triamcinolone Acetonide [Nasacort] 2 spray EA NOSTRIL HS 08/20/19 08/08/21 Metoprolol Tartrate [Lopressor] 25 mg PO BID-W/MEALS 02/22/20 08/08/21 Clopidogrel [Plavix] 75 mg PO DAILY 03/03/20 08/08/21 Atorvastatin [Lipitor] 80 mg PO HS 08/08/21 08/08/21 Previous Rx's Medication Instructions Recorded Isosorbide Mononitrate ER [Imdur] 60 mg PO DAILY #30 tab.er.24h 12/26/19 Allergies Allergy/AdvReac Type Severity Reaction Status Date / Time Sulfa (Sulfonamide Allergy Rash/Hives Verified 08/02/23 19:36 Antibiotics) Review of Systems ROS Statement: Those systems with pertinent positive or pertinent negative responses have been documented in the HPI. ROS Other: All systems not noted in ROS Statement are negative. Past Medical History Past Medical History: Coronary Artery Disease (CAD), Hyperlipidemia, Hypertension, Myocardial Infarction (CA) Additional Past Medical History / Comment(s): blood pressure to be kept low for shunt. Last Myocardial Infarction Date:: 1993 History of Any Multi-Drug Resistant Organisms: None Reported Date of last positivie culture/infection: 2009 MDRO Source:: L elbow Past Surgical History: Back Surgery, Coronary Bypass/CABG, Heart Catheterization With Stent, Orthopedic Surgery, Tonsillectomy Additional Past Surgical History / Comment(s): brain shunt Past Anesthesia/Blood Transfusion Reactions: No Reported Reaction, Motion Sickness Additional Past Anesthesia/Blood Transfusion Reaction / Comment(s): Pt has clausterphobia. Date of Last Stent Placement:: 2017 Past Psychological History: No Psychological Hx Reported Smoking Status: Former smoker - Past Family History Father Family Medical History: Diabetes Mellitus, Myocardial Infarction (CA) Additional Family Medical History / Comment(s): heart attack 86 Mother Family Medical History: CVA/TIA Additional Family Medical History / Comment(s): of stroke General Exam Limitations: no limitations General appearance: alert, in no apparent distress Head exam: Present: atraumatic, normocephalic, normal inspection Eye exam: Present: normal appearance, PERRL, EOMI. Absent: scleral icterus, conjunctival injection, periorbital swelling ENT exam: Present: normal exam, mucous membranes moist Neck exam: Present: normal inspection. Absent: tenderness, meningismus, lymphadenopathy Respiratory exam: Present: normal lung sounds bilaterally. Absent: respiratory distress, wheezes, rales, rhonchi, stridor Cardiovascular Exam: Present: regular rate, normal rhythm, normal heart sounds. Absent: systolic murmur, diastolic murmur, rubs, gallop, clicks GI/Abdominal exam: Present: soft, normal bowel sounds. Absent: distended, tenderness, guarding, rebound, rigid Extremities exam: Present: normal inspection, full ROM, normal capillary refill. Absent: tenderness, pedal edema, joint swelling, calf tenderness Back exam: Present: normal inspection Neurological exam: Present: alert, oriented X3, CN II-XII intact Psychiatric exam: Present: normal affect, normal mood Skin exam: Present: warm, dry, intact, normal color. Absent: rash Course Vital Signs 08/02/23 08/02/23 08/02/23 19:28 20:17 22:13 Temperature 98.0 F Pulse Rate 66 60 56 L Respiratory 20 20 16 Rate Blood Pressure 159/66 170/73 182/74 O2 Sat by Pulse 97 93 L Oximetry - Reevaluation(s) Reevaluation #1: 08/02/23 19:52 Medical records reviewed Reevaluation #2: Patient symptoms are improved here in the ER Reevaluation #3: Patient informed of results and questions answered Reevaluation #4: Was pt. sent in by a medical professional or institution (, PA, DOUGHNUT MAKER, urgent care, hospital, or retirement...) When possible be specific @ -no Did you speak to anyone other than the patient for history (EMS, parent, family, police, friend...)? What history was obtained from this source @ -no Did you review nursing and triage notes (agree or disagree)? Why? @ -agree Are old charts reviewed (outside hosp., previous admission, EMS record, old EKG, old radiological studies, urgent care reports/EKG's, retirement records)? Report findings @ -yes Differential Diagnosis (chest pain, altered mental status, abdominal pain women, abdominal pain men, vaginal bleeding, weakness, fever, dyspnea, syncope, headache, dizziness, GI bleed, back pain, seizure, CVA, palpatations, mental health, musculoskeletal)? @ -prior EKG interpreted by me (3pts min.). @ -yes X-rays interpreted by me (1pt min.). @ -yes negative for acute disease CT interpreted by me (1pt min.). @ -Yes negative for acute disease U/S interpreted by me (1pt. min.). @ -no What testing was considered but not performed or refused? (CT, X-rays, U/S, labs)? Why? @ -none What meds were considered but not given or refused? Why? @ -none Did you discuss the management of the patient with other professionals (professionals i.e. , PA, DOUGHNUT MAKER, lab, RT, psych nurse, nephrology social worker, emergency spill response technician, teacher, customer service officer, rn case manager hospice)? Give summary @ -no Was smoking cessation discussed for >3mins.? @ -no Was critical care preformed (if so, how long)? @ -no Were there social determinants of health that impacted care today? How? (Homelessness, low income, unemployed, alcoholism, drug addiction, [place] sportation, low edu. Level, literacy, decrease access to med. care, retirement, rehab)? @ -none Was there de-escalation of care discussed even if they declined (Discuss DNR or withdrawal of care, Hospice)? DNR status @ -no What co-morbidities impacted this encounter? (DM, HTN, Smoking, COPD, CAD, Cancer, CVA, ARF, Chemo, Hep., AIDS, mental health diagnosis, sleep apnea, morbid obesity)? @ -none Was patient admitted / discharged? Hospital course, mention meds given and route, prescriptions, significant lab abnormalities, going to OR and other pertinent info. @ - 83 male to ER for evaluation of fall, fall with no significant injury, patient has normal imaging here in the ER and can be discharged Discharge Undiagnosed new problem with uncertain prognosis? @ -no Drug Therapy requiring intensive monitoring for toxicity (Heparin, Nitro, Insulin, Cardizem)? @ -no Were any procedures done? @ -no Diagnosis/symptom? @ -Fall Acute, or Chronic, or Acute on Chronic? @ -Acute Uncomplicated (without systemic symptoms) or Complicated (systemic symptoms)? @ -Complicated Side effects of treatment? @ -no Exacerbation, Progression, or Severe Exacerbation? @ -exacerbation Poses a threat to life or bodily function? How? (Chest pain, [place], CA, pneumonia, PE, COPD, DKA, ARF, appy, cholecystitis, CVA, Diverticulitis, Homicidal, Suicidal, threat to staff... and all critical care pts) @ -yes with extremes of age fall Medical Decision Making - Medical Decision Making 83 male to ER for evaluation of fall, fall with no significant injury, patient has normal imaging here in the ER and can be discharged - Lab Data Result diagrams: 08/02/23 19:49 08/02/23 19:49 Lab Results 08/02/23 08/02/23 08/02/23 Range/Units 19:43 19:49 19:49 WBC 10.0 (3.8-10.6) k/uL RBC 4.31 (4.30-5.90) m/uL Hgb 13.6 (13.0-17.5) gm/dL Hct 42.7 (39.0-53.0) % MCV 99.0 (80.0-100.0) fL MCH 31.5 (25.0-35.0) pg MCHC 31.9 (31.0-37.0) g/dL RDW 13.0 (11.5-15.5) % Plt Count 153 (150-450) k/uL MPV 7.9 Neutrophils % 73 % Lymphocytes % 14 % Monocytes % 9 % Eosinophils % 2 % Basophils % 0 % Neutrophils # 7.2 (1.3-7.7) k/uL Lymphocytes # 1.4 (1.0-4.8) k/uL Monocytes # 0.9 (0-1.0) k/uL Eosinophils # 0.2 (0-0.7) k/uL Basophils # 0.0 (0-0.2) k/uL PT 10.3 (10.0-12.5) sec INR 0.9 (<1.2) APTT 22.8 (22.0-30.0) sec Sodium (137-145) mmol/L Potassium (3.5-5.1) mmol/L Chloride (98-107) mmol/L Carbon Dioxide (22-30) mmol/L Anion Gap mmol/L BUN (9-20) mg/dL Creatinine (0.66-1.25) mg/dL Est GFR (CKD-EPI)AfAm (>60 ml/min/1.73 sqM) Est GFR (CKD-EPI)NonAf (>60 ml/min/1.73 sqM) Glucose (74-99) mg/dL Calcium (8.4-10.2) mg/dL Total Bilirubin (0.2-1.3) mg/dL AST (17-59) U/L ALT (4-49) U/L Alkaline Phosphatase (38-126) U/L Troponin I (0.000-0.034) ng/mL Total Protein (6.3-8.2) g/dL Albumin (3.5-5.0) g/dL Serum Alcohol mg/dL Blood Type A Positive Blood Type Recheck A Pos Bld Type Recheck Status No Antibody Screen NEGATIVE Spec Expiration Date 08/05/2023 - 234208/02/23 08/02/23 Range/Units 19:49 19:49 WBC (3.8-10.6) k/uL RBC (4.30-5.90) m/uL Hgb (13.0-17.5) gm/dL Hct (39.0-53.0) % MCV (80.0-100.0) fL MCH (25.0-35.0) pg MCHC (31.0-37.0) g/dL RDW (11.5-15.5) % Plt Count (150-450) k/uL MPV Neutrophils % % Lymphocytes % % Monocytes % % Eosinophils % % Basophils % % Neutrophils # (1.3-7.7) k/uL Lymphocytes # (1.0-4.8) k/uL Monocytes # (0-1.0) k/uL Eosinophils # (0-0.7) k/uL Basophils # (0-0.2) k/uL PT (10.0-12.5) sec INR (<1.2) APTT (22.0-30.0) sec Sodium 138 (137-145) mmol/L Potassium 4.0 (3.5-5.1) mmol/L Chloride 107 (98-107) mmol/L Carbon Dioxide 27 (22-30) mmol/L Anion Gap 4 mmol/L BUN 28 H (9-20) mg/dL Creatinine 1.20 (0.66-1.25) mg/dL Est GFR (CKD-EPI)AfAm 64 (>60 ml/min/1.73 sqM) Est GFR (CKD-EPI)NonAf 55 (>60 ml/min/1.73 sqM) Glucose 99 (74-99) mg/dL Calcium 9.0 (8.4-10.2) mg/dL Total Bilirubin 0.8 (0.2-1.3) mg/dL AST 35 (17-59) U/L ALT 41 (4-49) U/L Alkaline Phosphatase 67 (38-126) U/L Troponin I <0.012 (0.000-0.034) ng/mL Total Protein 6.6 (6.3-8.2) g/dL Albumin 4.3 (3.5-5.0) g/dL Serum Alcohol <10 mg/dL Blood Type Blood Type Recheck Bld Type Recheck Status Antibody Screen Spec Expiration Date - EKG Data -: EKG Interpreted by Me (EKG is sinus 65 SC 212 QRS 152 QTc 45) - Radiology Data Radiology results: report reviewed (CT brain C-spine chest and pelvis x-ray negative for traumatic injury), image reviewed Disposition Clinical Impression: Fall, Chest pain, Back pain Disposition: HOME SELF-CARE Condition: Good Instructions (If sedation given, give patient instructions): Fall Prevention for Older Adults (ED) Is patient prescribed a controlled substance at d/c from ED?: No Referrals: Alfonso Urban DO [Primary Care Provider] - 1-2 days Time of Disposition: 22:00
--- NOTE | 2023-08-02 20:16 | CT ---
EXAMINATION TYPE: CT brain cspine wo con DATE OF EXAM: 08/02/2023 COMPARISON: 08/08/2021, 4 6. HISTORY: fall on thinners CT DLP: 1457 mGycm Automated exposure control for dose reduction was used. TECHNIQUE: CT scan of the head and cervical spine are performed without contrast. FINDINGS: Artifact limits assessment of the skull base. Remaining portion of the brain parenchyma d emonstrates a PLACING JUDGE shunt catheter. Moderate degenerative disc disease with the hypoattenuation in the w promise matter most typical remote microvascular ischemia. No acute intracranial hemorrhage or mass effe ct. Orbits are symmetric. Calvarium is intact. Tiny hypodensity within the basal ganglia may represen t prominent Virchow-Theo space or tiny remote lacunar infarct. Assessment spinal canal is limited due to artifact and resolution. There is multilevel severe degener ative disc disease. Multilevel facet arthropathy and foraminal encroachment. Posterior spondylosis at multiple levels severe atherosclerotic changes of the carotid arteries greater on the right. Likely results in a degree of Canal stenosis. There is a grade 1 anterolisthesis C4-C5. No acute fracture. Incidental note is made of a spiculated 5 mm nodule in the right lung apex partially included in the [id number]. 4 mm right upper lobe nodule too small to characterize. There is a right parotid mass measuring 1.5 cm. Short-term follow-up ultrasound is recommended. IMPRESSION: 1. There is no acute fracture or dislocation evident in the cervical spine. 2. No acute intracranial hemorrhage, mass effect, or midline shift is seen. 3. 5 mm nodule right lung apex 2 small to characterize but does have some groundglass and irregularit y along its margins. Finding also noted on prior exam of 2021. Would recommend a short-term follow-up CT of the chest for further evaluation. 4. Severe atherosclerotic disease of the carotid bifurcation greater on the right. Significant stenos is suspected. 5. There is a large right parotid mass measuring 1.5 cm finding is stable from prior exam of 2021.
[2023-08-02 20:19] LABS: INR 0.9 (<1.2); Partial Thromboplastin Time 22.8 sec (22.0-30.0); Prothrombin Time 10.3 sec (10.0-12.5)
--- NOTE | 2023-08-02 20:19 | XR ---
EXAMINATION TYPE: XR chest 1V DATE OF EXAM: 08/02/2023 COMPARISON: 08/08/2021 HISTORY: Pain TECHNIQUE: Single frontal view of the chest is obtained. FINDINGS: Diffuse osteopenia with right-sided area of nodular consolidation. Underlying COPD. Post m edian sternotomy changes. Atherosclerotic change aorta. IMPRESSION: COPD with a 1.9 cm mass or localized consolidation right upper lobe. Recommend short-ter m follow-up CT of the chest.
--- NOTE | 2023-08-02 20:20 | XR ---
EXAMINATION TYPE: XR pelvis AP view DATE OF EXAM: 08/02/2023 COMPARISON: NONE HISTORY: Pain The osseous structures are intact and the joint spaces are preserved. No acute fracture is seen. Vi sualized bowel gas pattern is nonspecific. Degenerative changes of the spine. Vascular calcification s are noted. Artifact limits assessment of the trochanteric and the proximal femur. Remaining osseous structures intact. IMPRESSION: 1. No acute fracture as visualized.
[2023-08-02 20:22] LABS: ALT 41 U/L (4-49); AST 35 U/L (17-59); African American GFR (CKD) 64 (>60 ml/min/1.73 sqM); Albumin 4.3 g/dL (3.5-5.0); Alcohol <10 mg/dL; Alkaline Phosphatase 67 U/L (38-126); Anion Gap 4 mmol/L; Blood Urea Nitrogen 28 mg/dL (9-20); Carbon Dioxide 27 mmol/L (22-30); Chloride 107 mmol/L (98-107); Glucose 99 mg/dL (74-99); Non-African American GFR(CKD) 55 (>60 ml/min/1.73 sqM); Sodium 138 mmol/L (137-145); Total Bilirubin 0.8 mg/dL (0.2-1.3); Total Protein 6.6 g/dL (6.3-8.2)
[2023-08-02] MEDS: SODIUM CHLORIDE 0.9% 1,000 ML IV STA (20:22)
[2023-08-02] MEDS: HYDROmorphone 0.5 MG/0.5 ML SYRINGE IVP STA (20:26)
[2023-08-02 20:29] LABS: Basophils % (A) 0 %; Eosinophils # (A) 0.2 k/uL (0-0.7); Eosinophils % (A) 2 %; HCT 42.7 % (39.0-53.0); HGB 13.6 gm/dL (13.0-17.5); Lymphocytes # (A) 1.4 k/uL (1.0-4.8); Lymphocytes % (A) 14 %; MCH 31.5 pg (25.0-35.0); MCHC 31.9 g/dL (31.0-37.0); Mean Platelet Volume 7.9; Monocytes # (A) 0.9 k/uL (0-1.0); Monocytes % (A) 9 %; Neutrophils # (A) 7.2 k/uL (1.3-7.7); Neutrophils % (A) 73 %; Platelet Count 153 k/uL (150-450); RBC 4.31 m/uL (4.30-5.90)
[2023-08-02 22:16] VITALS: BP 182/74; PULSE 56; RESP 16
== END 2023-08-02 22:32 | disposition home or self-care (01) ==
LOC: EC 19:24
DX: R07.89 Other chest pain (principal); M54.9 Dorsalgia, unspecified; Z88.2 Allergy status to sulfonamides; Z87.891 Personal history of nicotine dependence; W01.0XXA Fall on same level from slipping, tripping and stumbling without subsequent striking against object, initial encounter
CPT/HCPCS: 36415; 93005; 86900; 86901; 80053; 84484; 85025; 85610; 85730; 86850; 72170; 71045; 72125; 70450; 99284; 96374; 96361; G0480; J1170; 80320

== ENCOUNTER → 2023-09-25 | Outpatient (CLI) | payer MEDICARE, BC | LOC: 3 N SLEEP 13:41 | PROVIDERS: ATTEND Internal Medicine | CPT/HCPCS: 99212 ==

== ENCOUNTER → 2024-02-07 | Outpatient (CLI) | payer MEDICARE, BC ==
--- NOTE | 2024-02-07 15:08 | US ---
EXAMINATION TYPE: US bladder DATE OF EXAM: 02/07/2024 COMPARISON: NONE CLINICAL INDICATION: Male, 83 years old with history of N40.1 BENIGN PROSTATIC HYPERPLASIA; BPH, freq uent urination TECHNIQUE: Grayscale and color doppler imaging of the bilateral kidneys and urinary bladder. FINDINGS: EXAM MEASUREMENTS: Post Void Residual Volume: 76 mL INTEGRATED PROGRAM TEACHER NOTES: Patient tried to void for over 10 mins Normal Post Void Residual (less than 50ml): no IMPRESSION: 76 post void residual [facility], , 02/07/2024 3:06 PM
== END | disposition home or self-care (01) ==
LOC: RADUSWWP 13:52
PROVIDERS: ATTEND Psychiatry & Neurology Neurology
DX: N40.1 Benign prostatic hyperplasia with lower urinary tract symptoms (principal); R35.0 Frequency of micturition
CPT/HCPCS: 76857

== ENCOUNTER → 2024-03-20 | Outpatient (CLI) | payer MEDICARE, OTHER ==
[2024-03-20 12:53] LABS: African American GFR (CKD) 78 (>60 ml/min/1.73 sqM); Blood Urea Nitrogen 24 mg/dL (9-20); Non-African American GFR(CKD) 67 (>60 ml/min/1.73 sqM)
--- NOTE | 2024-03-20 14:00 | CT ---
EXAMINATION TYPE: CT chest w con DATE OF EXAM: 03/20/2024 1:39 PM COMPARISON: 02/22/2020 CLINICAL INDICATION: Male, 83 years old with history of R22.2 LOCALIZED SWELLING, MASS AND LUMP, TRUN K, f/u nodules TECHNIQUE: Axial images were obtained at 5 mm thick sections. Reconstructed images are reviewed on t he computer in the coronal plane. Contrast used:100 mL of Isovue 300 with IV Contrast, (none if empty) Oral contrast used: (none if empty) CT DLP: 266.1 mGycm, Automated exposure control for dose reduction was used. FINDINGS: Portion of the thyroid visualized is normal. Punctate nodular densities in the anterior lateral right upper lobe measuring approximately 0.3 cm. T his may have been faintly visualized previously. There is an adjacent area of increased density measu ring 0.8 x 1.4 cm. This area is slightly larger than comparison. There is a stable appearing density in the posterior right apex measuring 0.6 cm. There is a 0.5 cm nodule adjacent to fissure anterior right midlung. This was present previously. There is a 0.3 cm density within the lingula present prev iously. There is a 2.4 x 1.6 cm density along the major fissure in the right peripheral midlung which is new. Additional workup for neoplasm is recommended, series 4 image 24. There are few scattered bulla present, stable. No enlarged mediastinal or hilar adenopathy is evident. Small lymph nodes are within the pretrachea l space. There is a prominent node just above the toña measuring 1.2 cm. Image 22 this may have bee n present previously. Right hilar adenopathy is present measuring 1.1 cm. Image 26. Right infrahil ar adenopathy was present previously. Adenopathy appears somewhat diminished from the comparison. Ascending aorta diameter at the level of the main pulmonary artery is 3.5 cm. The main pulmonary art michelle diameter at the bifurcation is 2.[address] sections are obtained through the upper abdomen. Abdomen is essentially unremarkable. IMPRESSION: 1. No large nodule peripheral right midlung suspicious for neoplasm. Additional workup with PET CT. 2. There is prominent adenopathy right hilar and pretracheal space present previously. 3. May be a slight enlargement of some linear density at the right apex. 4. Additional findings appear present previously. [facility], , 03/20/2024 1:57 PM
== END | disposition home or self-care (01) ==
LOC: RADCTMAIN 11:55
PROVIDERS: ATTEND Family Medicine
DX: R22.2 Localized swelling, mass and lump, trunk (principal)
CPT/HCPCS: 82565; 84520; 71260; 36415; Q9967

== ENCOUNTER → 2024-04-23 | Outpatient (CLI) | payer MEDICARE, OTHER ==
--- NOTE | 2024-04-24 07:46 | PE ---
EXAMINATION TYPE: PET CT fusion skull to thigh DATE OF EXAM: 04/23/2024 COMPARISON: Chest CT March 20, 2024 HISTORY: Lung mass, abnormal CT TECHNIQUE: Following the intravenous administration of 10.2 mCi of F-18 FDG, whole body images are p erformed from the skull base to the midthigh. Images are reviewed on the computer in the coronal, ax ial, and sagittal planes. Reconstructed rotating images are created on independent workstation and r eviewed on the computer. A localization and attenuation correction CT is performed in conjunction w ith the PET scan. Blood glucose level equals 96 SCAN: Initial Scan FINDINGS: SKULL BASE AND NECK: Approximately 1.3 cm posterior hypermetabolic right parotid mass, max SUV is 9. 52. CHEST, MEDIASTINUM, AND HILAR REGION: There is abnormal hypermetabolic uptake in the new 2.4 x 2.2 cm right upper lung nodule axial image 92, max SUV is 7.18. Prominent paracarinal lymph node axial image 95, max SUV is 3.73. No additional areas of abnormal hypermetabolic uptake identified. ABDOMEN AND PELVIS: No hypermetabolic adrenal masses. Nonspecific bowel uptake is seen. Slightly more prominent focal uptake in the right colon axial image 163 is noted. Finding should be correlated wit h most recent colonoscopy otherwise colonoscopy follow-up is advised to further evaluate to rule out malignancy. No definitive abnormal hypermetabolic uptake. OSSEOUS STRUCTURES: No abnormal hypermetabolic uptake. OTHER CT: A right-sided FOREIGN AGENT shunt catheter is present. Bilateral aphakia is seen. There is severe calc ified plaque bilateral carotid bulb level noted. Post-CABG changes are present. Small degree of bilateral gynecomastia is noted. Cholecystectomy clips are seen. There is moderate to severe calcified plaque of the infrarenal abdomi nal aorta extending into the iliac branch vessels. Multilevel spurring with vacuum disc phenomenon and disc space narrowing in the lumbar spine. IMPRESSION: 1. Abnormal hypermetabolic uptake in the new 2.4 x 2.2 cm right upper lung pulmonary nodule worrisome for malignancy. Consider bronchoscopy for tissue sampling. Possible paracarinal adenopathy. No metas tatic disease. 2. There is posterior 1.3 cm hypermetabolic right parotid mass worrisome for secondary malignancy. Ad vise ENT referral and consider imaging guided sampling to further evaluate. [facility], , 04/24/2024 7:43 AM
== END | disposition home or self-care (01) ==
LOC: RADPETMAIN 12:14
PROVIDERS: ATTEND Internal Medicine
DX: R91.8 Other nonspecific abnormal finding of lung field (principal); R93.7 Abnormal findings on diagnostic imaging of other parts of musculoskeletal system
CPT/HCPCS: 78815; A9552

== ENCOUNTER → 2024-08-03 | Outpatient (CLI) | payer MEDICARE, OTHER ==
[2024-08-03 12:40] LABS: African American GFR (CKD) 72 (>60 ml/min/1.73 sqM); Blood Urea Nitrogen 24 mg/dL (9-20); Non-African American GFR(CKD) 62 (>60 ml/min/1.73 sqM)
--- NOTE | 2024-08-03 13:33 | CT ---
CT chest with contrast. HISTORY: Follow-up lung nodules/mass. COMPARISON: 03/20/2024 TECHNIQUE: Multiple axial images were obtained through the thorax following the uneventful administra tion of nonionic IV contrast material. FINDINGS: In the right lung apex there are 2 adjacent ill-defined nodular densities which are essentially stabl e in size. In the right upper lobe adjacent to the fissure there is a 2.5 x 2.0 cm ill-defined mass which is inc reased in the interval from 2.4 x 1.6 cm. It is highly suspicious for neoplasm and PET scan or tissue sampling is recommended. There is a stable 3.4 mm nodule in the left upper lobe. There is no pleural effusion, pleural thickening or pneumothorax. The great vessels the chest are normal. There is a stable enlarged 16 mm precarinal lymph node. There are 2 approximate 17 mm right hilar lym ph nodes. There is no pulmonary embolus. Limited scanning of the upper abdomen reveals no gross abnormality.. There is a mild compression fracture one of the mid vascular bodies vertebroplasty within the lower t horacic vertebral body IMPRESSION: Mild increase in the right upper lobe lung mass with mediastinal and right hilar lymphadenopathy. The findings are highly suspicious for malignancy and PET scan for direct tissue sampling is recommended . [facility], Workstation: EMILY 08/03/2024 1:31 PM
== END | disposition home or self-care (01) ==
LOC: RADCTMAIN 12:00
PROVIDERS: ATTEND Internal Medicine Critical Care Medicine
DX: R91.1 Solitary pulmonary nodule (principal); R59.0 Localized enlarged lymph nodes
CPT/HCPCS: 82565; 84520; 71260; 36415; Q9967

== ENCOUNTER 2024-08-27 12:25 | Day surgery (SDC) | payer MEDICARE, OTHER ==
[~2024-08-27 12:25] MED LIST changes: -DEXAMETHASONE SOD PHOSPHATE 4 MG/ML 1 ML VIAL IV ONE; -HEPARIN SODIUM,PORCINE 5,000 UNIT/ML 1 ML VIAL SQ PRN; -ONDANSETRON 4 MG/2 ML VIAL IVP ONE; -fentaNYL (PF) 50 MCG/ML 2 ML AMP IV PRN; +fentaNYL (PF) 50 MCG/ML 2 ML AMP IVP PRN
[2024-08-27] MEDS: IV FLUID CONTINUATION 1,000 ML IV ONE (13:01)
[2024-08-27 13:04] VITALS: TEMP 97
--- NOTE | 2024-08-27 13:14 | CT ---
EXAMINATION TYPE: CT chest wo con DATE OF EXAM: 08/27/2024 12:42 PM COMPARISON: CT 08/03/2024, PET/CT 04/23/2024. CLINICAL INDICATION: Male, 84 years old with history of bronch. w/ION robot; PHH, Pre Ion Bronch. TECHNIQUE: Multiple axial images were obtained through the chest. Sagittal and coronal reformats were created for review. MIP was performed on a separate workstation. Contrast used: mL of (None if empty) Oral contrast used: (None if empty) CT DLP: 247.5 mGycm, Automated exposure control for dose reduction was used. FINDINGS: LUNGS/ PLEURA: * Interval increase in size of right apical more peripheral superior lateral nodule with spiculated margins measuring 6 mm previously measured 4 mm on 08/03/2024. * More inferior right upper lobe 23 x 21 mm mass has increased in size previously 23 x 17 mm No focal consolidation, pneumothorax or pleural effusion.r AIRWAY: Patent and unremarkable. HEART: Size within normal limits. Severe coronary artery calcifications present. MEDIASTINUM: No gross evidence of adenopathy. Right perihilar lymph node seen on prior less well appr eciated without contrast. VASCULATURE: No aortic aneurysm. MUSCULOSKELETAL: Mild disc degeneration changes are present throughout the thoracolumbar spine second daniel to osteophyte formation and facet joint arthropathy..Drainage catheter tracks along the subcutane ous tissues of the thorax and right abdominal wall. T12 vertebral body vertebroplasty cement changes. Sternotomy wires are present. SOFT TISSUES/LYMPH NODES: Unremarkable. LOWER NECK: No significant findings. UPPER ABDOMEN: No significant findings. Cholecystectomy clips. Scattered colonic diverticulosis. IMPRESSION: Interval increase in size of right upper lung apex lateral pulmonary nodule as well as the nodular co nsolidation density especially borders along the posterior right upper lung. Prominent an enlarged me diastinal lymph nodes some of which are in the right perihilar region better patient prior. [facility], , 08/27/2024 1:12 PM
[2024-08-27 13:18] LABS: Glucose,Whole Blood 108 mg/dL (70-110)
[2024-08-27] MEDS: LACTATED RINGERS 1,000 ML IV SCH (13:18)
[2024-08-27] MEDS: DEXAMETHASONE SOD PHOSPHATE 4 MG/ML 1 ML VIAL IV ONE (13:22)
[2024-08-27] MEDS: ONDANSETRON 4 MG/2 ML VIAL IVP ONE (13:22)
[2024-08-27] MEDS ORDERED: PHENYLEPHRINE-0.9% NACL SYG 1,000 MCG/10 ML SYRINGE ONE (14:52)
[2024-08-27] MEDS ORDERED: ROCURONIUM 10 MG/ML (5 ML VIAL) IV ONE (14:52)
[2024-08-27] MEDS ORDERED: PROPOFOL 10 MG/ML 20 ML VIAL IV ONE (14:52)
[2024-08-27] MEDS ORDERED: LIDOCAINE 1% INJ 10MG/ML (20 ML MDV) ONE (14:52)
[2024-08-27] MEDS ORDERED: GLYCOPYRROLATE 0.2 MG/ML 2 ML VIAL ONE (14:52)
[2024-08-27] MEDS ORDERED: NEOSTIGMINE 1 MG/ML 10 ML VIAL ONE (14:52)
[2024-08-27] MEDS ORDERED: ePHEDrine 50 MG/ML 1 ML VIAL ONE (14:52)
[2024-08-27] MEDS ORDERED: fentaNYL (PF) 50 MCG/ML 2 ML AMP ONE (14:52)
[2024-08-27] MEDS ORDERED: SUCCINYLCHOLINE CHLORIDE 200 MG/10 ML VIAL IV ONE (14:52)
--- NOTE | 2024-08-27 15:46 | FL ---
EXAMINATION TYPE: FL bronchoscopy DATE OF EXAM: 08/27/2024 3:36 PM COMPARISON: Pre Operative Images if available both CT/MRI or plain film CLINICAL INDICATION: Male, 84 years old with history of LUNG MASS; TECHNIQUE: FL bronchoscopy, multiple fluoroscopic images provided for procedure. DAP: 84649 mGym2 Gycm2 uGym2 cGycm2 or equivalent. FINDINGS: ION bronchoscopy images demonstrate bronchoscope terminating in the lung. No immediate complications identified, no pneumothorax identified. IMPRESSION: 1. No evidence for intraoperative complication. 2. Please see the operative/procedural note for further details. [facility], , 08/27/2024 3:43 PM
[2024-08-27 16:22] VITALS: RESP 16
--- NOTE | 2024-08-27 16:23 | P.PCN ---
Date of Procedure: 08/27/24 Operative Findings: Date of Procedure: 08/27/24 Operative Findings: Preoperative Diagnosis: Right upper lobe mass Mediastinal lymphadenopathy Postoperative Diagnosis: Right upper lobe mass Mediastinal lymphadenopathy Procedure(s) Performed: Flexible bronchoscopy Robotic-assisted bronchoscopy and addition to radial ultrasound evaluation of the right upper lobe lung mass Robotic-assisted transbronchial needle aspirate, transbronchial biopsies of the right upper lobe mass Bronchoalveolar lavage of the right upper lobe mass Endobronchial ultrasound Transbronchial needle aspirate of station 11R and station 7 lymph node Anesthesia: DIANAA Surgeon: Morelia Todd Estimated Blood Loss (ml): 0 Pathology: other Condition: stable Disposition: same day Operative Findings: A physical exam was performed. Informed consent was obtained from the patient after explaining all the risks (pneumothorax, life threatening bleeding, infection and adverse effects due to medications), benefits and alternatives to the procedure which the patient appeared to understand and so stated. The patient was connected to the monitoring devices. General anesthesia was induced and the patient was intubated by anesthesia. A final timeout was performed and the procedure confirmed by the attending staff bronchoscopist. The bronchoscope was inserted and the airway examined. The flexible bronchoscope was removed and the robotic bronchoscope was inserted. Registration was completed. I next guided the robotic bronchoscope using the navigation system into the right upper lobe mass through the post segment. Once in proper position, the bronchoscope was frozen. The radial EBUS probe was placed through the bronchoscope and confirmed abnormal u/s images vs normal lung. A needle was placed through the working channel and under fluoroscopic guidance, we sampled the area thought to have the mass. We then used a cloud biopsy pattern with ultrasound confirmation for 2 additional passes with the needle. U/S evaluation was then used to reconfirm location. Forceps were next introduced through working channel and extended the appropriate distance and 3 transbronchial biopsies were performed using fluoroscopic guidance. The u/s probe was then reinserted to confirm location. When confirmed this process was repeated for a total of 6-8 transbronchial biopsies. Bronchoalveolar lavage of the right upper lobe mass was also done. A total of 6 cc of saline was infused in the right upper lobe posterior segment and 10 cc aspirated. Aspirate was bloody. The catheter guide was removed and the robotic bronchoscope was disconnected from the patient. I next inserted an endobronchial ultrasound and clinical examination of the mediastinal lymph lili stations was done. The patient had an 8.5 x 9 mm station 4L lymph node, 12 x 11 mm station 11R lymph node, 6 x 7 mm station 7 lymph node and 2 smaller lymph nodes involving the station 4L measuring 6 x 5 mm 4 x 5 mm. Using a 22-gauge needle, transbronchial needle aspirate of station 11R and station 7 lymph nodes was done and a total of 3 passes were obtained from each station. Endobronchial ultrasound was removed Flex. bronchoscope was inserted and a therapeutic airway suctioning was done. At the completion of the procedure, no residual secretions or bloody material within the airway. The bronchoscope was removed. The patient was extubated. FINDINGS: 1.The airways appeared normal 2 Successful navigation, ultrasonographic identification, and biopsies of right upper lobe mass 3.The the radial ultrasound view was concentric RECOMMENDATIONS: Await pathology and cytology results The referring physician will be alerted to the results when available. The patient was advised to follow up with the referring physician with the biopsy results Patient will be called with results.
--- NOTE | 2024-08-27 16:29 | XR ---
EXAMINATION TYPE: XR chest 1V portable DATE OF EXAM: 08/27/2024 4:21 PM COMPARISON: Chest radiographs from CT CLINICAL INDICATION: Male, 84 years old with history of BRONCH; [facility] TECHNIQUE: XR chest 1V portable Frontal view of the chest. FINDINGS: Lungs/Pleura: Trace or pneumothorax. There is no evidence of pleural effusion, focal consolidation, o r left pneumothorax. Pulmonary vascularity: Unremarkable. Heart/mediastinum: Cardiomediastinal silhouette is unremarkable. Musculoskeletal: No acute osseous pathology. Midline sternotomy wires are noted. Other findings: None IMPRESSION: There is thought to be a trace right pneumothorax. [facility], , 08/27/2024 4:27 PM
[2024-08-27 17:13] VITALS: BP 143/57; PULSE 70
== END 2024-08-27 17:22 ==
LOC: ORWHC2ENDO 12:25
PROVIDERS: ATTEND Internal Medicine Critical Care Medicine
DX: C34.11 Malignant neoplasm of upper lobe, right bronchus or lung (principal); R59.0 Localized enlarged lymph nodes; J44.9 Chronic obstructive pulmonary disease, unspecified; I48.91 Unspecified atrial fibrillation; I10 Essential (primary) hypertension; I25.10 Atherosclerotic heart disease of native coronary artery without angina pectoris; I25.2 Old myocardial infarction; Z95.1 Presence of aortocoronary bypass graft; E78.5 Hyperlipidemia, unspecified; G47.33 Obstructive sleep apnea (adult) (pediatric); E11.42 Type 2 diabetes mellitus with diabetic polyneuropathy; I67.1 Cerebral aneurysm, nonruptured; N40.0 Benign prostatic hyperplasia without lower urinary tract symptoms; K21.9 Gastro-esophageal reflux disease without esophagitis; Z79.82 Long term (current) use of aspirin; Z79.899 Other long term (current) drug therapy; Z87.891 Personal history of nicotine dependence; Z87.01 Personal history of pneumonia (recurrent); Z98.2 Presence of cerebrospinal fluid drainage device; Z88.2 Allergy status to sulfonamides
CPT/HCPCS: 88108; 88305; 88342; 88341; 87070; 87205; 71045; 71250; 31628; 31629; 31624; 31627; 31652; 31654; J0330; J1100; J2710; J2405; J2003; J3010; J2704; J2371; J1596